=== PATIENT | female | born 1945 | race Caucasian/White ===

== ENCOUNTER → 2018-04-18 | Outpatient (CLI) | payer MEDICARE ==
--- NOTE | 2018-04-18 12:21 | Diagnostic Imaging Report ---
INDICATION: History of tobacco use with a 30 pack year history. Current tobacco use. TECHNIQUE: Noncontrast, low-dose CT imaging was performed according to lung cancer screening protocol. COMPARISON: CT chest of 06/17/2013. FINDINGS: HEART/MEDIASTINUM: The heart size is normal with mild scattered coronary artery calcifications. 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 Calcified mediastinal and hilar granulomas are present. No definitive evidence for pathologically enlarged lymphadenopathy. LUNGS: Advanced emphysematous changes about the lung parenchyma are present, progressed from the prior study. There is disproportionate involvement of the upper lobe distribution. MEASURED PULMONARY NODULES: There are prominent pleural/parenchymal changes at the lung apices, slightly progressed from the prior study but generally stable otherwise. Calcified granuloma in the right lower lobe. There are several scattered small micronodules present. Marker nodules are as follow: Image 227/series 4, right lower lobe solid nodule 3 x 2 mm. Image 227/series 4, posterior right lower lobe predominantly solid 3 mm nodule adjacent to the bronchus. Triangular shaped density along the inferior fissure plane anterior right mid lung 8 mm in maximum size (image 157/series 4). OTHER: None. IMPRESSION: 1. Emphysematous change about the lung parenchyma with scattered pleural/parenchymal changes, particularly in the lung apices. The findings have overall progressed from prior imaging. 2. A few scattered small micronodules with largest at 3 mm in size. 3. Findings compatible with prior granulomatous changes. LUNG-RADS CATEGORY: 2A LUNG SCREENING MANAGEMENT/RECOMMENDATIONS: Continued annual screening with low dose CT in 12 months. Notes: Lung rads category 1 or 2 does not mean that an individual does not have lung cancer or other active disease process, but rather nothing is identified to meet criteria for current lung pathology. Therefore, continued annual lung cancer screening should be performed. It is noted that this is a low dose CT examination. As a technical result, the examination is limited in overall assessment compared to a conventional CT examination of the chest. Dictated by: Dictated on workstation # [id number]
== END ==
LOC: RAD 07:47
PROVIDERS: ATTEND Family Medicine
DX: Z12.2 Encounter for screening for malignant neoplasm of respiratory organs (principal); J43.9 Emphysema, unspecified; F17.210 Nicotine dependence, cigarettes, uncomplicated; R91.8 Other nonspecific abnormal finding of lung field

== ENCOUNTER → 2018-05-15 | Outpatient (CLI) | payer MEDICARE ==
--- NOTE | 2018-05-15 12:39 | Diagnostic Imaging Report ---
INDICATION: Routine screening. COMPARISON is made with prior mammogram from 11/17/2012. TECHNIQUE: 2-D and 3-D bilateral screening mammography was performed with CAD. FINDINGS: Both breasts are heterogeneously dense, limiting the sensitivity of mammography. No mass or malignant appearing microcalcifications are seen. Axillae are unremarkable. IMPRESSION: BI-RADS category 1. No mammographic features suspicious for malignancy are identified. ACR BI-RADS Category 1: Negative. Result letter will be mailed to the patient. Note: At least 10% of breast cancer is not imaged by mammography. Dictated by: Dictated on workstation # [id number]
== END ==
LOC: RAD 07:53
PROVIDERS: ATTEND Nurse Practitioner Family
DX: Z12.31 Encounter for screening mammogram for malignant neoplasm of breast (principal)
CPT/HCPCS: 77067

== ENCOUNTER 2018-06-18 09:45 | Outpatient (CLI) | payer MEDICARE ==
[~2018-06-18] VITALS: Ht 167.6 cm; Wt 52.2 kg
[2018-06-18] MEDS ORDERED: CETI-176 PO (09:50)
[2018-06-18] MEDS ORDERED: MULT-974 PO (09:50)
[2018-06-18] MEDS ORDERED: CALC-823 PO (09:50)
== END 2018-06-18 10:01 | disposition home or self-care (01) ==
LOC: PREOP 09:45
PROVIDERS: ATTEND Specialist
DX: Z01.818 Encounter for other preprocedural examination (principal)

== ENCOUNTER 2018-06-20 08:55 | Day surgery (SDC) | payer MEDICARE ==
[~2018-06-20] VITALS: Ht 167.6 cm; Wt 52.2 kg
[~2018-06-20 08:55] MED LIST: CALC-823 PO; CETI-176 PO; MULT-974 PO
[2018-06-20] MEDS ORDERED: MOXIFLOXACIN OPHTH SOLN 5 MG/ML 0.3 ML SYRINGE OP ONE (09:00)
[2018-06-20] MEDS ORDERED: TIMOLOL MALEATE 0.5% 5 ML (TIMOPTIC) BTL OU PRN (09:00)
[2018-06-20] MEDS ORDERED: POVIDONE (BETADINE) OPHTH SOLN 5% 30 ML OP ONE (09:00)
[2018-06-20] MEDS ORDERED: LIDOCAINE PF 1% 2 ML AMP IR PRN (09:00)
[2018-06-20 09:01] VITALS: BP 180/78
--- OUTSIDE RECORDS SUMMARY | 2018-06-20 09:01 | XMS REPORT | CCD ---
Author Author Lottie Marshall MD, [facility] Address [address] [place] [address] Phone Care Team Providers Care Worship Leader Name Role Phone PP Unavailable CCM Unavailable Summary Purpose Interface Exchange Insurance Providers Payer name Policy type / Coverage type Covered constitution party ID Effective Begin Date Effective End Date WPS Medicare Part B Medicare Part B [id number] Unknown Family history Daughter Diagnosis Age At Onset No Family Disease Entered N/A Mother Diagnosis Age At Onset No Family Disease Entered N/A Father Diagnosis Age At Onset Heart Attack Unknown Brother Diagnosis Age At Onset No Family Disease Entered N/A Social History Social History Element Codes Description Effective Dates Marital status Unknown 03/25/2018 Number of children Unknown 1 04/20/2013 Employment Unknown Currently employed 04/20/[address]: 74489730 Current every day smoker 04/20/2013 Number of years using tobacco Unknown 20 04/20/2013 Number of cigarettes/day Unknown 20 (One Pack) 04/20/[address]: 778057391 Never drinks alcohol 04/20/2013 Has the patient ever used illegal drugs? Unknown Has never used illegal drugs 04/20/2013 Allergies, Adverse Reactions, Alerts Substance Reaction Codes Entered Date Inactivated Date Status * NO KNOWN FOOD ALLERGIES Unknown 04/20/2013 No Inactive Date Active Seasonal Unknown 04/20/2013 No Inactive Date Active SULFA (SULFONAMIDE ANTIBIOTICS) rash, nausea Unknown 2012 No Inactive Date Active Past Medical History Illness Codes Condition Status Onset Date Resolved Date Acute laryngopharyngitis ICD-9: 465.0 ICD-10: J06.0 Active 08/29/2016 Unknown Other allergic rhinitis ICD-9: 477.8 ICD-10: J30.89 Active 03/25/2018 Unknown Pneumonia due to other specified bacteria ICD-9: 482.81 ICD-10: J15.8 Active 06/02/2018 Unknown Encounter for screening mammogram for malignant neoplasm of breast ICD-9: V76.12 ICD-10: Z12.31 Active 09/03/2016 Unknown Other emphysema ICD-9 : 492.8 ICD-10: J43.8 Active 04/15/2018 Unknown Tobacco use ICD-9: 305.1 ICD-10: Z72.0 Active 04/20/2013 Unknown Otalgia, right ear ICD -9: 388.70 ICD-10: H92.01 Active 04/21/2015 Unknown Periapical abscess without sinus ICD-9: 522.5 ICD-10: K04.7 Active 02/15/2017 Unknown Cough ICD-9: 786.2 ICD-10: R05 Active 04/13/2014 Unknown Acute bronchitis due to other specified organisms ICD-9: 466.0 ICD-10: J20.8 Active 04/13/2014 Unknown Generalized enlarged lymph nodes ICD-9: 785.6 ICD-10: R59.1 Active 05/06/2016 Unknown Otalgia, bilateral ICD -9: 388.70 ICD-10: H92.03 Active 11/06/2015 Unknown Chronic obstructive pulmonary disease, unspecified ICD-9: 491.20 ICD-10: J44.9 Active 04/18/2015 Unknown Tinnitus, bilateral ICD-9: 388.30 ICD-10: H93.13 Active 04/18/2015 Unknown Allergic rhinitis, unspecified ICD-9: 477.9 ICD-10: J30.9 Active 03/21/2015 Unknown ACUTE BRONCHITIS ICD-9 : 466.0 Active 04/13/2014 Unknown ACUTE SINUSITIS ICD-9 : 461.9 Active 04/13/2014 Unknown COUGH ICD-9: 786.2 Active 04/13/2014 Unknown Sciatica Unknown Active 03/29/2014 Unknown Right hip pain ICD-9: 719.45 Active 03/29/2014 Unknown Sciatica ICD-9: 724.3 Active 03/29/2014 Unknown Shoulder pain, acute ICD-9: 719.41 Active 03/29/2014 Unknown Rash ICD-9: 782.1 Active 09/10/2013 Unknown Routine medical exam ICD-9: V70.0 Active 04/20/2013 Unknown TOBACCO USE DISORDER ICD-9: 305.1 Active 04/20/2013 Unknown Problems Condition Codes Effective Dates Condition Status Acute laryngopharyngitis ICD-9: 465.0 ICD-10: J06.0 08/29/2016 Active Other allergic rhinitis ICD-9: 477.8 ICD-10: J30.89 03/25/2018 Active Pneumonia due to other specified bacteria ICD-9: 482.81 ICD-10: J15.8 06/02/2018 Active Encounter for screening mammogram for malignant neoplasm of breast ICD-9: V76.12 ICD-10: Z12.31 09/03/2016 Active Other emphysema ICD-9 : 492.8 ICD-10: J43.8 04/15/2018 Active Tobacco use ICD-9: 305.1 ICD-10: Z72.0 04/20/2013 Active Otalgia, right ear ICD -9: 388.70 ICD-10: H92.01 04/21/2015 Active Periapical abscess without sinus ICD-9: 522.5 ICD-10: K04.7 02/15/2017 Active Cough ICD-9: 786.2 ICD-10: R05 04/13/2014 Active Acute bronchitis due to other specified organisms ICD-9: 466.0 ICD-10: J20.8 04/13/2014 Active Generalized enlarged lymph nodes ICD-9: 785.6 ICD-10: R59.1 05/06/2016 Active Otalgia, bilateral ICD -9: 388.70 ICD-10: H92.03 11/06/2015 Active Chronic obstructive pulmonary disease, unspecified ICD-9: 491.20 ICD-10: J44.9 04/18/2015 Active Tinnitus, bilateral ICD-9: 388.30 ICD-10: H93.13 04/18/2015 Active Allergic rhinitis, unspecified ICD-9: 477.9 ICD-10: J30.9 03/21/2015 Active ACUTE BRONCHITIS ICD-9 : 466.0 04/13/2014 Active ACUTE SINUSITIS ICD-9 : 461.9 04/13/2014 Active COUGH ICD-9: 786.2 04/13/2014 Active Sciatica Unknown 03/29/2014 Active Right hip pain ICD-9: 719.45 03/29/2014 Active Sciatica ICD-9: 724.3 03/29/2014 Active Shoulder pain, acute ICD-9: 719.41 03/29/2014 Active Rash ICD-9: 782.1 09/10/2013 Active Routine medical exam ICD-9: V70.0 04/20/2013 Active TOBACCO USE DISORDER ICD-9: 305.1 04/20/2013 Active Medications Medication Codes Instructions Start Date Stop Date Status Fill Instructions prednisone 20 mg tablet RxNorm: 629952 2 Tablet(s) PO daily 06/06/2018 Active Zithromax Z-Sukumar 250 mg tablet RxNorm: 243265 1 Tablet(s) PO QHS 06/02/2018 No Stop Date Active cefdinir 300 mg capsule RxNorm: 948873 1 Capsule(s) PO BID 06/11/2018 Active Kenalog 40 mg/mL suspension for injection RxNorm: 0806820 1 Milliliter(s) Inj 06/02/2018 06/02/2018 Inactive ceftriaxone 500 mg solution for injection RxNorm: 5605877 1 Milliliter(s) Inj 06/02/2018 06/02/2018 Inactive albuterol sulfate 2.5 mg/3 mL (0.083 %) solution for nebulization RxNorm: 622871 3 Milliliter(s) INH Q4 PRN 04/17/2018 06/15/2018 Active Kenalog 40 mg/mL suspension for injection RxNorm: 3143872 1 Milliliter(s) Inj 03/25/2018 03/25/2018 Inactive naratriptan 2.5 mg tablet RxNorm: 081869 TAKE ONE TABLET BY MOUTH AT ONSET OF MIGRAINE. MAY REPEAT IN 4 HOURS. LIMIT 2 TABLETS PER 24 HOURS. 09/16/2017 No Stop Date Active prednisone 10 mg tablets in a dose pack RxNorm: 502920 1 Tablet(s) PO UD 06/24/2017 06/29/2017 Inactive 6-5-4-3-2-1 cefdinir 300 mg capsule RxNorm: 346778 1 Capsule(s) PO BID 09/201707/03/2017 Inactive Zithromax Z-Sukumar 250 mg tablet RxNorm: 750633 1 Tablet(s) PO UD 06/21/2017 06/25/2017 Inactive zpack Zithromax Z-Sukumar 250 mg tablet RxNorm: 519683 1 Tablet(s) PO UD 04/17/2017 04/21/2017 Inactive zpack amoxicillin 500 mg tablet RxNorm: 873051 1 Tablet(s) PO TID 02/21/2017 Inactive naratriptan 2.5 mg tablet RxNorm: 738606 Tablet(s) TAKE ONE TABLET BY MOUTH AT ONSET OF MIGRAINE, MAY REPEAT IN 4 HOURS. LIMIT 5/24 HOURS. 12/10/2016 12/11/2016 Inactive Zithromax Z-Sukumar 250 mg tablet RxNorm: 634967 1 Tablet(s) PO UD 08/29/2016 09/02/2016 Inactive zpack Elimite 5 % topical cream RxNorm: 947461 1 TOP time may repeat in two weeks 05/24/2016 06/22/2016 Inactive Elimite 5 % topical cream RxNorm: 640151 1 TOP time may repeat in two weeks 05/24/2016 05/23/2016 Inactive azithromycin 250 mg tablet RxNorm: 213797 1 Tablet(s) PO UD 2 pills on day #1, then one pill daily x 4 more days 05/07/2016 08/28/2016 Inactive naratriptan 2.5 mg tablet RxNorm: 181630 TAKE ONE TABLET BY MOUTH AT ONSET OF MIGRAINE, MAY REPEAT IN 4 HOURS. LIMIT 5/24 HOURS. 201503/09/2016 Inactive naratriptan 1 mg tablet RxNorm: 932935 Tablet(s) TAKE ONE TABLET BY MOUTH AT ONSET OF MIGRAINE, MAY REPEAT IN 4 HOURS IF MIGRAINE IS NOT RESOLVED...LIMIT 5 PER 25 HOURS 04/11/2015 06/23/2017 Inactive INSURANCE WILL NOT PAY FOR MORE THAN 9 PILLS PER RX prednisone 10 mg tablets in a dose pack RxNorm: 569987 1 Tablet(s) PO UD 03/28/2015 04/02/2015 Inactive 6-5-4-3-2-1 prednisone 10 mg tablets in a dose pack RxNorm: 498246 1 Tablet(s) PO UD 03/28/2015 03/27/2015 Inactive 6-5-4-3-2-1 Kenalog 40 mg/mL suspension for injection RxNorm: 4140203 Milliliter(s) Inj 03/22/2015 03/22/2015 Inactive Keflex 500 mg capsule RxNorm: 475798 1 Capsule(s) PO TID 201403/28/2015 Inactive naratriptan 2.5 mg tablet RxNorm: 887942 Tablet(s) PO PRN as needed 01/19/2015 03/07/2016 Inactive one at onset of migraine, may repeat in 4 hrs. limit 5 in 24 hr.s naratriptan 1 mg tablet RxNorm: 632519 Tablet(s) TAKE ONE TABLET BY MOUTH AT ONSET OF MIGRAINE, MAY REPEAT IN 4 HOURS IF MIGRAINE IS NOT RESOLVED...LIMIT 5 PER 25 HOURS 01/14/2015 01/29/2015 Inactive naratriptan 1 mg tablet RxNorm: 102251 Tablet(s) TAKE ONE TABLET BY MOUTH AT ONSET OF MIGRAINE, MAY REPEAT IN 4 HOURS IF MIGRAINE IS NOT RESOLVED...LIMIT 5 PER 25 HOURS 09/27/2014 10/12/2014 Inactive naratriptan 1 mg tablet RxNorm: 179598 TAKE ONE TABLET BY MOUTH AT ONSET OF MIGRAINE, MAY REPEAT IN 4 HOURS IF MIGRAINE IS NOT RESOLVED...LIMIT 5 PER 25 HOURS 07/16/2014 07/31/2014 Inactive ceftriaxone 500 mg solution for injection RxNorm: 575506 Inj 04/13/2014 Inactive albuterol sulfate 2.5 mg/3 mL (0.083 %) solution for nebulization RxNorm: 922771 3 Milliliter(s) INH Q4 PRN 04/13/2014 06/11/2014 Inactive Kenalog 40 mg/mL suspension for injection RxNorm: 3514934 Milliliter(s) Inj 04/13/2014 04/13/2014 Inactive Flonase 50 mcg/actuation nasal spray,suspension RxNorm: 461286 1 [place] NASAL daily 04/13/2014 04/26/2014 Inactive Zithromax Z-Sukumar 250 mg tablet RxNorm: 727181 1 Tablet(s) PO UD 04/13/2014 04/17/2014 Inactive zpack Kenalog 40 mg/mL suspension for injection RxNorm: 0490666 Milliliter(s) Inj 03/29/2014 03/29/2014 Inactive nystatin-triamcinolone 100,000 unit/g-0.1 % topical cream RxNorm: 1934972 1 Application TOP BID 09/10/2013 09/23/2013 Inactive Bactroban 2 % topical cream RxNorm: 522757 1 Application TOP BID 09/10/2013 09/23/2013 Inactive naratriptan 2.5 mg tablet RxNorm: 843798 Tablet(s) PO PRN 08/2001/18/2015 Inactive one at onset of migraine, may repeat in 4 hrs. limit 5 in 24 hr.s naratriptan 1 mg tablet RxNorm: 279318 1 Tablet(s) PO 201308/19/2013 Inactive one at onset of migraine may repeat in in 4 hr if migraine not resolved. limit 5mg in 25 hr. multivitamin capsule RxNorm: 1 Capsule(s) PO daily No Start Date Active Fish Oil 1,000 mg capsule RxNorm: 1 Capsule(s) PO daily No Start Date Active Calcium 600 + D(3) 600 mg (1,500 mg)-400 unit tablet RxNorm: 975684 2 Tablet(s) PO daily No Start Date Active naratriptan 1 mg tablet RxNorm: 350027 1 Tablet(s) PO No Start Date 07/06/2013 Inactive one at onset of migraine may repeat in naratriptan 2.5 mg tablet RxNorm: 221987 Tablet(s) PO PRN No Start Date 08/19/2013 Inactive Zomig 2.5 mg tablet RxNorm: 071794 Tablet(s) PO PRN No Start Date 08/19/2013 Inactive Daliresp 500 mcg tablet RxNorm: 3818837 1 Tablet(s) PO daily No Start Date 11/06/2015 Inactive Medication Administered Medication Codes Instructions Start Date Status ceftriaxone 500 mg solution for injection RxNorm: 6626347 1Milliliter 06/02/2018 Active Kenalog 40 mg/mL suspension for injection RxNorm: 8867678 1Milliliter 06/02/2018 Active Kenalog 40 mg/mL suspension for injection RxNorm: 3411877 1Milliliter 03/25/2018 No longer Active Kenalog 40 mg/mL suspension for injection RxNorm: 6736892 Milliliter 03/22/2015 No longer Active ceftriaxone 500 mg solution for injection RxNorm: 562040 04/13/2014 No longer Active Kenalog 40 mg/mL suspension for injection RxNorm: 2752636 Milliliter 04/13/2014 No longer Active Kenalog 40 mg/mL suspension for injection RxNorm: 6881878 Milliliter 03/29/2014 No longer Active Immunizations Vaccine Codes Date Status Influenza CVX: 141 02/17/2018 completed PPD Unknown 04/22/2015 completed Assessments Condition Codes Effective Dates Pneumonia due to other specified bacteria ICD-10: J15.8 ICD-9: 482.81 06/02/2018 Acute laryngopharyngitis ICD-10: J06.0 ICD-9: 465.0 06/02/2018 Other allergic rhinitis ICD-10: J30.89 ICD-9: 477.8 06/02/2018 Tobacco use ICD-10: Z72.0 ICD-9: 305.1 04/15/2018 Other emphysema ICD-10: J43.8 ICD-9: 492.8 04/15/2018 Encounter for screening mammogram for malignant neoplasm of breast ICD-10: Z12.31 ICD-9: V76.12 04/15/2018 Otalgia, right ear ICD-10: H92.01 ICD-9: 388.70 03/25/2018 Periapical abscess without sinus ICD-10: K04.7 ICD-9: 522.5 02/15/2017 Cough ICD-10: R05 ICD-9: 786.2 09/03/2016 Acute bronchitis due to other specified organisms ICD-10: J20.8 ICD-9: 466.0 05/07/2016 Generalized enlarged lymph nodes ICD-10: R59.1 ICD-9: 785.6 05/07/2016 Otalgia, bilateral ICD-10: H92.03 ICD-9: 388.70 11/07/2015 Chronic obstructive pulmonary disease, unspecified ICD-10: J44.9 ICD-9: 491.20 04/19/2015 Tinnitus, bilateral ICD-10: H93.13 ICD-9: 388.30 04/19/2015 Allergic rhinitis, unspecified ICD-10: J30.9 ICD-9: 477.9 03/22/2015 ACUTE BRONCHITIS ICD-9: 466.0 04/13/2014 ACUTE SINUSITIS ICD-9: 461.9 04/13/2014 COUGH ICD-9: 786.2 04/13/2014 Right hip pain ICD-9: 719.45 03/29/2014 Sciatica ICD-9: 724.3 03/29/2014 Shoulder pain, acute ICD-9: 719.41 2013 Rash ICD-9: 782.1 09/10/2013 Routine medical exam ICD-9: V70.0 2012 TOBACCO USE DISORDER ICD-9: 305.1 2012 Reason For Visit Reason For Visit Effective Dates Notes sinus congestion 06/02/2018 well woman exam (65+ years) 04/15/2018 tinnitus 03/25/2018 cough 06/24/2017 dental pain 02/15/2017 cough 09/03/2016 cough 08/29/2016 sore throat 05/07/2016 tinnitus 11/07/2015 tinnitus 04/19/2015 tinnitus 03/22/2015 sinus congestion 04/13/2014 shoulder pain 03/29/2014 right shoulder skin lesion 09/10/2013 headache 04/20/2013 Results Observation Observation Code Item Item Code Result Date Tsh Ord6 TSH (3rd IS) 1.01 uIU/mL 04/15/2018 Cbc With Differential Ord2 WBC 7.01 K/ul 04/15/2018 Cbc With Differential Ord2 RBC 4.50 M/ul 04/15/2018 Cbc With Differential Ord2 HGB 13.8 g/dl 04/15/2018 Cbc With Differential Ord2 Neut% 60.8 % 04/15/2018 Cbc With Differential Ord2 HCT 42.1 % 04/15/2018 Cbc With Differential Ord2 MCV 93.6 fl 04/15/2018 Cbc With Differential Ord2 Lymph% 31.0 % 04/15/2018 Cbc With Differential Ord2 MCH 30.7 pg 04/15/2018 Cbc With Differential Ord2 Mathews% 6.7 % 04/15/2018 Cbc With Differential Ord2 MCHC 32.8 pg 04/15/2018 Cbc With Differential Ord2 Eos% 1.4 % 04/15/2018 Cbc With Differential Ord2 Baso% 0.1 % 04/15/2018 Cbc With Differential Ord2 PLT 290 K/ul 04/15/2018 Cbc With Differential Ord2 RDW 13.8 % 04/15/2018 Cbc With Differential Ord2 Neut ABS# 4.26 K/ul 04/15/2018 Cbc With Differential Ord2 Lymph ABS# 2.17 K/ul 04/15/2018 Cbc With Differential Ord2 Mathews ABS# 0.5 K/ul 04/15/2018 Cbc With Differential Ord2 Eos ABS# 0.1 K/ul 04/15/2018 Cbc With Differential Ord2 Baso ABS# 0.0 K/ul 04/15/2018 Comp Metabolic Fxy970 NA 137 mEq/L 04/15/2018 Comp Metabolic Wiw195 K 4.5 mEq/L 04/15/2018 Comp Metabolic Qww206 CL 100 mEq/L 04/15/2018 Comp Metabolic Ola111 CO2 29.0 mEq/L 04/15/2018 Comp Metabolic Ejq047 ANION GAP 13 04/15/2018 Comp Metabolic Hia115 GLUCOSE 93 mg/dL 04/15/2018 Comp Metabolic Flq261 Creat 0.8 mg/dL 04/15/2018 Comp Metabolic Whn770 eGFR 79 ml/min/1.73m2 04/15/2018 Comp Metabolic Dvo935 BUN 21 mg/dL 04/15/2018 Comp Metabolic Xeh010 B/C Ratio 27.3 Ratio 04/15/2018 Comp Metabolic Hlt988 CALCIUM 9.5 mg/dL 04/15/2018 Comp Metabolic Vtw900 ALK PHOS 81 U/L 04/15/2018 Comp Metabolic Kht294 AST(SGOT) 20 U/L 04/15/2018 Comp Metabolic Vhr006 ALT(SGPT) 12 U/L 04/15/2018 Comp Metabolic Pfp525 BILI T 0.6 mg/dL 04/15/2018 Comp Metabolic Nqp911 ALBUMIN 4.3 g/dL 04/15/2018 Comp Metabolic Ddn536 TPRO 7.0 g/dL 04/15/2018 Comp Metabolic Ody847 GLOB 2.7 g/dL 04/15/2018 Comp Metabolic Iyu177 A/G Ratio 1.6 Ratio 04/15/2018 Comp Metabolic Bis729 Osmo 276 mOsmo 04/15/2018 Lipid Ord30 CHOL 205 mg/dL 04/15/2018 Lipid Ord30 HDL 51.0 mg/dl 04/15/2018 Lipid Ord30 TRIG 79 mg/dL 04/15/2018 Lipid Ord30 LDL 138 mg/dL 04/15/2018 Lipid Ord30 C/HDL 4.0 Ratio 04/15/2018 Vitamin D 25 Oh Lcs5470 VITAMIN D, 25 HYDROXY 46.83 ng/mL Cbc With Differential Ord2 WBC 5.13 K/ul 10/18/2015 Cbc With Differential Ord2 RBC 4.72 M/ul 10/18/2015 Cbc With Differential Ord2 HGB 14.4 g/dl 10/18/2015 Cbc With Differential Ord2 HCT 44.4 % 10/18/2015 Cbc With Differential Ord2 Neut% 54.6 % 10/18/2015 Cbc With Differential Ord2 MCV 94.1 fl 10/18/2015 Cbc With Differential Ord2 Lymph% 33.5 % 10/18/2015 Cbc With Differential Ord2 MCH 30.5 pg 10/18/2015 Cbc With Differential Ord2 Mathews% 6.0 % 10/18/2015 Cbc With Differential Ord2 MCHC 32.4 pg 10/18/2015 Cbc With Differential Ord2 Eos% 5.5 % 10/18/2015 Cbc With Differential Ord2 PLT 286 K/ul 10/18/2015 Cbc With Differential Ord2 Baso% 0.4 % 10/18/2015 Cbc With Differential Ord2 Neut ABS# 2.80 K/ul 10/18/2015 Cbc With Differential Ord2 RDW 14.0 % 10/18/2015 Cbc With Differential Ord2 Lymph ABS# 1.72 K/ul 10/18/2015 Cbc With Differential Ord2 Mathews ABS# 0.3 K/ul 10/18/2015 Cbc With Differential Ord2 Eos ABS# 0.3 K/ul 10/18/2015 Cbc With Differential Ord2 Baso ABS# 0.0 K/ul 10/18/2015 Comp Metabolic Ont386 NA 138 mEq/L 10/18/2015 Comp Metabolic Jhw336 K 4.4 mEq/L 10/18/2015 Comp Metabolic Jts388 CL 103 mEq/L 10/18/2015 Comp Metabolic Kwc300 CO2 30.0 mEq/L 10/18/2015 Comp Metabolic Zlz868 ANION GAP 9 10/18/2015 Comp Metabolic Xxy529 GLUCOSE 93 mg/dL 10/18/2015 Comp Metabolic Ovi048 Creat 0.7 mg/dL 10/18/2015 Comp Metabolic Xrn592 eGFR 90 ml/min/1.73m2 10/18/2015 Comp Metabolic Pnp605 BUN 19 mg/dL 10/18/2015 Comp Metabolic Pem657 B/C Ratio 27.5 Ratio 10/18/2015 Comp Metabolic Ghl941 CALCIUM 9.3 mg/dL 10/18/2015 Comp Metabolic Qam989 ALK PHOS 95 U/L 10/18/2015 Comp Metabolic Usm746 AST(SGOT) 17 U/L 10/18/2015 Comp Metabolic Svb052 ALT(SGPT) 10 U/L 10/18/2015 Comp Metabolic Xxd447 BILI T 0.5 mg/dL 10/18/2015 Comp Metabolic Sre473 ALBUMIN 4.4 g/dL 10/18/2015 Comp Metabolic Zrd790 TPRO 7.2 g/dL 10/18/2015 Comp Metabolic Uax063 GLOB 2.8 g/dL 10/18/2015 Comp Metabolic Wil229 A/G Ratio 1.6 Ratio 10/18/2015 Comp Metabolic Mwv766 Osmo 278 mOsmo 10/18/2015 Lipid Ord30 CHOL 201 mg/dL 10/18/2015 Lipid Ord30 HDL 45.0 mg/dl 10/18/2015 Lipid Ord30 TRIG 122 mg/dL 10/18/2015 Lipid Ord30 LDL 132 mg/dL 10/18/2015 Lipid Ord30 C/HDL 4.5 Ratio 10/18/2015 Tsh Ord6 hTSH II 1.46 uIU/mL 10/18/2015 Vitamin D 25 Oh Htm3387 VITAMIN D, 25 HYDROXY 42.46 ng/mL Comp Metabolic Lrb346 NA 135 mEq/L 03/24/2015 Comp Metabolic Bhd351 K 4.1 mEq/L 03/24/2015 Comp Metabolic Vfl835 CL 103 mEq/L 03/24/2015 Comp Metabolic Jeb443 CO2 28.0 mEq/L 03/24/2015 Comp Metabolic Mmm313 ANION GAP 8 03/24/2015 Comp Metabolic Cdt546 GLUCOSE 101 mg/dL 03/24/2015 Comp Metabolic Pts619 Creat 0.7 mg/dL 03/24/2015 Comp Metabolic Agg966 eGFR 87 ml/min/1.73m2 03/24/2015 Comp Metabolic Rfc611 BUN 17 mg/dL 03/24/2015 Comp Metabolic Bqo239 B/C Ratio 23.9 Ratio 03/24/2015 Comp Metabolic Hbx355 CALCIUM 10.0 mg/dL 03/24/2015 Comp Metabolic Gxy198 ALK PHOS 86 U/L 03/24/2015 Comp Metabolic Kgs236 AST(SGOT) 20 U/L 03/24/2015 Comp Metabolic Dhf327 ALT(SGPT) 13 U/L 03/24/2015 Comp Metabolic Neh909 BILI T 0.5 mg/dL 03/24/2015 Comp Metabolic Fxp905 ALBUMIN 4.8 g/dL 03/24/2015 Comp Metabolic Pqs177 TPRO 7.8 g/dL 03/24/2015 Comp Metabolic Pak200 GLOB 3.0 g/dL 03/24/2015 Comp Metabolic Qks495 A/G Ratio 1.6 Ratio 03/24/2015 Comp Metabolic Fef458 Osmo 272 mOsmo 03/24/2015 Tsh Ord6 hTSH II 0.97 uIU/mL 03/24/2015 Cbc With Differential Ord2 WBC 7.5 K/uL 03/24/2015 Cbc With Differential Ord2 LYM 1.7 K/uL 03/24/2015 Cbc With Differential Ord2 LYM% 22.6 % 03/24/2015 Cbc With Differential Ord2 NEUT/GRAN 5.4 K/uL 03/24/2015 Cbc With Differential Ord2 NEUT/GRAN % 72.6 % 03/24/2015 Cbc With Differential Ord2 MID 0.4 K/uL 03/24/2015 Cbc With Differential Ord2 MID% 4.8 % 03/24/2015 Cbc With Differential Ord2 RBC 4.65 M/uL 03/24/2015 Cbc With Differential Ord2 HGB 14.4 g/dL 03/24/2015 Cbc With Differential Ord2 HCT 44.6 % 03/24/2015 Cbc With Differential Ord2 MCV 96 fL 03/24/2015 Cbc With Differential Ord2 MCH 31 pg 03/24/2015 Cbc With Differential Ord2 MCHC 32 g/dL 03/24/2015 Cbc With Differential Ord2 PLT 281 K/uL 03/24/2015 Cbc With Differential Ord2 RDW 14.3 % 03/24/2015 Lipid Ord30 CHOL 211 mg/dL 03/24/2015 Lipid Ord30 HDL 48.0 mg/dl 03/24/2015 Lipid Ord30 TRIG 88 mg/dL 03/24/2015 Lipid Ord30 LDL 145 mg/dL 03/24/2015 Lipid Ord30 C/HDL 4.4 Ratio 03/24/2015 Review of Systems System Result Effective Dates Constitutional recent illness 06/02/2018 Constitutional No chills 06/02/2018 Constitutional No diaphoresis 06/02/2018 Constitutional No fever 06/02/2018 Eyes No eye erythema 06/02/2018 Ears/Nose/Throat/Neck nasal allergies Ears/Nose/Throat/Neck nasal discharge Ears/Nose/Throat/Neck postnasal drip Ears/Nose/Throat/Neck sinus congestion Ears/Nose/Throat/Neck sore throat 2018 Cardiovascular No chest pain/pressure Cardiovascular No dyspnea 06/02/2018 Respiratory chest congestion 06/02/2018 Respiratory cough 06/02/2018 Respiratory No dyspnea 06/02/2018 Gastrointestinal No constipation 2018 Gastrointestinal No diarrhea 06/02/2018 Gastrointestinal No nausea 06/02/2018 Gastrointestinal No vomiting 06/02/2018 Dermatologic No rash 06/02/2018 Neurologic No alteration of consciousness 06/02/2018 Neurologic No mental status change 2018 Respiratory dyspnea on exertion 2018 Constitutional No recent illness 2017 Constitutional No chills 04/15/2018 Constitutional No fatigue 04/15/2018 Constitutional No fever 04/15/2018 Constitutional No insomnia 04/15/2018 Constitutional No malaise 04/15/2018 Eyes No blindness 04/15/2018 Eyes No vision change 04/15/2018 Ears/Nose/Throat/Neck No dental pain Ears/Nose/Throat/Neck No dizziness 2017 Ears/Nose/Throat/Neck No dysphagia 2017 Ears/Nose/Throat/Neck No headache 2017 Ears/Nose/Throat/Neck hearing loss 2017 Ears/Nose/Throat/Neck No nasal allergies 04/15/2018 Ears/Nose/Throat/Neck No sore throat Ears/Nose/Throat/Neck No postnasal drip 04/15/2018 Ears/Nose/Throat/Neck No sinus congestion 04/15/2018 Cardiovascular No chest pain/pressure Cardiovascular No dyspnea 04/15/2018 Cardiovascular No edema 04/15/2018 Cardiovascular No exercise intolerance Cardiovascular No fatigue 04/15/2018 Cardiovascular No near-syncope/dizziness 04/15/2018 Respiratory No chest tightness 2017 Respiratory cigarette smoking 04/15/2018 Respiratory No cough 04/15/2018 Respiratory No dyspnea 04/15/2018 Respiratory No pedal edema 04/15/2018 Respiratory No snoring 04/15/2018 Respiratory No wheezing 04/15/2018 Gastrointestinal No hemorrhoids 2017 Gastrointestinal No abdominal pain 2017 Gastrointestinal No constipation 2017 Gastrointestinal No diarrhea 04/15/2018 Gastrointestinal No gastroesophageal reflux 04/15/2018 Gastrointestinal No melena 04/15/2018 Gastrointestinal No nausea 04/15/2018 Gastrointestinal No vomiting 04/15/2018 Genitourinary/Nephrology No dysuria 04/15 Genitourinary/Nephrology No nocturia Genitourinary/Nephrology No urinary incontinence 04/15/2018 Musculoskeletal No stiffness 04/15/2018 Musculoskeletal No swelling 04/15/2018 Musculoskeletal No muscle weakness 2017 Musculoskeletal No myalgias 04/15/2018 Dermatologic No rash 04/15/2018 Dermatologic No scar 04/15/2018 Neurologic No dizziness 04/15/2018 Neurologic No headache 04/15/2018 Neurologic No neck pain 04/15/2018 Neurologic No syncope 04/15/2018 Psychiatric No anxiety 04/15/2018 Psychiatric No depression 04/15/2018 Ears/Nose/Throat/Neck No dizziness 2017 Ears/Nose/Throat/Neck No facial pain 10/2017 Ears/Nose/Throat/Neck No headache 2017 Ears/Nose/Throat/Neck hearing loss 2017 Ears/Nose/Throat/Neck No sore throat 10/2017 Ears/Nose/Throat/Neck tinnitus 2017 Respiratory cough 03/25/2018 Respiratory cigarette smoking 03/25/2018 Respiratory No wheezing 03/25/2018 Cardiovascular No orthopnea 03/25/2018 Cardiovascular No palpitations 2017 Cardiovascular No dyspnea 03/25/2018 Cardiovascular No chest pain/pressure 10/2017 Gastrointestinal No abdominal pain 2017 Constitutional recent illness 03/25/2018 Constitutional No anorexia 03/25/2018 Constitutional No night sweats 2017 Constitutional No chills 03/25/2018 Constitutional No diaphoresis 03/25/2018 Constitutional No fatigue 03/25/2018 Constitutional No fever 03/25/2018 Constitutional No insomnia 03/25/2018 Constitutional No malaise 03/25/2018 Constitutional No weight loss 03/25/2018 Constitutional No weight gain 03/25/2018 Eyes No eye discharge 03/25/2018 Eyes No eye erythema 03/25/2018 Ears/Nose/Throat/Neck otalgia 03/25/2018 Ears/Nose/Throat/Neck sinus congestion Genitourinary/Nephrology No dysuria 03/25 Dermatologic No rash 03/25/2018 Dermatologic No sores 03/25/2018 Neurologic No alteration of consciousness 03/25/2018 Constitutional recent illness 06/24/2017 Constitutional No fever 06/24/2017 Constitutional No chills 06/24/2017 Constitutional No diaphoresis 06/24/2017 Eyes No eye erythema 06/24/2017 Ears/Nose/Throat/Neck nasal allergies 09/2017 Ears/Nose/Throat/Neck nasal discharge 09/2017 Ears/Nose/Throat/Neck postnasal drip 09/2017 Ears/Nose/Throat/Neck sore throat 2017 Cardiovascular No chest pain/pressure 09/2017 Respiratory chest congestion 06/24/2017 Respiratory cough 06/24/2017 Respiratory No dyspnea 06/24/2017 Gastrointestinal No constipation 2017 Gastrointestinal No diarrhea 06/24/2017 Gastrointestinal No nausea 06/24/2017 Gastrointestinal No vomiting 06/24/2017 Dermatologic No rash 06/24/2017 Neurologic No alteration of consciousness 06/24/2017 Neurologic No mental status change 2017 Constitutional No recent illness 2016 Constitutional No anorexia 02/15/2017 Constitutional No night sweats 2016 Constitutional No chills 02/15/2017 Constitutional No diaphoresis 02/15/2017 Constitutional No fatigue 02/15/2017 Constitutional No fever 02/15/2017 Constitutional No insomnia 02/15/2017 Constitutional No malaise 02/15/2017 Constitutional No weight loss 02/15/2017 Constitutional No weight gain 02/15/2017 Ears/Nose/Throat/Neck oral pain 2016 Cardiovascular No chest pain/pressure Cardiovascular No dyspnea 02/15/2017 Cardiovascular No edema 02/15/2017 Respiratory No cough 02/15/2017 Gastrointestinal No vomiting 02/15/2017 Gastrointestinal No nausea 02/15/2017 Gastrointestinal No diarrhea 02/15/2017 Musculoskeletal No joint complaint 2016 Dermatologic No rash 02/15/2017 Constitutional recent illness 09/03/2016 Constitutional No anorexia 09/03/2016 Constitutional No night sweats 2016 Constitutional No chills 09/03/2016 Constitutional No diaphoresis 09/03/2016 Constitutional No fatigue 09/03/2016 Constitutional No fever 09/03/2016 Constitutional No insomnia 09/03/2016 Constitutional No malaise 09/03/2016 Constitutional weight loss 09/03/2016 Eyes No eye discharge 09/03/2016 Eyes No eye erythema 09/03/2016 Ears/Nose/Throat/Neck No dizziness 2016 Ears/Nose/Throat/Neck No headache 2016 Ears/Nose/Throat/Neck nasal allergies Ears/Nose/Throat/Neck No nasal discharge 09/03/2016 Ears/Nose/Throat/Neck otalgia 09/03/2016 Ears/Nose/Throat/Neck sinus congestion Ears/Nose/Throat/Neck No sore throat Cardiovascular No chest pain/pressure Respiratory No productive sputum 2016 Respiratory No chest congestion 2016 Respiratory cigarette smoking 09/03/2016 Respiratory cough 09/03/2016 Gastrointestinal No abdominal pain 2016 Gastrointestinal No constipation 2016 Gastrointestinal No diarrhea 09/03/2016 Genitourinary/Nephrology No dysuria 09/03 Musculoskeletal No joint complaint 2016 Dermatologic No rash 09/03/2016 Dermatologic No sores 09/03/2016 Neurologic No alteration of consciousness 09/03/2016 Constitutional recent illness 08/29/2016 Constitutional No diaphoresis 08/29/2016 Constitutional fever 08/29/2016 Eyes No eye erythema 08/29/2016 Ears/Nose/Throat/Neck nasal allergies 04/2017 Ears/Nose/Throat/Neck nasal discharge 04/2017 Ears/Nose/Throat/Neck postnasal drip 04/2017 Ears/Nose/Throat/Neck sore throat 2016 Cardiovascular No chest pain/pressure 04/2017 Respiratory cough 08/29/2016 Respiratory No dyspnea 08/29/2016 Gastrointestinal No constipation 2016 Gastrointestinal No diarrhea 08/29/2016 Gastrointestinal No nausea 08/29/2016 Gastrointestinal No vomiting 08/29/2016 Dermatologic No rash 08/29/2016 Neurologic No alteration of consciousness 08/29/2016 Neurologic No mental status change 2016 Constitutional No chills 08/29/2016 Respiratory chest congestion 08/29/2016 Constitutional recent illness 05/07/2016 Constitutional anorexia 05/07/2016 Constitutional night sweats 05/07/2016 Constitutional chills 05/07/2016 Constitutional diaphoresis 05/07/2016 Constitutional fatigue 05/07/2016 Constitutional fever 05/07/2016 Constitutional No insomnia 05/07/2016 Constitutional No malaise 05/07/2016 Cardiovascular No chest pain/pressure Gastrointestinal No abdominal pain 2015 Gastrointestinal No constipation 2015 Gastrointestinal No diarrhea 05/07/2016 Genitourinary/Nephrology No dysuria 05/07 Musculoskeletal No joint complaint 2015 Dermatologic No rash 05/07/2016 Dermatologic No sores 05/07/2016 Neurologic No alteration of consciousness 05/07/2016 Ears/Nose/Throat/Neck No hoarseness 05/07 Ears/Nose/Throat/Neck neck swelling 05/07 Constitutional No recent illness 2015 Constitutional No chills 11/07/2015 Constitutional fatigue 11/07/2015 Constitutional No fever 11/07/2015 Constitutional No insomnia 11/07/2015 Constitutional malaise 11/07/2015 Eyes No blindness 11/07/2015 Eyes No vision change 11/07/2015 Ears/Nose/Throat/Neck No dental pain Ears/Nose/Throat/Neck No dizziness 2015 Ears/Nose/Throat/Neck No dysphagia 2015 Ears/Nose/Throat/Neck No headache 2015 Ears/Nose/Throat/Neck hearing loss 2015 Ears/Nose/Throat/Neck No nasal allergies 11/07/2015 Ears/Nose/Throat/Neck No sore throat Ears/Nose/Throat/Neck No postnasal drip 11/07/2015 Ears/Nose/Throat/Neck No sinus congestion 11/07/2015 Cardiovascular No chest pain/pressure Cardiovascular No dyspnea 11/07/2015 Cardiovascular No edema 11/07/2015 Cardiovascular No exercise intolerance Cardiovascular No fatigue 11/07/2015 Cardiovascular No near-syncope/dizziness 11/07/2015 Respiratory No chest tightness 2015 Respiratory cigarette smoking 11/07/2015 Respiratory No cough 11/07/2015 Respiratory No dyspnea 11/07/2015 Respiratory No pedal edema 11/07/2015 Respiratory No snoring 11/07/2015 Respiratory No wheezing 11/07/2015 Gastrointestinal No hemorrhoids 2015 Gastrointestinal No abdominal pain 2015 Gastrointestinal No constipation 2015 Gastrointestinal No diarrhea 11/07/2015 Gastrointestinal No gastroesophageal reflux 11/07/2015 Gastrointestinal No melena 11/07/2015 Gastrointestinal No nausea 11/07/2015 Gastrointestinal No vomiting 11/07/2015 Genitourinary/Nephrology No dysuria 11/06 Genitourinary/Nephrology No nocturia Genitourinary/Nephrology No urinary incontinence 11/07/2015 Musculoskeletal No stiffness 11/07/2015 Musculoskeletal No swelling 11/07/2015 Musculoskeletal No muscle weakness 2015 Musculoskeletal No myalgias 11/07/2015 Dermatologic No rash 11/07/2015 Dermatologic No scar 11/07/2015 Neurologic No dizziness 11/07/2015 Neurologic No headache 11/07/2015 Neurologic No neck pain 11/07/2015 Neurologic No syncope 11/07/2015 Psychiatric No anxiety 11/07/2015 Psychiatric No depression 11/07/2015 Constitutional weight loss 11/07/2015 Ears/Nose/Throat/Neck tinnitus 2015 Constitutional No recent illness 2014 Constitutional No chills 04/19/2015 Constitutional No fatigue 04/19/2015 Constitutional No fever 04/19/2015 Constitutional No insomnia 04/19/2015 Constitutional No malaise 04/19/2015 Eyes No blindness 04/19/2015 Eyes No vision change 04/19/2015 Ears/Nose/Throat/Neck No dental pain 05/2014 Ears/Nose/Throat/Neck No dizziness 2014 Ears/Nose/Throat/Neck No dysphagia 2014 Ears/Nose/Throat/Neck No headache 2014 Ears/Nose/Throat/Neck hearing loss 2014 Ears/Nose/Throat/Neck No nasal allergies 04/19/2015 Ears/Nose/Throat/Neck No sore throat 05/2014 Ears/Nose/Throat/Neck No postnasal drip 04/19/2015 Ears/Nose/Throat/Neck No sinus congestion 04/19/2015 Cardiovascular No chest pain/pressure 05/2014 Cardiovascular No dyspnea 04/19/2015 Cardiovascular No edema 04/19/2015 Cardiovascular No exercise intolerance Cardiovascular No fatigue 04/19/2015 Cardiovascular No near-syncope/dizziness 04/19/2015 Respiratory No chest tightness 2014 Respiratory cigarette smoking 04/19/2015 Respiratory No cough 04/19/2015 Respiratory No dyspnea 04/19/2015 Respiratory No pedal edema 04/19/2015 Respiratory No snoring 04/19/2015 Respiratory No wheezing 04/19/2015 Gastrointestinal No hemorrhoids 2014 Gastrointestinal No abdominal pain 2014 Gastrointestinal No constipation 2014 Gastrointestinal No diarrhea 04/19/2015 Gastrointestinal No gastroesophageal reflux 04/19/2015 Gastrointestinal No melena 04/19/2015 Gastrointestinal No nausea 04/19/2015 Gastrointestinal No vomiting 04/19/2015 Genitourinary/Nephrology No dysuria 04/19 Genitourinary/Nephrology No nocturia 05/2014 Genitourinary/Nephrology No urinary incontinence 04/19/2015 Musculoskeletal No stiffness 04/19/2015 Musculoskeletal No swelling 04/19/2015 Musculoskeletal No muscle weakness 2014 Musculoskeletal No myalgias 04/19/2015 Dermatologic No rash 04/19/2015 Dermatologic No scar 04/19/2015 Neurologic No dizziness 04/19/2015 Neurologic No headache 04/19/2015 Neurologic No neck pain 04/19/2015 Neurologic No syncope 04/19/2015 Psychiatric No anxiety 04/19/2015 Psychiatric No depression 04/19/2015 Constitutional recent illness 03/22/2015 Constitutional No anorexia 03/22/2015 Constitutional No night sweats 2014 Constitutional No chills 03/22/2015 Constitutional No diaphoresis 03/22/2015 Constitutional No fatigue 03/22/2015 Constitutional No fever 03/22/2015 Constitutional No insomnia 03/22/2015 Constitutional No malaise 03/22/2015 Constitutional No weight loss 03/22/2015 Constitutional No weight gain 03/22/2015 Eyes No eye discharge 03/22/2015 Eyes No eye erythema 03/22/2015 Ears/Nose/Throat/Neck No dizziness 2014 Ears/Nose/Throat/Neck No headache 2014 Ears/Nose/Throat/Neck nasal allergies 07/2014 Ears/Nose/Throat/Neck No nasal discharge 03/22/2015 Ears/Nose/Throat/Neck otalgia 03/22/2015 Ears/Nose/Throat/Neck sinus congestion Ears/Nose/Throat/Neck No sore throat 07/2014 Cardiovascular No chest pain/pressure 07/2014 Respiratory No productive sputum 2014 Respiratory No chest congestion 2014 Respiratory cough 03/22/2015 Respiratory cigarette smoking 03/22/2015 Gastrointestinal No abdominal pain 2014 Gastrointestinal No constipation 2014 Gastrointestinal No diarrhea 03/22/2015 Genitourinary/Nephrology No dysuria 03/22 Musculoskeletal No joint complaint 2014 Dermatologic No sores 03/22/2015 Dermatologic No rash 03/22/2015 Neurologic No alteration of consciousness 03/22/2015 Constitutional recent illness 04/13/2014 Constitutional fatigue 04/13/2014 Constitutional chills 04/13/2014 Constitutional diaphoresis 04/13/2014 Constitutional night sweats 04/13/2014 Constitutional anorexia 04/13/2014 Constitutional No insomnia 04/13/2014 Constitutional No malaise 04/13/2014 Constitutional fever 04/13/2014 Eyes No eye erythema 04/13/2014 Eyes No eye discharge 04/13/2014 Cardiovascular No chest pain/pressure Gastrointestinal No abdominal pain 2013 Gastrointestinal No constipation 2013 Gastrointestinal No diarrhea 04/13/2014 Genitourinary/Nephrology No dysuria 04/13 Musculoskeletal No joint complaint 2013 Dermatologic No rash 04/13/2014 Dermatologic No sores 04/13/2014 Neurologic No alteration of consciousness 04/13/2014 Constitutional No recent illness 2013 Constitutional No insomnia 03/29/2014 Constitutional No fatigue 03/29/2014 Cardiovascular No chest pain/pressure 02/2014 Cardiovascular No dyspnea 03/29/2014 Cardiovascular No edema 03/29/2014 Respiratory No chest congestion 2013 Respiratory No cough 03/29/2014 Gastrointestinal No constipation 2013 Gastrointestinal No diarrhea 03/29/2014 Musculoskeletal back pain 03/29/2014 Musculoskeletal shoulder pain 03/29/2014 Ears/Nose/Throat/Neck No dizziness 2013 Genitourinary/Nephrology No dysuria 03/29 Gastrointestinal No vomiting 03/29/2014 Gastrointestinal No nausea 03/29/2014 Constitutional No recent illness 2013 Constitutional No anorexia 09/10/2013 Constitutional No night sweats 2013 Constitutional No chills 09/10/2013 Constitutional No diaphoresis 09/10/2013 Constitutional No fatigue 09/10/2013 Constitutional No fever 09/10/2013 Constitutional No insomnia 09/10/2013 Constitutional No malaise 09/10/2013 Constitutional No weight loss 09/10/2013 Constitutional No weight gain 09/10/2013 Eyes No eye discharge 09/10/2013 Eyes No eye erythema 09/10/2013 Ears/Nose/Throat/Neck No dizziness 2013 Ears/Nose/Throat/Neck No headache 2013 Cardiovascular No chest pain/pressure Respiratory No productive sputum 2013 Respiratory No chest congestion 2013 Respiratory No cough 09/10/2013 Gastrointestinal No abdominal pain 2013 Gastrointestinal No constipation 2013 Gastrointestinal No diarrhea 09/10/2013 Genitourinary/Nephrology No dysuria 09/10 Musculoskeletal No joint complaint 2013 Neurologic No alteration of consciousness 09/10/2013 Constitutional No recent illness 2012 Constitutional No chills 04/20/2013 Constitutional No fatigue 04/20/2013 Constitutional No fever 04/20/2013 Constitutional No insomnia 04/20/2013 Constitutional No malaise 04/20/2013 Eyes No blindness 04/20/2013 Eyes No vision change 04/20/2013 Ears/Nose/Throat/Neck No dental pain 06/2012 Ears/Nose/Throat/Neck No dizziness 2012 Ears/Nose/Throat/Neck No dysphagia 2012 Ears/Nose/Throat/Neck No headache 2012 Ears/Nose/Throat/Neck No hearing loss 06/2012 Ears/Nose/Throat/Neck No nasal allergies 04/20/2013 Ears/Nose/Throat/Neck No sore throat 06/2012 Ears/Nose/Throat/Neck No postnasal drip 04/20/2013 Ears/Nose/Throat/Neck No sinus congestion 04/20/2013 Cardiovascular No chest pain/pressure 06/2012 Cardiovascular No dyspnea 04/20/2013 Cardiovascular No edema 04/20/2013 Cardiovascular No exercise intolerance Cardiovascular No fatigue 04/20/2013 Cardiovascular No near-syncope/dizziness 04/20/2013 Respiratory No chest tightness 2012 Respiratory cigarette smoking 04/20/2013 Respiratory No cough 04/20/2013 Respiratory No dyspnea 04/20/2013 Respiratory No pedal edema 04/20/2013 Respiratory No snoring 04/20/2013 Respiratory No wheezing 04/20/2013 Psychiatric No anxiety 04/20/2013 Psychiatric No depression 04/20/2013 Neurologic No dizziness 04/20/2013 Neurologic No headache 04/20/2013 Neurologic No neck pain 04/20/2013 Neurologic No syncope 04/20/2013 Dermatologic No rash 04/20/2013 Dermatologic No scar 04/20/2013 Musculoskeletal No stiffness 04/20/2013 Musculoskeletal No swelling 04/20/2013 Musculoskeletal No muscle weakness 2012 Musculoskeletal No myalgias 04/20/2013 Genitourinary/Nephrology No dysuria 04/20 Genitourinary/Nephrology No nocturia 06/2012 Genitourinary/Nephrology No urinary incontinence 04/20/2013 Gastrointestinal No hemorrhoids 2012 Gastrointestinal No abdominal pain 2012 Gastrointestinal No constipation 2012 Gastrointestinal No diarrhea 04/20/2013 Gastrointestinal No gastroesophageal reflux 04/20/2013 Gastrointestinal No melena 04/20/2013 Gastrointestinal No nausea 04/20/2013 Gastrointestinal No vomiting 04/20/2013 Physical Exam Exam Name System Name Item Name Status Result Effective Dates Notes Full Exam - ENT Constitutional general appearance Overall: well nourished 06/02/2018 None Full Exam - ENT Constitutional general appearance Overall: well developed 06/02/2018 None Full Exam - ENT Constitutional general appearance Overall: in no acute distress 06/02/2018 None Full Exam - ENT Ears/Nose/Throat otoscopic exam Overall: external auditory canals normal 06/02/2018 None Full Exam - ENT Ears/Nose/Throat otoscopic exam Left tympanic membrane: air -fluid level 06/02/2018 None Full Exam - ENT Ears/Nose/Throat otoscopic exam Right tympanic membrane: air-fluid level 06/02/2018 None Full Exam - ENT Ears/Nose/Throat lips/ teeth/gingiva Overall: benign lips 06/02/2018 None Full Exam - ENT Ears/Nose/Throat oropharynx Overall: oral mucosa clear 06/02/2018 None Full Exam - ENT Ears/Nose/Throat oropharynx Posterior Pharynx: clear post nasal drainage 06/02/2018 None Full Exam - ENT Ears/Nose/Throat oropharynx Posterior Pharynx: erythema 06/02/2018 None Full Exam - ENT Respiratory inspection Overall: no retractions 06/02/2018 None Full Exam - ENT Respiratory inspection Overall: normal rate None Full Exam - ENT Cardiovascular auscultation of heart Rate: normal rate 06/02/2018 None Full Exam - ENT Cardiovascular auscultation of heart Rhythm: regular rhythm 06/02/2018 None Full Exam - ENT Lymphatic palpation of lymph nodes Overall: anterior cervical chain benign 06/02/2018 None Full Exam - ENT Lymphatic palpation of lymph nodes Overall: posterior cervical chain benign 06/02/2018 None Full Exam - ENT Neurologic mood and affect Overall: normal mood 06/02/2018 None Full Exam - ENT Neurologic mood and affect Overall: normal affect 06/02/2018 None Full Exam - ENT Neurologic orientation Overall: oriented to person, place and time 06/02/2018 None Full Exam - ENT Respiratory auscultation Diffuse: diminished None Full Exam - ENT Respiratory auscultation Left lower lung field: crackles 06/02/2018 None Full Exam - ENT Respiratory auscultation Diffuse: expiratory wheezes 06/02/2018 None Full Exam - General 1994 Constitutional general appearance Development: well developed 04/15/2018 None Full Exam - General 1994 Constitutional general appearance Development: appears stated age 1104/15/2018 None Full Exam - General 1994 Constitutional general appearance Development: appears older than stated age 1104/15/2018 None Full Exam - General 1994 Constitutional general appearance Hygiene/Attention to Grooming: good hygiene 04/15/2018 None Full Exam - General 1994 Eyes conjunctiva /eyelids Overall: conjunctiva clear 04/15/2018 None Full Exam - General 1994 Eyes conjunctiva /eyelids Overall: cornea clear 04/15/2018 None Full Exam - General 1994 Eyes conjunctiva /eyelids Overall: eyelids normal 04/15/2018 None Full Exam - General 1994 Eyes pupils and irises Overall: pupils equal, round, reactive to light and accomodation 04/15/2018 None Full Exam - General 1994 Ears/Nose/Throat otoscopic exam Overall: external auditory canals clear 04/15/2018 None Full Exam - General 1994 Ears/Nose/Throat otoscopic exam Overall: tympanic membranes clear 04/15/2018 None Full Exam - General 1994 Ears/Nose/Throat lips/teeth/gingiva Overall: benign lips 04/15/2018 None Full Exam - General 1994 Ears/Nose/Throat lips/teeth/gingiva Overall: normal dentition 04/15/2018 None Full Exam - General 1994 Ears/Nose/Throat oral cavity/pharynx/larynx Overall: oral mucosa clear 04/15/2018 None Full Exam - General 1995 Ears/Nose/Throat oral cavity/pharynx/larynx Overall: oropharyngeal mucosa clear 04/15/2018 None Full Exam - General 1995 Ears/Nose/Throat oral cavity/pharynx/larynx Overall: hypopharynx benign 04/15/2018 None Full Exam - General 1994 Ears/Nose/Throat oral cavity/pharynx/larynx Overall: no masses 04/15/2018 None Full Exam - General 1994 Respiratory auscultation Upper lung field: expiratory wheezes 04/15/2018 None Full Exam - General 1994 Respiratory auscultation Lower lung field: expiratory wheezes 04/15/2018 None Full Exam - General 1994 Respiratory respiratory effort/rhythm Overall: no retractions 04/15/2018 None Full Exam - General 1994 Respiratory respiratory effort/rhythm Overall: normal rate 04/15/2018 None Full Exam - General 1994 Cardiovascular extremities Overall: no clubbing 04/15/2018 None Full Exam - General 1994 Cardiovascular auscultation of heart Overall: regular rate 04/15/2018 None Full Exam - General 1994 Cardiovascular auscultation of heart Overall: normal heart sounds 04/15/2018 None Full Exam - General 1994 Abdomen abdominal exam Overall: no tenderness 04/15/2018 None Full Exam - General 1994 Abdomen abdominal exam Overall: normal bowel sounds 04/15/2018 None Full Exam - General 1994 Lymphatic neck nodes Anterior cervical chain: a normal exam 04/15/2018 None Full Exam - General 1994 Musculoskeletal spine, ribs and pelvis Overall: good posture 04/15/2018 None Full Exam - General 1994 Integument inspection of skin Overall: few scattered moles, no gross abnormalities 04/15/2018 None Full Exam - General 1994 Neurologic deep tendon reflexes Overall: deep tendon reflexes intact 04/15/2018 None Full Exam - General 1994 Neurologic cranial nerves Overall: crainial nerves 2 - 12 grossly intact 04/15/2018 None Full Exam - General 1994 Psychiatric orientation/consciousness Overall: oriented to person, place and time 04/15/2018 None Full Exam - General 1994 Psychiatric mood and affect Overall: normal mood and affect 04/15/2018 None Full Exam - ENT Constitutional general appearance Overall: well nourished 03/25/2018 None Full Exam - ENT Constitutional general appearance Overall: well developed 03/25/2018 None Full Exam - ENT Constitutional general appearance Overall: in no acute distress 03/25/2018 None Full Exam - ENT Ears/Nose/Throat otoscopic exam Overall: external auditory canals normal 03/25/2018 None Full Exam - ENT Ears/Nose/Throat otoscopic exam Left tympanic membrane: air -fluid level 03/25/2018 None Full Exam - ENT Ears/Nose/Throat otoscopic exam Right tympanic membrane: air-fluid level 03/25/2018 None Full Exam - ENT Ears/Nose/Throat lips/ teeth/gingiva Overall: benign lips 03/25/2018 None Full Exam - ENT Ears/Nose/Throat oropharynx Overall: oral mucosa clear 03/25/2018 None Full Exam - ENT Ears/Nose/Throat oropharynx Posterior Pharynx: clear post nasal drainage 03/25/2018 None Full Exam - ENT Ears/Nose/Throat oropharynx Posterior Pharynx: erythema 03/25/2018 None Full Exam - ENT Respiratory inspection Overall: no retractions 03/25/2018 None Full Exam - ENT Respiratory inspection Overall: normal rate 10/2017 None Full Exam - ENT Respiratory auscultation Overall: breath sounds clear bilaterally 03/25/2018 None Full Exam - ENT Respiratory auscultation Diffuse: diminished None Full Exam - ENT Cardiovascular auscultation of heart Rate: normal rate 03/25/2018 None Full Exam - ENT Cardiovascular auscultation of heart Rhythm: regular rhythm 03/25/2018 None Full Exam - ENT Lymphatic palpation of lymph nodes Overall: anterior cervical chain benign 03/25/2018 None Full Exam - ENT Lymphatic palpation of lymph nodes Overall: posterior cervical chain benign 03/25/2018 None Full Exam - ENT Neurologic mood and affect Overall: normal mood 03/25/2018 None Full Exam - ENT Neurologic mood and affect Overall: normal affect 03/25/2018 None Full Exam - ENT Neurologic orientation Overall: oriented to person, place and time 03/25/2018 None Full Exam - ENT Integument inspection of skin Overall: no rash, lesions 03/25/2018 None Full Exam - ENT Face and Head palpation Overall: no sinus tenderness 03/25/2018 None Full Exam - ENT Constitutional general appearance Overall: well nourished 06/24/2017 None Full Exam - ENT Constitutional general appearance Overall: well developed 06/24/2017 None Full Exam - ENT Constitutional general appearance Overall: in no acute distress 06/24/2017 None Full Exam - ENT Ears/Nose/Throat otoscopic exam Overall: external auditory canals normal 06/24/2017 None Full Exam - ENT Ears/Nose/Throat otoscopic exam Left tympanic membrane: air -fluid level 06/24/2017 None Full Exam - ENT Ears/Nose/Throat otoscopic exam Right tympanic membrane: air-fluid level 06/24/2017 None Full Exam - ENT Ears/Nose/Throat lips/ teeth/gingiva Overall: benign lips 06/24/2017 None Full Exam - ENT Ears/Nose/Throat oropharynx Overall: oral mucosa clear 06/24/2017 None Full Exam - ENT Ears/Nose/Throat oropharynx Posterior Pharynx: clear post nasal drainage 06/24/2017 None Full Exam - ENT Ears/Nose/Throat oropharynx Posterior Pharynx: erythema 06/24/2017 None Full Exam - ENT Respiratory inspection Overall: no retractions 06/24/2017 None Full Exam - ENT Respiratory inspection Overall: normal rate 09/2017 None Full Exam - ENT Respiratory auscultation Overall: breath sounds clear bilaterally 06/24/2017 None Full Exam - ENT Respiratory auscultation Diffuse: diminished None Full Exam - ENT Cardiovascular auscultation of heart Rate: normal rate 06/24/2017 None Full Exam - ENT Cardiovascular auscultation of heart Rhythm: regular rhythm 06/24/2017 None Full Exam - ENT Lymphatic palpation of lymph nodes Overall: anterior cervical chain benign 06/24/2017 None Full Exam - ENT Lymphatic palpation of lymph nodes Overall: posterior cervical chain benign 06/24/2017 None Full Exam - ENT Neurologic mood and affect Overall: normal mood 06/24/2017 None Full Exam - ENT Neurologic mood and affect Overall: normal affect 06/24/2017 None Full Exam - ENT Neurologic orientation Overall: oriented to person, place and time 06/24/2017 None Full Exam - ENT Constitutional general appearance Overall: well nourished 02/15/2017 None Full Exam - ENT Constitutional general appearance Overall: well developed 02/15/2017 None Full Exam - ENT Constitutional general appearance Overall: in no acute distress 02/15/2017 None Full Exam - ENT Neurologic orientation Overall: oriented to person, place and time 02/15/2017 None Full Exam - ENT Lymphatic palpation of lymph nodes Left anterior cervical chain: shotty 02/15/2017 None Full Exam - ENT Integument inspection of skin Overall: no rash, lesions 02/15/2017 None Full Exam - ENT Cardiovascular auscultation of heart Overall: regular rate 02/15/2017 None Full Exam - ENT Cardiovascular auscultation of heart Overall: normal heart sounds 02/15/2017 None Full Exam - ENT Respiratory inspection Overall: no retractions 02/15/2017 None Full Exam - ENT Respiratory inspection Overall: normal rate None Full Exam - ENT Respiratory auscultation Overall: breath sounds clear bilaterally 02/15/2017 None Full Exam - ENT Ears/Nose/Throat lips/ teeth/gingiva Teeth: partially edentulous 02/15/2017 None Full Exam - ENT Ears/Nose/Throat oropharynx Overall: oral mucosa clear 02/15/2017 None Full Exam - ENT Face and Head palpation Overall: no sinus tenderness 02/15/2017 None Full Exam - General 1994 Constitutional general appearance Development: well developed 09/03/2016 None Full Exam - General 1994 Constitutional general appearance Development: appears stated age 0409/03/2016 None Full Exam - General 1994 Constitutional general appearance Development: appears older than stated age 0409/03/2016 None Full Exam - General 1994 Constitutional general appearance Hygiene/Attention to Grooming: good hygiene 09/03/2016 None Full Exam - General 1994 Eyes conjunctiva /eyelids Overall: conjunctiva clear 09/03/2016 None Full Exam - General 1994 Eyes conjunctiva /eyelids Overall: cornea clear 09/03/2016 None Full Exam - General 1994 Eyes conjunctiva /eyelids Overall: eyelids normal 09/03/2016 None Full Exam - General 1994 Eyes pupils and irises Overall: pupils equal, round, reactive to light and accomodation 09/03/2016 None Full Exam - General 1994 Ears/Nose/Throat otoscopic exam Overall: external auditory canals clear 09/03/2016 None Full Exam - General 1994 Ears/Nose/Throat otoscopic exam Overall: tympanic membranes clear 09/03/2016 None Full Exam - General 1994 Ears/Nose/Throat lips/teeth/gingiva Overall: benign lips 09/03/2016 None Full Exam - General 1994 Ears/Nose/Throat lips/teeth/gingiva Overall: normal dentition 09/03/2016 None Full Exam - General 1994 Ears/Nose/Throat oral cavity/pharynx/larynx Overall: oral mucosa clear 09/03/2016 None Full Exam - General 1994 Ears/Nose/Throat oral cavity/pharynx/larynx Overall: oropharyngeal mucosa clear 09/03/2016 None Full Exam - General 1994 Ears/Nose/Throat oral cavity/pharynx/larynx Overall: hypopharynx benign 09/03/2016 None Full Exam - General 1994 Ears/Nose/Throat oral cavity/pharynx/larynx Overall: no masses 09/03/2016 None Full Exam - General 1994 Respiratory auscultation Upper lung field: expiratory wheezes 09/03/2016 None Full Exam - General 1994 Respiratory auscultation Lower lung field: expiratory wheezes 09/03/2016 None Full Exam - General 1994 Respiratory respiratory effort/rhythm Overall: no retractions 09/03/2016 None Full Exam - General 1994 Respiratory respiratory effort/rhythm Overall: normal rate 09/03/2016 None Full Exam - General 1994 Cardiovascular extremities Overall: no clubbing 09/03/2016 None Full Exam - General 1994 Cardiovascular auscultation of heart Overall: regular rate 09/03/2016 None Full Exam - General 1994 Cardiovascular auscultation of heart Overall: normal heart sounds 09/03/2016 None Full Exam - General 1994 Abdomen abdominal exam Overall: no tenderness 09/03/2016 None Full Exam - General 1994 Abdomen abdominal exam Overall: normal bowel sounds 09/03/2016 None Full Exam - General 1994 Lymphatic neck nodes Anterior cervical chain: a normal exam 09/03/2016 None Full Exam - General 1994 Lymphatic neck nodes Anterior cervical chain: Right number of palpable nodes: 2 09/03/2016 None Full Exam - General 1994 Musculoskeletal spine, ribs and pelvis Overall: good posture 09/03/2016 None Full Exam - General 1994 Neurologic deep tendon reflexes Overall: deep tendon reflexes intact 09/03/2016 None Full Exam - General 1994 Neurologic cranial nerves Overall: crainial nerves 2 - 12 grossly intact 09/03/2016 None Full Exam - General 1994 Psychiatric orientation/consciousness Overall: oriented to person, place and time 09/03/2016 None Full Exam - General 1994 Psychiatric mood and affect Overall: normal mood and affect 09/03/2016 None Full Exam - ENT Constitutional general appearance Overall: well nourished 08/29/2016 None Full Exam - ENT Constitutional general appearance Overall: well developed 08/29/2016 None Full Exam - ENT Constitutional general appearance Overall: in no acute distress 08/29/2016 None Full Exam - ENT Ears/Nose/Throat otoscopic exam Overall: external auditory canals normal 08/29/2016 None Full Exam - ENT Ears/Nose/Throat otoscopic exam Left tympanic membrane: air -fluid level 08/29/2016 None Full Exam - ENT Ears/Nose/Throat otoscopic exam Right tympanic membrane: air-fluid level 08/29/2016 None Full Exam - ENT Ears/Nose/Throat lips/ teeth/gingiva Overall: benign lips 08/29/2016 None Full Exam - ENT Ears/Nose/Throat oropharynx Overall: oral mucosa clear 08/29/2016 None Full Exam - ENT Ears/Nose/Throat oropharynx Posterior Pharynx: clear post nasal drainage 08/29/2016 None Full Exam - ENT Ears/Nose/Throat oropharynx Posterior Pharynx: erythema 08/29/2016 None Full Exam - ENT Respiratory inspection Overall: no retractions 08/29/2016 None Full Exam - ENT Respiratory inspection Overall: normal rate 04/2017 None Full Exam - ENT Respiratory auscultation Overall: breath sounds clear bilaterally 08/29/2016 None Full Exam - ENT Cardiovascular auscultation of heart Rate: normal rate 08/29/2016 None Full Exam - ENT Cardiovascular auscultation of heart Rhythm: regular rhythm 08/29/2016 None Full Exam - ENT Lymphatic palpation of lymph nodes Overall: anterior cervical chain benign 08/29/2016 None Full Exam - ENT Lymphatic palpation of lymph nodes Overall: posterior cervical chain benign 08/29/2016 None Full Exam - ENT Neurologic mood and affect Overall: normal mood 08/29/2016 None Full Exam - ENT Neurologic mood and affect Overall: normal affect 08/29/2016 None Full Exam - ENT Neurologic orientation Overall: oriented to person, place and time 08/29/2016 None Full Exam - ENT Respiratory auscultation Diffuse: diminished None Full Exam - ENT Constitutional general appearance Overall: well nourished 05/07/2016 None Full Exam - ENT Constitutional general appearance Overall: well developed 05/07/2016 None Full Exam - ENT Constitutional general appearance Overall: in no acute distress 05/07/2016 None Full Exam - ENT Ears/Nose/Throat otoscopic exam Overall: external auditory canals normal 05/07/2016 None Full Exam - ENT Ears/Nose/Throat otoscopic exam Overall: tympanic membranes normal 05/07/2016 None Full Exam - ENT Ears/Nose/Throat oropharynx Overall: oral mucosa clear 05/07/2016 None Full Exam - ENT Respiratory inspection Overall: no retractions 05/07/2016 None Full Exam - ENT Respiratory inspection Overall: normal rate None Full Exam - ENT Respiratory auscultation Diffuse: diminished None Full Exam - ENT Cardiovascular auscultation of heart Overall: regular rate 05/07/2016 None Full Exam - ENT Cardiovascular auscultation of heart Overall: normal heart sounds 05/07/2016 None Full Exam - ENT Integument inspection of skin Overall: no rash, lesions 05/07/2016 None Full Exam - ENT Neurologic orientation Overall: oriented to person, place and time 05/07/2016 None Full Exam - ENT Lymphatic palpation of lymph nodes Left anterior cervical chain: number of palpable nodes: 1 05/07/2016 None Full Exam - ENT Lymphatic palpation of lymph nodes Left anterior cervical chain: tender 05/07/2016 None Full Exam - General 1994 Constitutional general appearance Development: well developed 11/07/2015 None Full Exam - General 1994 Constitutional general appearance Development: appears stated age 0611/07/2015 None Full Exam - General 1994 Constitutional general appearance Development: appears older than stated age 0611/07/2015 None Full Exam - General 1994 Constitutional general appearance Hygiene/Attention to Grooming: good hygiene 11/07/2015 None Full Exam - General 1994 Eyes conjunctiva /eyelids Overall: conjunctiva clear 11/07/2015 None Full Exam - General 1994 Eyes conjunctiva /eyelids Overall: cornea clear 11/07/2015 None Full Exam - General 1994 Eyes conjunctiva /eyelids Overall: eyelids normal 11/07/2015 None Full Exam - General 1994 Eyes pupils and irises Overall: pupils equal, round, reactive to light and accomodation 11/07/2015 None Full Exam - General 1994 Ears/Nose/Throat otoscopic exam Overall: external auditory canals clear 11/07/2015 None Full Exam - General 1994 Ears/Nose/Throat otoscopic exam Overall: tympanic membranes clear 11/07/2015 None Full Exam - General 1994 Ears/Nose/Throat lips/teeth/gingiva Overall: benign lips 11/07/2015 None Full Exam - General 1994 Ears/Nose/Throat lips/teeth/gingiva Overall: normal dentition 11/07/2015 None Full Exam - General 1994 Ears/Nose/Throat oral cavity/pharynx/larynx Overall: oral mucosa clear 11/07/2015 None Full Exam - General 1994 Ears/Nose/Throat oral cavity/pharynx/larynx Overall: oropharyngeal mucosa clear 11/07/2015 None Full Exam - General 1994 Ears/Nose/Throat oral cavity/pharynx/larynx Overall: hypopharynx benign 11/07/2015 None Full Exam - General 1994 Ears/Nose/Throat oral cavity/pharynx/larynx Overall: no masses 11/07/2015 None Full Exam - General 1994 Respiratory auscultation Upper lung field: expiratory wheezes 11/07/2015 None Full Exam - General 1994 Respiratory auscultation Lower lung field: expiratory wheezes 11/07/2015 None Full Exam - General 1994 Respiratory respiratory effort/rhythm Overall: no retractions 11/07/2015 None Full Exam - General 1994 Respiratory respiratory effort/rhythm Overall: normal rate 11/07/2015 None Full Exam - General 1994 Cardiovascular extremities Overall: no clubbing 11/07/2015 None Full Exam - General 1994 Cardiovascular auscultation of heart Overall: regular rate 11/07/2015 None Full Exam - General 1994 Cardiovascular auscultation of heart Overall: normal heart sounds 11/07/2015 None Full Exam - General 1994 Abdomen abdominal exam Overall: no tenderness 11/07/2015 None Full Exam - General 1994 Abdomen abdominal exam Overall: normal bowel sounds 11/07/2015 None Full Exam - General 1994 Lymphatic neck nodes Anterior cervical chain: a normal exam 11/07/2015 None Full Exam - General 1994 Musculoskeletal spine, ribs and pelvis Overall: good posture 11/07/2015 None Full Exam - General 1994 Integument inspection of skin Overall: few scattered moles, no gross abnormalities 11/07/2015 None Full Exam - General 1994 Neurologic deep tendon reflexes Overall: deep tendon reflexes intact 11/07/2015 None Full Exam - General 1994 Neurologic cranial nerves Overall: crainial nerves 2 - 12 grossly intact 11/07/2015 None Full Exam - General 1994 Psychiatric orientation/consciousness Overall: oriented to person, place and time 11/07/2015 None Full Exam - General 1994 Psychiatric mood and affect Overall: normal mood and affect 11/07/2015 None Full Exam - General 1994 Constitutional general appearance Development: well developed 04/19/2015 None Full Exam - General 1994 Constitutional general appearance Development: appears stated age 1204/19/2015 None Full Exam - General 1994 Constitutional general appearance Development: appears older than stated age 1204/19/2015 None Full Exam - General 1994 Constitutional general appearance Hygiene/Attention to Grooming: good hygiene 04/19/2015 None Full Exam - General 1994 Eyes conjunctiva /eyelids Overall: conjunctiva clear 04/19/2015 None Full Exam - General 1994 Eyes conjunctiva /eyelids Overall: cornea clear 04/19/2015 None Full Exam - General 1994 Eyes conjunctiva /eyelids Overall: eyelids normal 04/19/2015 None Full Exam - General 1994 Eyes pupils and irises Overall: pupils equal, round, reactive to light and accomodation 04/19/2015 None Full Exam - General 1994 Ears/Nose/Throat otoscopic exam Overall: external auditory canals clear 04/19/2015 None Full Exam - General 1994 Ears/Nose/Throat otoscopic exam Overall: tympanic membranes clear 04/19/2015 None Full Exam - General 1994 Ears/Nose/Throat lips/teeth/gingiva Overall: benign lips 04/19/2015 None Full Exam - General 1994 Ears/Nose/Throat lips/teeth/gingiva Overall: normal dentition 04/19/2015 None Full Exam - General 1994 Ears/Nose/Throat oral cavity/pharynx/larynx Overall: oral mucosa clear 04/19/2015 None Full Exam - General 1994 Ears/Nose/Throat oral cavity/pharynx/larynx Overall: oropharyngeal mucosa clear 04/19/2015 None Full Exam - General 1994 Ears/Nose/Throat oral cavity/pharynx/larynx Overall: hypopharynx benign 04/19/2015 None Full Exam - General 1994 Ears/Nose/Throat oral cavity/pharynx/larynx Overall: no masses 04/19/2015 None Full Exam - General 1994 Respiratory auscultation Upper lung field: expiratory wheezes 04/19/2015 None Full Exam - General 1994 Respiratory auscultation Lower lung field: expiratory wheezes 04/19/2015 None Full Exam - General 1994 Respiratory respiratory effort/rhythm Overall: no retractions 04/19/2015 None Full Exam - General 1994 Respiratory respiratory effort/rhythm Overall: normal rate 04/19/2015 None Full Exam - General 1994 Cardiovascular extremities Overall: no clubbing 04/19/2015 None Full Exam - General 1994 Cardiovascular auscultation of heart Overall: regular rate 04/19/2015 None Full Exam - General 1994 Cardiovascular auscultation of heart Overall: normal heart sounds 04/19/2015 None Full Exam - General 1994 Abdomen abdominal exam Overall: no tenderness 04/19/2015 None Full Exam - General 1994 Abdomen abdominal exam Overall: normal bowel sounds 04/19/2015 None Full Exam - General 1994 Lymphatic neck nodes Anterior cervical chain: a normal exam 04/19/2015 None Full Exam - General 1994 Musculoskeletal spine, ribs and pelvis Overall: good posture 04/19/2015 None Full Exam - General 1994 Integument inspection of skin Overall: few scattered moles, no gross abnormalities 04/19/2015 None Full Exam - General 1994 Neurologic deep tendon reflexes Overall: deep tendon reflexes intact 04/19/2015 None Full Exam - General 1994 Neurologic cranial nerves Overall: crainial nerves 2 - 12 grossly intact 04/19/2015 None Full Exam - General 1994 Psychiatric orientation/consciousness Overall: oriented to person, place and time 04/19/2015 None Full Exam - General 1994 Psychiatric mood and affect Overall: normal mood and affect 04/19/2015 None Full Exam - ENT Constitutional general appearance Overall: well nourished 03/22/2015 None Full Exam - ENT Constitutional general appearance Overall: well developed 03/22/2015 None Full Exam - ENT Constitutional general appearance Overall: in no acute distress 03/22/2015 None Full Exam - ENT Ears/Nose/Throat otoscopic exam Overall: tympanic membranes normal 03/22/2015 None Full Exam - ENT Ears/Nose/Throat oropharynx Overall: oral mucosa clear 03/22/2015 None Full Exam - ENT Respiratory inspection Overall: no retractions 03/22/2015 None Full Exam - ENT Respiratory inspection Overall: normal rate 07/2014 None Full Exam - ENT Respiratory auscultation Diffuse: diminished None Full Exam - ENT Cardiovascular auscultation of heart Overall: regular rate 03/22/2015 None Full Exam - ENT Cardiovascular auscultation of heart Overall: normal heart sounds 03/22/2015 None Full Exam - ENT Lymphatic palpation of lymph nodes Overall: shotty lymphadenopathy 03/22/2015 None Full Exam - ENT Integument inspection of skin Overall: no rash, lesions 03/22/2015 None Full Exam - ENT Neurologic orientation Overall: oriented to person, place and time 03/22/2015 None Full Exam - ENT Ears/Nose/Throat otoscopic exam Left external auditory canal: erythematous 03/22/2015 None Full Exam - ENT Ears/Nose/Throat otoscopic exam Right external auditory canal: erythematous 03/22/2015 None Full Exam - ENT Ears/Nose/Throat otoscopic exam Right external auditory canal: partial cerumen occlusion 03/22/2015 None Full Exam - ENT Constitutional general appearance Overall: well nourished 04/13/2014 None Full Exam - ENT Constitutional general appearance Overall: well developed 04/13/2014 None Full Exam - ENT Constitutional general appearance Overall: in no acute distress 04/13/2014 None Full Exam - ENT Neurologic orientation Overall: oriented to person, place and time 04/13/2014 None Full Exam - ENT Integument inspection of skin Overall: no rash, lesions 04/13/2014 None Full Exam - ENT Lymphatic palpation of lymph nodes Overall: shotty lymphadenopathy 04/13/2014 None Full Exam - ENT Cardiovascular auscultation of heart Overall: regular rate 04/13/2014 None Full Exam - ENT Cardiovascular auscultation of heart Overall: normal heart sounds 04/13/2014 None Full Exam - ENT Respiratory inspection Overall: no retractions 04/13/2014 None Full Exam - ENT Respiratory inspection Overall: normal rate None Full Exam - ENT Respiratory auscultation Diffuse: diminished None Full Exam - ENT Ears/Nose/Throat otoscopic exam Overall: tympanic membranes normal 04/13/2014 None Full Exam - ENT Ears/Nose/Throat otoscopic exam Overall: external auditory canals normal 04/13/2014 None Full Exam - ENT Ears/Nose/Throat oropharynx Overall: oral mucosa clear 04/13/2014 None Full Exam - General 1994 Constitutional general appearance Development: well developed 03/29/2014 None Full Exam - General 1994 Constitutional general appearance Development: appears stated age 1103/29/2014 None Full Exam - General 1994 Constitutional general appearance Development: appears older than stated age 1103/29/2014 None Full Exam - General 1994 Constitutional general appearance Hygiene/Attention to Grooming: good hygiene 03/29/2014 None Full Exam - General 1994 Eyes conjunctiva /eyelids Overall: conjunctiva clear 03/29/2014 None Full Exam - General 1994 Eyes conjunctiva /eyelids Overall: cornea clear 03/29/2014 None Full Exam - General 1994 Eyes conjunctiva /eyelids Overall: eyelids normal 03/29/2014 None Full Exam - General 1994 Eyes pupils and irises Overall: pupils equal, round, reactive to light and accomodation 03/29/2014 None Full Exam - General 1994 Respiratory auscultation Upper lung field: expiratory wheezes 03/29/2014 None Full Exam - General 1994 Respiratory auscultation Lower lung field: expiratory wheezes 03/29/2014 None Full Exam - General 1994 Respiratory respiratory effort/rhythm Overall: no retractions 03/29/2014 None Full Exam - General 1994 Respiratory respiratory effort/rhythm Overall: normal rate 03/29/2014 None Full Exam - General 1994 Cardiovascular extremities Overall: no clubbing 03/29/2014 None Full Exam - General 1994 Cardiovascular auscultation of heart Overall: regular rate 03/29/2014 None Full Exam - General 1994 Cardiovascular auscultation of heart Overall: normal heart sounds 03/29/2014 None Full Exam - General 1994 Musculoskeletal digits and nails Overall: no clubbing 03/29/2014 None Full Exam - General 1994 Musculoskeletal digits and nails Overall: digits benign 03/29/2014 None Full Exam - General 1994 Musculoskeletal spine, ribs and pelvis Overall: spine benign 03/29/2014 None Full Exam - General 1994 Musculoskeletal spine, ribs and pelvis Overall: good posture 03/29/2014 None Full Exam - General 1994 Psychiatric orientation/consciousness Overall: oriented to person, place and time 03/29/2014 None Full Exam - General 1994 Psychiatric mood and affect Overall: normal mood and affect 03/29/2014 None Full Exam - General 1994 Musculoskeletal spine, ribs and pelvis Sacroiliac joints: tender right sacroiliac joint 03/29/2014 lateral to right SI joint Full Exam - General 1994 Constitutional general appearance Overall: well developed 09/10/2013 None Full Exam - General 1994 Constitutional general appearance Overall: in no acute distress 09/10/2013 None Full Exam - General 1994 Constitutional general appearance Overall: well nourished 09/10/2013 None Full Exam - General 1994 Psychiatric orientation/consciousness Overall: oriented to person, place and time 09/10/2013 None Full Exam - General 1994 Integument inspection of skin Location: chest 09/10/2013 None Full Exam - General 1994 Integument inspection of skin Location: back 09/10/2013 None Full Exam - General 1994 Integument inspection of skin Pigmentation: erythematous 09/10/2013 None Full Exam - General 1994 Integument inspection of skin Dermatitis: erythema 09/10/2013 None Full Exam - General 1994 Integument inspection of skin Rash/Lesions: macule 09/10/2013 None Full Exam - General 1994 Integument inspection of skin Rash/Lesions: papule 09/10/2013 None Full Exam - General 1994 Constitutional general appearance Development: appears older than stated age 1204/20/2013 None Full Exam - General 1994 Constitutional general appearance Development: appears stated age 1204/20/2013 None Full Exam - General 1994 Constitutional general appearance Development: well developed 04/20/2013 None Full Exam - General 1994 Constitutional general appearance Hygiene/Attention to Grooming: good hygiene 04/20/2013 None Full Exam - General 1995 Eyes conjunctiva /eyelids Overall: conjunctiva clear 04/20/2013 None Full Exam - General 1995 Eyes conjunctiva /eyelids Overall: cornea clear 04/20/2013 None Full Exam - General 1995 Eyes conjunctiva /eyelids Overall: eyelids normal 04/20/2013 None Full Exam - General 1994 Eyes pupils and irises Overall: pupils equal, round, reactive to light and accomodation 04/20/2013 None Full Exam - General 1995 Ears/Nose/Throat otoscopic exam Overall: external auditory canals clear 04/20/2013 None Full Exam - General 1995 Ears/Nose/Throat otoscopic exam Overall: tympanic membranes clear 04/20/2013 None Full Exam - General 1995 Ears/Nose/Throat lips/teeth/gingiva Overall: benign lips 04/20/2013 None Full Exam - General 1995 Ears/Nose/Throat lips/teeth/gingiva Overall: normal dentition 04/20/2013 None Full Exam - General 1995 Ears/Nose/Throat oral cavity/pharynx/larynx Overall: hypopharynx benign 04/20/2013 None Full Exam - General 1995 Ears/Nose/Throat oral cavity/pharynx/larynx Overall: no masses 04/20/2013 None Full Exam - General 1995 Ears/Nose/Throat oral cavity/pharynx/larynx Overall: oral mucosa clear 04/20/2013 None Full Exam - General 1995 Ears/Nose/Throat oral cavity/pharynx/larynx Overall: oropharyngeal mucosa clear 04/20/2013 None Full Exam - General 1994 Respiratory respiratory effort/rhythm Overall: no retractions 04/20/2013 None Full Exam - General 1994 Respiratory respiratory effort/rhythm Overall: normal rate 04/20/2013 None Full Exam - General 1994 Cardiovascular extremities Overall: no clubbing 04/20/2013 None Full Exam - General 1994 Cardiovascular auscultation of heart Overall: normal heart sounds 04/20/2013 None Full Exam - General 1994 Cardiovascular auscultation of heart Overall: regular rate 04/20/2013 None Full Exam - General 1994 Abdomen abdominal exam Overall: no tenderness 04/20/2013 None Full Exam - General 1994 Abdomen abdominal exam Overall: normal bowel sounds 04/20/2013 None Full Exam - General 1994 Integument inspection of skin Overall: few scattered moles, no gross abnormalities 04/20/2013 None Full Exam - General 1995 Neurologic deep tendon reflexes Overall: deep tendon reflexes intact 04/20/2013 None Full Exam - General 1995 Neurologic cranial nerves Overall: crainial nerves 2 - 12 grossly intact 04/20/2013 None Full Exam - General 1995 Psychiatric orientation/consciousness Overall: oriented to person, place and time 04/20/2013 None Full Exam - General 1995 Psychiatric mood and affect Overall: normal mood and affect 04/20/2013 None Full Exam - General 1995 Musculoskeletal digits and nails Overall: digits benign 04/20/2013 None Full Exam - General 1995 Musculoskeletal digits and nails Overall: no clubbing 04/20/2013 None Full Exam - General 1995 Musculoskeletal head and neck Overall: cervical spine benign 04/20/2013 None Full Exam - General 1994 Musculoskeletal head and neck Overall: head atraumatic 04/20/2013 None Full Exam - General 1994 Musculoskeletal spine, ribs and pelvis Overall: good posture 04/20/2013 None Full Exam - General 1994 Musculoskeletal spine, ribs and pelvis Overall: sacroiliac joint benign 04/20/2013 None Full Exam - General 1994 Musculoskeletal spine, ribs and pelvis Overall: spine benign 04/20/2013 None Full Exam - General 1994 Musculoskeletal gait and station Overall: normal station 04/20/2013 None Full Exam - General 1994 Musculoskeletal gait and station Overall: normal gait 04/20/2013 None Full Exam - General 1994 Respiratory auscultation Upper lung field: expiratory wheezes 04/20/2013 None Full Exam - General 1994 Respiratory auscultation Lower lung field: expiratory wheezes 04/20/2013 None Full Exam - General 1994 Lymphatic neck nodes Anterior cervical chain: a normal exam 04/20/2013 None Full Exam - General 1994 Lymphatic neck nodes Anterior cervical chain: Right number of palpable nodes: 2 04/20/2013 None Procedures Procedure Codes Date TRIAMCINOLONE ACET INJ NOS CPT-4: J3301 06/02/2018 THER/PROPH/DIAG INJ SC/IM CPT-4: 47437 06/02/2018 ROCEPHIN, PER 250 MG CPT-4: J0696 06/02/2018 TRIAMCINOLONE ACET INJ NOS CPT-4: J3301 03/25/2018 TOBACCO-USE WINDOWS DESKTOP ENGINEER 3-[address]: 751515134 CPT-4: G0436 09/03/2016 TOBACCO-USE WINDOWS DESKTOP ENGINEER 3-[address]: 038017273 CPT-4: G0436 05/07/2016 TOBACCO-USE WINDOWS DESKTOP ENGINEER 3-[address]: 505329298 CPT-4: G0436 11/07/2015 TRIAMCINOLONE ACET INJ NOS CPT-4: J3301 03/22/2015 ROCEPHIN, PER 250 MG CPT-4: J0696 04/13/2014 TRIAMCINOLONE ACET INJ NOS CPT-4: J3301 04/13/2014 THER/PROPH/DIAG INJ SC/IM CPT-4: 24495 03/29/2014 TRIAMCINOLONE ACET INJ NOS CPT-4: J3301 03/29/2014 Vital Signs Date Vital 06/02/2018 Blood Pressure 1: 130/58 Code : 8480-6 BMI: 17.9 Code : 59559-9 Heart Rate 1 : 87 bpm Height: 5'7" SpO2: 98% Temperature: 36.7 (C) / 98.1 (F) Weight: 114 lbs 04/15/2018 Blood Pressure 1: 140/70 Code : 8480-6 BMI: 17.9 Code : 96035-8 Heart Rate 1 : 80 bpm Height: 5'7" SpO2: 94% Weight: 114 lbs 03/25/2018 Blood Pressure 1: 136/70 Code : 8480-6 BMI: 18.0 Code : 06936-0 Heart Rate 1 : 77 bpm Height: 5'7" SpO2: 98% Weight: 115 lbs 06/24/2017 Blood Pressure 1: 146/70 Code : 8480-6 BMI: 17.4 Code : 76125-0 Heart Rate 1 : 99 bpm Height: 5'7" SpO2: 96% Temperature: 37.6 (C) / 99.6 (F) Weight: 111 lbs 02/15/2017 Blood Pressure 1: 110/70 Code : 8480-6 Heart Rate 1: 77 bpm Height: SpO2: 95% Weight: 09/03/2016 Blood Pressure 1: 98/60 Code : 8480-6 BMI: 16.9 Code : 41258-2 Heart Rate 1 : 82 bpm Height: 5'7" SpO2: 97% Weight: 108 lbs 08/29/2016 Blood Pressure 1: 132/68 Code : 8480-6 BMI: 17.2 Code : 72494-7 Heart Rate 1 : 103 bpm Height: 5'7" SpO2: 95% Temperature: 37.3 (C) / 99.2 (F) Weight: 110 lbs 05/07/2016 Blood Pressure 1: 126/62 Code : 8480-6 BMI: 16.8 Code : 57497-3 Heart Rate 1 : 74 bpm Height: 5'7" SpO2: 98% Weight: 107 lbs 11/07/2015 Blood Pressure 1: 120/68 Code : 8480-6 BMI: 16.6 Code : 53983-9 Heart Rate 1 : 76 bpm Height: 5'7" SpO2: 98% Weight: 106 lbs 04/19/2015 Blood Pressure 1: 132/74 Code : 8480-6 BMI: 17.2 Code : 39552-4 Heart Rate 1 : 77 bpm Height: 5'7" SpO2: 98% Weight: 110 lbs 03/22/2015 Blood Pressure 1: 122/68 Code : 8480-6 BMI: 17.2 Code : 34492-1 Heart Rate 1 : 68 bpm Height: 5'7" SpO2: 97% Weight: 110 lbs 04/13/2014 Blood Pressure 1: 110/68 Code : 8480-6 BMI: 17.9 Code : 22798-9 Heart Rate 1 : 62 bpm Height: 5'7" Weight: 114 lbs 03/29/2014 Blood Pressure 1: 110/58 Code : 8480-6 BMI: 18.2 Code : 33486-6 Heart Rate 1 : 76 bpm Height: 5'7" Weight: 116 lbs 09/10/2013 Blood Pressure 1: 112/70 Code : 8480-6 BMI: 18.5 Code : 84572-8 Heart Rate 1 : 76 bpm Height: 5'7" Weight: 118 lbs 04/20/2013 Blood Pressure 1: 126/84 Code : 8480-6 BMI: 18.0 Code : 04716-0 Heart Rate 1 : 76 bpm Height: 5'7" Weight: 115 lbs Functional Status No Functional Status data History of Present Illness Symptom Name Status Result Effective Date Notes Location frontal sinuses 06/02/2018 None Quality constant None Quality pressure None Onset and Resolution sudden in onset 06/02/2018 None Onset of Symptom 4 days ago 06/02/2018 None Frequency of Episodes daily 06/02/2018 None Location in the throat 06/02/2018 None Quality constant None Quality hacking 06/02 None Quality productive None Onset and Resolution sudden in onset 06/02/2018 None Onset of Symptom 4 days ago 06/02/2018 None well woman exam (65+ years) Menstrual History menopause at age _ 04/15/2018 None well woman exam (65+ years) Pap Smear last normal performed on __-__-__ 04/15/[address] Tee well woman exam (65+ years) Immunizations influenza vaccine (annually over 50 y.o.) 04/15/2018 None well woman exam (65+ years) Health Guidance self-breast exam 04/15/2018 None well woman exam (65+ years) Health Guidance regular mammogram 04/15/2018 None well woman exam (65+ years) Nutrition and Exercise normal weight 04/15/2018 None tinnitus Location in the right ear 03/25/2018 None tinnitus Quality buzzing 03/25/2018 None tinnitus Onset and Resolution ongoing 03/25/2018 None tinnitus Onset of Symptom 1+ years ago 03/25/2018 None tinnitus Limitation on Activities moderately limits hearing 03/25/2018 None tinnitus Frequency of Episodes daily 03/25/2018 None tinnitus Triggers no known associated factors 03/25/2018 None cough Location in the larynx 06/24/2017 None cough Location in the lung 06/24/2017 None cough Location in the throat 06/24/2017 None cough Quality acute None cough Onset and Resolution sudden in onset 06/24/2017 None cough Onset and Resolution ongoing 06/24/2017 None cough Quality hacking 06/24/2017 None cough Quality dry 09/2017 None cough Onset of Symptom 4 days ago 06/24/2017 None cough Limitation on Activities moderately limits activities 06/24/2017 None cough Pertinent Findings chest discomfort 06/24/2017 None cough Pertinent Findings chills 06/24/2017 None cough Pertinent Findings dyspnea 06/24/2017 None cough Pertinent Findings fever 06/24/2017 None cough Pertinent Findings hoarseness 06/24/2017 None cough Pertinent Findings ill contacts 06/24/2017 None cough Pertinent Findings lethargy 06/24/2017 None cough Pertinent Findings muscle aches 06/24/2017 None cough Pertinent Findings nasal congestion 06/24/2017 None cough Pertinent Findings post nasal drip 06/24/2017 None cough Pertinent Findings sputum production 06/24/2017 None cough Pertinent Findings tachypnea 06/24/2017 None cough Pertinent Findings weakness 06/24/2017 None cough Pertinent Findings Denies purulent sputum 06/24/2017 None dental pain Location toothache 02/15/2017 None dental pain Quality acute 02/15/2017 None dental pain Onset and Resolution ongoing 02/15/2017 None dental pain Onset of Symptom _ days ago 02/15/2017 None dental pain Limitation on Activities does not limit oral intake 02/15/2017 None dental pain Frequency of Episodes decreasing 02/15/2017 None dental pain Triggers no known associated factors 02/15/2017 None dental pain Pertinent Findings Denies fever 02/15/2017 None cough Quality acute None cough Quality intermittent 09/03/2016 None cough Quality productive 09/03/2016 None cough Onset and Resolution sudden in onset 09/03/2016 None cough Pertinent Findings Denies chest discomfort 09/03/2016 None cough Pertinent Findings family history of allergies 09/03/2016 None cough Pertinent Findings family history of pulmonary disease 09/03/2016 None cough Pertinent Findings Denies fever 09/03/2016 None cough Pertinent Findings muscle aches 09/03/2016 neck ache---improving cough Pertinent Findings sputum production 09/03/2016 None fever Quality acute None fever Onset and Resolution sudden in onset 09/03/2016 None fever Ill Contacts ill contacts 09/03/2016 granddaughters fever Pertinent Findings cough 09/03/2016 None cough Onset of Symptom 8 days ago 09/03/2016 None cough Quality improving 09/03/2016 None fever Onset and Resolution resolved 09/03/2016 None fever Onset of Symptom 8 days ago 09/03/2016 None cough Quality acute None cough Onset and Resolution sudden in onset 08/29/2016 None cough Quality intermittent 08/29/2016 None cough Quality productive 08/29/2016 at times cough Quality dry 04/2017 None cough Quality hacking 08/29/2016 None cough Onset of Symptom during adulthood 08/29/2016 None cough Limitation on Activities does not limit activities 08/29/2016 None cough Pertinent Findings dyspnea 08/29/2016 None cough Pertinent Findings chest discomfort 08/29/2016 None cough Pertinent Findings fever 08/29/2016 None cough Pertinent Findings family history of allergies 08/29/2016 None cough Pertinent Findings family history of pulmonary disease 08/29/2016 None cough Pertinent Findings ill contacts 08/29/2016 None cough Pertinent Findings hoarseness 08/29/2016 None cough Pertinent Findings muscle aches 08/29/2016 neck ache cough Pertinent Findings sputum production 08/29/2016 at times cough Pertinent Findings lethargy 08/29/2016 None fever Onset and Resolution sudden in onset 08/29/2016 None fever Onset of Symptom 3 days ago 08/29/2016 None fever Quality acute None fever Quality intermittent 08/29/2016 None fever Temperature 99 degrees 08/29/2016 None fever Ill Contacts ill contacts 08/29/2016 granddaughters fever Pertinent Findings cough 08/29/2016 None fever Pertinent Findings dyspnea 08/29/2016 None fever Pertinent Findings upper respiratory tract symptoms 08/29/2016 None sore throat Location on both sides 05/07/2016 None sore throat Quality aching 05/07/2016 None sore throat Quality constant 05/07/2016 None sore throat Onset and Resolution sudden in onset 05/07/2016 None sore throat Onset of Symptom 1 weeks ago 05/07/2016 None sore throat Frequency of Episodes daily 05/07/2016 None earache Location both ears 05/07/2016 None earache Onset and Resolution sudden in onset 05/07/2016 None tinnitus Location in both ears 11/07/2015 None tinnitus Quality buzzing 11/07/2015 None tinnitus Quality intermittent 11/07/2015 None tinnitus Onset and Resolution ongoing 11/07/2015 None tinnitus Onset of Symptom 11/2 months ago 11/07/2015 None tinnitus Limitation on Activities does not limit activities 11/07/2015 None tinnitus Frequency of Episodes daily 11/07/2015 None tinnitus Triggers no known associated factors 11/07/2015 None tinnitus Alleviating Factors activity 11/07/2015 peroxide to clean ear out helped tinnitus Location in both ears 04/19/2015 None tinnitus Quality buzzing 04/19/2015 None tinnitus Quality intermittent 04/19/2015 None tinnitus Onset and Resolution ongoing 04/19/2015 None tinnitus Limitation on Activities does not limit activities 04/19/2015 None tinnitus Frequency of Episodes daily 04/19/2015 None tinnitus Triggers no known associated factors 04/19/2015 None tinnitus Alleviating Factors activity 04/19/2015 peroxide to clean ear out helped tinnitus Onset of Symptom 11/2 months ago 04/19/2015 None tinnitus Location in both ears 03/22/2015 None tinnitus Quality intermittent 03/22/2015 None tinnitus Quality buzzing 03/22/2015 None tinnitus Onset and Resolution ongoing 03/22/2015 None tinnitus Frequency of Episodes daily 03/22/2015 None tinnitus Length of Episodes 2 weeks 03/22/2015 None tinnitus Limitation on Activities does not limit activities 03/22/2015 None tinnitus Triggers no known associated factors 03/22/2015 None tinnitus Alleviating Factors activity 03/22/2015 peroxide to clean ear out helped cough Location in the throat 04/13/2014 None cough Onset of Symptom 4 days ago 04/13/2014 None cough Pertinent Findings Denies fever 04/13/2014 None cough Pertinent Findings ill contacts 04/13/2014 cough Pertinent Findings purulent sputum 04/13/2014 None sinus congestion Onset of Symptom 4 days ago 04/13/2014 None sinus congestion Pertinent Findings cough 04/13/2014 None sinus congestion Pertinent Findings decreased energy level 04/13/2014 None sinus congestion Pertinent Findings fever 04/13/2014 99 sinus congestion Onset and Resolution resolved 04/13/2014 None sinus congestion Severity moderate 04/13/2014 None sinus congestion Frequency of Episodes decreasing 04/13/2014 None sinus congestion Significant Medical Conditions allergic rhinitis 04/13/2014 None sinus congestion Triggers allergens 04/13/2014 None sinus congestion Location on both sides 04/13/2014 None sinus congestion Quality acute 04/13/2014 None shoulder pain Location on the right shoulder 03/29/2014 None shoulder pain Onset of Symptom 1 weeks ago 03/29/2014 has tried stretching, heat and ice with no relief. Says pain is extremely uncomfortable. shoulder pain Exacerbating Factors activity 03/29/2014 None shoulder pain Pertinent Findings Denies fever 03/29/2014 None shoulder pain Pertinent Findings Denies cough 03/29/2014 None back pain Location in the right lower back area 03/29/2014 complains of right hip back back side, radiates up and down back. back pain Onset of Symptom 1 weeks ago 03/29/2014 None back pain Frequency of Episodes constant 03/29/2014 None back pain Exacerbating Factors activity 03/29/2014 None back pain Initial treatment heat 03/29/2014 None back pain Initial treatment ice 03/29/2014 None back pain Initial treatment stretching 03/29/2014 has tried heat, ice and stretching at home with no relief. back pain Radiating the back 03/29/2014 up and down the back. back pain Severity moderate 03/29/2014 None back pain Pertinent Findings Denies chills 03/29/2014 None back pain Pertinent Findings Denies fever 03/29/2014 None back pain Pertinent Findings Denies extremity numbness 03/29/2014 None back pain Pertinent Findings extremity weakness 03/29/2014 feels a little weak but nothing that would make her fall, and it is intermittent. Right leg doesnt function as well. skin lesion Quality firm 09/10/2013 None skin lesion Quality fixed 09/10/2013 None skin lesion Quality raised 09/10/2013 states they sting and itch skin lesion Location upper back 09/10/2013 on right side and comes around to the front skin lesion Onset of Symptom 1 months ago 09/10/2013 states she has always had moles in these areas but now has breaking out on top of the moes skin lesion Severity mild 09/10/2013 None skin lesion Frequency of Episodes unchanged 09/10/2013 None skin lesion Triggers no known associated factors 09/10/2013 None skin lesion Alleviating Factors medication 09/10/2013 anti itch cream skin lesion Pertinent Findings Denies fever 09/10/2013 None headache Quality chronic 04/20/2013 None headache Quality intermittent 04/20/2013 None headache Limitation on Activities moderately limits activities 04/20/2013 The patient states that when having an acute migraine - pt will have to take zomig to control her migraine headaches.She notes that she has maybe one time a month migraines - usually will be worse with stress, but usually only has to take one zomig to control her symptoms. headache Alleviating Factors medication 04/20/2013 None headache Pertinent Findings Denies anxiety 04/20/2013 None headache Pertinent Findings Denies chills 04/20/2013 None headache Pertinent Findings Denies depressed mood 04/20/2013 None headache Pertinent Findings Denies diplopia 04/20/2013 None headache Pertinent Findings Denies dizziness 04/20/2013 None headache Significant Medical Conditions migraines 04/20/2013 None headache Triggers no known associated factors 04/20/2013 None Advance Directives No Advance Directive data Encounters Encounter Performer Location Codes Date 05729 EST. PATIENT, LEVEL III Diagnosis: Pneumonia due to other specified bacteria[ICD10: J15.8] Diagnosis: Acute laryngopharyngitis[ICD10: J06.0] Diagnosis: Other allergic rhinitis[ICD10: J30.89] [facility] CPT-4: 09692 06/02/2018 ([id number]) 45847 EST. PATIENT, LEVEL IV Diagnosis: Encounter for screening mammogram for malignant neoplasm of breast[ ICD10: Z12.31] Diagnosis: Tobacco use[ICD10: Z72.0] Diagnosis: Other emphysema[ICD10: J43.8] Lottie Marshall MD, [facility] CPT- 4: 62341 04/15/2018 ([id number]) 38894 EST. PATIENT, LEVEL III Diagnosis: Otalgia, right ear[ICD10: H92.01] Diagnosis: Other allergic rhinitis[ICD10: J30.89] Cathy Marshall MD, [facility] CPT-4: 72999 03/25/2018 17907 EST. PATIENT, LEVEL III Diagnosis: Acute laryngopharyngitis[ICD10: J06.0] Toma Marshall MD, [facility] CPT-4: 93956 06/24/2017 ([id number]) 40314 EST. PATIENT, LEVEL III Diagnosis: Periapical abscess without sinus[ICD10: K04.7] Cathy Marshall MD, [facility] CPT-4: 81166 02/15/2017 ([id number]) 38723 EST. PATIENT, LEVEL III Diagnosis: Cough[ICD10: R05] Diagnosis: Encounter for screening mammogram for malignant neoplasm of breast[ ICD10: Z12.31] Diagnosis: Tobacco use[ICD10: Z72.0] Lottie Marshall MD, [facility] CPT-4: 97758 09/03/2016 03695 EST. PATIENT, LEVEL III Diagnosis: Acute laryngopharyngitis[ICD10: J06.0] Toma Marshall MD, [facility] CPT-4: 60992 08/29/2016 ([id number]) 60989 EST. PATIENT, LEVEL III Diagnosis: Cough[ICD10: R05] Diagnosis: Acute bronchitis due to other specified organisms[ICD10: J20.8] Diagnosis: Generalized enlarged lymph nodes[ICD10: R59.1] Diagnosis: Tobacco use[ICD10: Z72.0] Lottie Marshall MD, [facility] CPT-4: 79193 05/07/2016 ([id number]) 86258 EST. PATIENT, LEVEL III Diagnosis: Otalgia, bilateral[ICD10: H92.03] Diagnosis: Tobacco use[ICD10: Z72.0] Lottie Marshall MD [facility] CPT-4: 57661 11/07/2015 ([id number]) Miscellaneous no charge Diagnosis: Otalgia, right ear[ICD10: H92.01] [facility] CPT-4: 71432 04/22/2015 ([id number]) 69770 EST. PATIENT, LEVEL III Diagnosis: Tinnitus, bilateral[ICD10: H93.13] Diagnosis: Chronic obstructive pulmonary disease, unspecified[ICD10: J44.9] Lottie Marshall MD [facility] CPT-4: 06837 04/19/2015 ([id number]) 95858 EST. PATIENT, LEVEL III Diagnosis: Allergic rhinitis, unspecified[ICD10: J30.9] Diagnosis: Otalgia, right ear[ICD10: H92.01] Cathy Marshall MD, [facility] CPT-4: 55352 03/22/2015 ([id number]) 49040 EST. PATIENT, LEVEL III Diagnosis: COUGH[ICD9: 786.2] Diagnosis: ACUTE BRONCHITIS[ICD9: 466.0] Diagnosis: ACUTE SINUSITIS[ICD9: 461.9] Cathy Mrashall MD, [facility] CPT-4: 98409 04/13/2014 ([id number]) 33935 EST. PATIENT, LEVEL III Diagnosis: Right hip pain[ICD9: 719.45] Diagnosis: Shoulder pain, acute[ICD9: 719.41] Diagnosis: Sciatica[ICD9: 724.3] [facility] CPT-4: 82896 03/29/2014 ([id number]) 22832 EST. PATIENT, LEVEL III Diagnosis: Rash[ICD9: 782.1] [facility] CPT-4: 46484 09/10/2013 Office outpatient new 30 minutes Diagnosis: Routine medical exam[ICD9: V70.0] Diagnosis: TOBACCO USE DISORDER[ICD9: 305.1] Lottie Marshall MD, [facility] CPT-4: 60433 04/20/2013 Plan of Care Planned Activity Notes Codes Status Date Visit Plan: Pneumonia - Pt has been diagnosed with pneumonia by physical exam. A chest xray has been ordered as have antibiotics. The pt is aware of the diagnosis and the need for acute treatment of this illness. URI - Pt advised to increase fluids, vitamin C. Discussed natural and expected course of this diagnosis and need to alert me if symptoms do not follow expected course, or if any worse. RX sent to patient's pharmacy. Allergies - chronic - recommended pt to use allergy medication as prescribed. Pt has been counseled as to the appropriate use of the medication. Pt to call if allergy symptoms are not controlled with the medication. If using nasal spray , instructions as follows: Nasal spray- use twice daily, one spray per nostril twice daily, after 30 minutes, rinse out nose with saline spray.. Use opposite hand per nostril to spray in the nasal steroid allergy spray. 06/02/2018 Patient Education: Patient Medication Summary Completed 06/02/2018 Patient Education: Cough Completed 06/02/2018 Visit Plan: screening CT of chest COPD - chronic problem for this patient. We have reviewed chronic treatment strategy, symptom control, and plans for acute exacerbations. No changes today to the current treatment plan as the patient is stable, monitor for acute changes. Tinnitus - monitor symptoms - continue with oil in ears. 04/15/2018 Appointment: Lottie Marshall WPtel: [address] [place], [place] [phone] (30 min) [facility] 04/15/2018 Patient Education: Patient Medication Summary Completed 04/15/2018 Care Plan: SCREENINGMAMMOGRAPHYDIGITAL LOINC : 95498-6 Pending 04/15/2018 Care Plan: CT THORAX W/O DYE LOINC : 25369-8 Pending 04/15/2018 Visit Plan: Allergies - chronic - recommended pt to use allergy medication as prescribed. Pt has been counseled as to the appropriate use of the medication. Pt to call if allergy symptoms are not controlled with the medication. If using nasal spray, instructions as follows: Nasal spray- use twice daily, one spray per nostril twice daily, after 30 minutes, rinse out nose with saline spray.. Use opposite hand per nostril to spray in the nasal steroid allergy spray. Tinnitus -right ear -recommend hearing eval 03/25/2018 Appointment: Cathy Sanchez WPtel: [phone] [phone] [place] (15 min) Moderate 03/25/2018 Patient Education: Patient Medication Summary Completed 03/25/2018 Visit Plan: URI - Pt advised to increase fluids, vitamin C. Discussed natural and expected course of this diagnosis and need to alert me if symptoms do not follow expected course, or if any worse. RX sent to patient' s pharmacy. 06/24/2017 Appointment: Toma Suarez WPtel: [phone] [id number] (10 min) Simple 06/24/2017 Patient Education: Patient Medication Summary Completed 06/24/2017 Visit Plan: Tooth infection-will start abx-recommend dental evaluation -return to clinic if symptoms do not resolve or if any worse. Patient verbalized understanding of plan. 02/15/2017 Patient Education: Patient Medication Summary Completed 02/15/2017 Patient Education: Smoking and Tobacco Addiction Completed 02/15/2017 Appointment: Lottie Marshall WPtel: [facility] (15 min) Moderate 11/26/2016 Visit Plan: Allergies - chronic - recommended pt to use allergy medication as prescribed. Pt has been counseled as to the appropriate use of the medication. Pt to call if allergy symptoms are not controlled with the medication. If using nasal spray, instructions as follows: Nasal spray- use twice daily, one spray per nostril twice daily, after 30 minutes, rinse out nose with saline spray.. Use opposite hand per nostril to spray in the nasal steroid allergy spray. 09/03/2016 Appointment: Lottie Marshall WPtel: [address] [facility] (15 min) Moderate 09/03/2016 Patient Education: Patient Medication Summary Completed 09/03/2016 Patient Education: Smoking and Tobacco Addiction Completed 09/03/2016 Care Plan: SCREENINGMAMMOGRAPHYDIGITAL LOINC : 86633-0 Pending 09/03/2016 Visit Plan: URI - Pt advised to increase fluids, vitamin C. Discussed natural and expected course of this diagnosis and need to alert me if symptoms do not follow expected course, or if any worse. RX sent to patient' s pharmacy. 08/29/2016 Appointment: [facility]arez [facility]Ptel[id number] (15 min) Moderate 08/29/2016 Patient Education: Patient Medication Summary Completed 08/29/2016 Patient Education: Smoking and Tobacco Addiction Completed 08/29/2016 Visit Plan: Cough- Bronchitis - enlarged lymph node - rx for zpack, call if not improving. The pt encouraged to stop smoking - pt not interested at this time. 05/07/2016 Patient Education: Patient Medication Summary Completed 05/07/2016 Patient Education: Smoking and Tobacco Addiction Completed 05/07/2016 Visit Plan: Tinnitus - recommended pt to use oil in ears, referral to specialist is symptoms do not improve. Tobaccoism - recommended pt to stop smoking. 11/07/2015 Patient Education: Patient Medication Summary Completed 11/07/2015 Patient Education: Smoking and Tobacco Addiction Completed 11/07/2015 Appointment: Nurse Visit 04/22/2015 Patient Education: Patient Medication Summary Completed 04/22/2015 Visit Plan: COPD - chronic problem for this patient. We have reviewed chronic treatment strategy, symptom control, and plans for acute exacerbations. No changes today to the current treatment plan as the patient is stable, monitor for acute changes. Tinnitus - monitor symptoms - continue with oil in ears. 04/19/2015 Patient Education: Patient Medication Summary Completed 04/19/2015 Visit Plan: Allergies - chronic - recommended pt to use allergy medication as prescribed. Pt has been counseled as to the appropriate use of the medication. Pt to call if allergy symptoms are not controlled with the medication. If using nasal spray, instructions as follows: Nasal spray- use twice daily, one spray per nostril twice daily, after 30 minutes, rinse out nose with saline spray.. Use opposite hand per nostril to spray in the nasal steroid allergy spray. Earache-due to allergies-start daily anti histamine as discussed-sweet oil to right ear for cerumen impaction 03/22/2015 Appointment: (15 min) Moderate 03/22/2015 Patient Education: Patient Medication Summary Completed 03/22/2015 Visit Plan: Sinusitis - Pt has acute infection - pain in face, maxillary region, Pt informed to use decongestant, RX given to patient, sinus rinses also recommended. Call if symptoms do not show improvement. Bronchitis - acute case of bronchitis identified. Pt has been given antibiotics , breathing treatments as appropriate, and pt has been instructed to call if symptoms are not improved, or if symptoms acutely worsen.. 04/13/2014 Patient Education: Patient Medication Summary Completed 04/13/2014 Visit Plan: Sciatica - back exercises discussed with the patient, pt to continue with anti-inflammatories. Pt is to call if the symptoms do not improve or if they worsen. 03/29/2014 Appointment: Lottie Marshall WPtel: [facility] [address] sciatic pain Sick 03/29/2014 Patient Education: Patient Medication Summary Completed 03/29/2014 Visit Plan: Rash-bacterial culture today in the office-RX sent to patient's pharmacy and instructed on use-follow up Saturday with update on symtpoms. Patient verbalized understanding of plan. Recommend A&D ointment to multiple SK's when rash resolved. 09/10/2013 Appointment: Cathy Sanchez WPtel: [facility] 09/10/2013 Patient Education: Patient Medication Summary Completed 09/10/2013 Visit Plan: Well Adult - pt was counseled about diet, exercise, and encouraged to follow a heart healthy diet and increase acrtivity level. The patient was instructed to RTC yearly for well adult exams and PRN for acute illnesses. The pt was also instructed to have yearly labs for check of cholesterol, thyroid, chem panel, CBC, and renal functioning. Tobacco abuse - chronic condition for this patient. Patient has been counseled about need to stop smoking due to the negative health affects. Pt has vocalized understanding and states that they will consider smoking cessation, but the pt is not yet ready to use medication to assist cessation. Pt needs check xray. 04/20/2013 Appointment: Lottie Marshall WPtel: [id number] New Patient 04/20/2013 Patient Education: Patient Medication Summary Completed 04/20/2013 Patient Education: Smoking and Tobacco Addiction Completed 04/20/2013 Instructions Comment SWEET OIL RIGHT EAR . Allergies - chronic - recommended pt to use allergy medication as prescribed. Pt has been counseled as to the appropriate use of the medication. Pt to call if allergy symptoms are not controlled with the medication. If using nasal spray, instructions as follows: Nasal spray- use twice daily, one spray per nostril twice daily, after 30 minutes, rinse out nose with saline spray.. Use opposite hand per nostril to spray in the nasal steroid allergy spray. Earache-due to allergies-start daily anti histamine as discussed-sweet oil to right ear for cerumen impaction . URI - Pt advised to increase fluids, vitamin C. Discussed natural and expected course of this diagnosis and need to alert me if symptoms do not follow expected course, or if any worse. RX sent to patient's pharmacy. . screening CT of chest COPD - chronic problem for this patient. We have reviewed chronic treatment strategy, symptom control, and plans for acute exacerbations. No changes today to the current treatment plan as the patient is stable, monitor for acute changes. Tinnitus - monitor symptoms - continue with oil in ears. . Cough- Bronchitis - enlarged lymph node - rx for zpack, call if not improving. The pt encouraged to stop smoking - pt not interested at this time. . Sciatica - back exercises discussed with the patient, pt to continue with anti-inflammatories. Pt is to call if the symptoms do not improve or if they worsen. steroid and antibiotic shot today start antibiotics (z-pack and cefdinir) tonight start steroid pills tomorrow if needed let me know if you are not feeling any better. . Pneumonia - Pt has been diagnosed with pneumonia by physical exam. A chest xray has been ordered as have antibiotics. The pt is aware of the diagnosis and the need for acute treatment of this illness. URI - Pt advised to increase fluids, vitamin C. Discussed natural and expected course of this diagnosis and need to alert me if symptoms do not follow expected course, or if any worse. RX sent to patient's pharmacy. Allergies - chronic - recommended pt to use allergy medication as prescribed. Pt has been counseled as to the appropriate use of the medication. Pt to call if allergy symptoms are not controlled with the medication. If using nasal spray, instructions as follows: Nasal spray- use twice daily, one spray per nostril twice daily, after 30 minutes, rinse out nose with saline spray.. Use opposite hand per nostril to spray in the nasal steroid allergy spray. . Allergies - chronic - recommended pt to use allergy medication as prescribed. Pt has been counseled as to the appropriate use of the medication. Pt to call if allergy symptoms are not controlled with the medication. If using nasal spray, instructions as follows: Nasal spray- use twice daily, one spray per nostril twice daily, after 30 minutes, rinse out nose with saline spray.. Use opposite hand per nostril to spray in the nasal steroid allergy spray. . COPD - chronic problem for this patient. We have reviewed chronic treatment strategy, symptom control, and plans for acute exacerbations. No changes today to the current treatment plan as the patient is stable, monitor for acute changes. Tinnitus - monitor symptoms - continue with oil in ears. . Rash-bacterial culture today in the office-RX sent to patient's pharmacy and instructed on use-follow up Saturday with update on symtpoms. Patient verbalized understanding of plan. Recommend A&D ointment to multiple SK's when rash resolved. . URI - Pt advised to increase fluids, vitamin C. Discussed natural and expected course of this diagnosis and need to alert me if symptoms do not follow expected course, or if any worse. RX sent to patient's pharmacy. . Well Adult - pt was counseled about diet, exercise, and encouraged to follow a heart healthy diet and increase acrtivity level. The patient was instructed to RTC yearly for well adult exams and PRN for acute illnesses. The pt was also instructed to have yearly labs for check of cholesterol, thyroid, chem panel, CBC, and renal functioning. Tobacco abuse - chronic condition for this patient. Patient has been counseled about need to stop smoking due to the negative health affects. Pt has vocalized understanding and states that they will consider smoking cessation , but the pt is not yet ready to use medication to assist cessation. Pt needs check xray. . Sinusitis - Pt has acute infection - pain in face, maxillary region, Pt informed to use decongestant, RX given to patient, sinus rinses also recommended. Call if symptoms do not show improvement. Bronchitis - acute case of bronchitis identified. Pt has been given antibiotics , breathing treatments as appropriate, and pt has been instructed to call if symptoms are not improved, or if symptoms acutely worsen.. 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 Tooth infection-will start abx-recommend dental evaluation -return to clinic if symptoms do not resolve or if any worse. Patient verbalized understanding of plan. kenalog injection today misty daily . Allergies - chronic - recommended pt to use allergy medication as prescribed. Pt has been counseled as to the appropriate use of the medication. Pt to call if allergy symptoms are not controlled with the medication. If using nasal spray, instructions as follows: Nasal spray- use twice daily, one spray per nostril twice daily, after 30 minutes, rinse out nose with saline spray.. Use opposite hand per nostril to spray in the nasal steroid allergy spray. Tinnitus -right ear -recommend hearing eval . Tinnitus - recommended pt to use oil in ears, referral to specialist is symptoms do not improve. Tobaccoism - recommended pt to stop smoking.
--- OUTSIDE RECORDS SUMMARY | 2018-06-20 09:02 | XMS REPORT | CCD ---
Author Author Lottie Marshall MD, [facility] Address [address] [place] [address] Phone Care Team Providers Care Pretzel Packer Name Role Phone PP Unavailable CCM Unavailable Summary Purpose Interface Exchange Insurance Providers Payer name Policy type / Coverage type Covered democrat ID Effective Begin Date Effective End Date WPS Medicare Part B Medicare Part B [id number] Unknown Family history Daughter Diagnosis Age At [...] Currently employed 04/20/[address]: 54035876 Current every day smoker 04/20/2013 Number of years using tobacco Unknown 20 04/20/2013 Number of cigarettes/day Unknown 20 (One Pack) 04/20/[address]: 102990133 Never drinks alcohol 04/20/2013 Has the patient [...] Fill Instructions prednisone 20 mg tablet RxNorm: 478406 2 Tablet(s) PO daily 06/06/2018 Active Zithromax Z-Sukumar 250 mg tablet RxNorm: 920967 1 Tablet(s) PO QHS 06/02/2018 No Stop Date Active cefdinir 300 mg capsule RxNorm: 893510 1 Capsule(s) PO BID 06/11/2018 Active Kenalog 40 mg/mL suspension for injection RxNorm: 5550262 1 Milliliter(s) Inj 06/02/2018 06/02/2018 Inactive ceftriaxone 500 mg solution for injection RxNorm: 6127349 1 Milliliter(s) Inj 06/02/2018 06/02/2018 Inactive albuterol sulfate 2.5 mg/3 mL (0.083 %) solution for nebulization RxNorm: 478692 3 Milliliter(s) INH Q4 PRN 04/17/2018 06/15/2018 Active Kenalog 40 mg/mL suspension for injection RxNorm: 3963389 1 Milliliter(s) Inj 03/25/2018 03/25/2018 Inactive naratriptan 2.5 mg tablet RxNorm: 485814 TAKE ONE TABLET BY MOUTH AT ONSET OF MIGRAINE. MAY REPEAT IN 4 HOURS. LIMIT 2 TABLETS PER 24 HOURS. 09/16/2017 No Stop Date Active prednisone 10 mg tablets in a dose pack RxNorm: 415203 1 Tablet(s) PO UD 06/24/2017 06/29/2017 Inactive 6-5-4-3-2-1 cefdinir 300 mg capsule RxNorm: 212867 1 Capsule(s) PO BID 09/201707/03/2017 Inactive Zithromax Z-Sukumar 250 mg tablet RxNorm: 809540 1 Tablet(s) PO UD 06/21/2017 06/25/2017 Inactive zpack Zithromax Z-Sukumar 250 mg tablet RxNorm: 282287 1 Tablet(s) PO UD 04/17/2017 04/21/2017 Inactive zpack amoxicillin 500 mg tablet RxNorm: 047715 1 Tablet(s) PO TID 02/21/2017 Inactive naratriptan 2.5 mg tablet RxNorm: 015220 Tablet(s) TAKE ONE TABLET BY MOUTH AT ONSET OF MIGRAINE, MAY REPEAT IN 4 HOURS. LIMIT 5/24 HOURS. 12/10/2016 12/11/2016 Inactive Zithromax Z-Sukumar 250 mg tablet RxNorm: 346674 1 Tablet(s) PO UD 08/29/2016 09/02/2016 Inactive zpack Elimite 5 % topical cream RxNorm: 532052 1 TOP time may repeat in two weeks 05/24/2016 06/22/2016 Inactive Elimite 5 % topical cream RxNorm: 496093 1 TOP time may repeat in two weeks 05/24/2016 05/23/2016 Inactive azithromycin 250 mg tablet RxNorm: 371820 1 Tablet(s) PO UD 2 pills on day #1, then one pill daily x 4 more days 05/07/2016 08/28/2016 Inactive naratriptan 2.5 mg tablet RxNorm: 499938 TAKE ONE TABLET BY MOUTH AT ONSET OF MIGRAINE, MAY REPEAT IN 4 HOURS. LIMIT 5/24 HOURS. 201503/09/2016 Inactive naratriptan 1 mg tablet RxNorm: 987521 Tablet(s) TAKE ONE TABLET BY MOUTH AT ONSET OF MIGRAINE, MAY REPEAT IN 4 HOURS IF MIGRAINE IS NOT RESOLVED...LIMIT 5 PER 25 HOURS 04/11/2015 06/23/2017 Inactive INSURANCE WILL NOT PAY FOR MORE THAN 9 PILLS PER RX prednisone 10 mg tablets in a dose pack RxNorm: 102420 1 Tablet(s) PO UD 03/28/2015 04/02/2015 Inactive 6-5-4-3-2-1 prednisone 10 mg tablets in a dose pack RxNorm: 600693 1 Tablet(s) PO UD 03/28/2015 03/27/2015 Inactive 6-5-4-3-2-1 Kenalog 40 mg/mL suspension for injection RxNorm: 3279352 Milliliter(s) Inj 03/22/2015 03/22/2015 Inactive Keflex 500 mg capsule RxNorm: 502006 1 Capsule(s) PO TID 201403/28/2015 Inactive naratriptan 2.5 mg tablet RxNorm: 081365 Tablet(s) PO PRN as needed 01/19/2015 03/07/2016 Inactive one at onset of migraine, may repeat in 4 hrs. limit 5 in 24 hr.s naratriptan 1 mg tablet RxNorm: 226275 Tablet(s) TAKE ONE TABLET BY MOUTH AT ONSET OF MIGRAINE, MAY REPEAT IN 4 HOURS IF MIGRAINE IS NOT RESOLVED...LIMIT 5 PER 25 HOURS 01/14/2015 01/29/2015 Inactive naratriptan 1 mg tablet RxNorm: 548787 Tablet(s) TAKE ONE TABLET BY MOUTH AT ONSET OF MIGRAINE, MAY REPEAT IN 4 HOURS IF MIGRAINE IS NOT RESOLVED...LIMIT 5 PER 25 HOURS 09/27/2014 10/12/2014 Inactive naratriptan 1 mg tablet RxNorm: 935176 TAKE ONE TABLET BY MOUTH AT ONSET OF MIGRAINE, MAY REPEAT IN 4 HOURS IF MIGRAINE IS NOT RESOLVED...LIMIT 5 PER 25 HOURS 07/16/2014 07/31/2014 Inactive ceftriaxone 500 mg solution for injection RxNorm: 650386 Inj 04/13/2014 Inactive albuterol sulfate 2.5 mg/3 mL (0.083 %) solution for nebulization RxNorm: 550221 3 Milliliter(s) INH Q4 PRN 04/13/2014 06/11/2014 Inactive Kenalog 40 mg/mL suspension for injection RxNorm: 8745812 Milliliter(s) Inj 04/13/2014 04/13/2014 Inactive Flonase 50 mcg/actuation nasal spray,suspension RxNorm: 781900 1 [place] NASAL daily 04/13/2014 04/26/2014 Inactive Zithromax Z-Sukumar 250 mg tablet RxNorm: 722582 1 Tablet(s) PO UD 04/13/2014 04/17/2014 Inactive zpack Kenalog 40 mg/mL suspension for injection RxNorm: 7461207 Milliliter(s) Inj 03/29/2014 03/29/2014 Inactive nystatin-triamcinolone 100,000 unit/g-0.1 % topical cream RxNorm: 4924921 1 Application TOP BID 09/10/2013 09/23/2013 Inactive Bactroban 2 % topical cream RxNorm: 741168 1 Application TOP BID 09/10/2013 09/23/2013 Inactive naratriptan 2.5 mg tablet RxNorm: 811583 Tablet(s) PO PRN 08/2001/18/2015 Inactive one at onset of migraine, may repeat in 4 hrs. limit 5 in 24 hr.s naratriptan 1 mg tablet RxNorm: 637434 1 Tablet(s) PO 201308/19/2013 Inactive one at onset of migraine may repeat in in 4 hr if migraine not resolved. limit 5mg in 25 hr. multivitamin capsule RxNorm: 1 Capsule(s) PO daily No Start Date Active Fish Oil 1,000 mg capsule RxNorm: 1 Capsule(s) PO daily No Start Date Active Calcium 600 + D(3) 600 mg (1,500 mg)-400 unit tablet RxNorm: 733684 2 Tablet(s) PO daily No Start Date Active naratriptan 1 mg tablet RxNorm: 400923 1 Tablet(s) PO No Start Date 07/06/2013 Inactive one at onset of migraine may repeat in naratriptan 2.5 mg tablet RxNorm: 493568 Tablet(s) PO PRN No Start Date 08/19/2013 Inactive Zomig 2.5 mg tablet RxNorm: 169801 Tablet(s) PO PRN No Start Date 08/19/2013 Inactive Daliresp 500 mcg tablet RxNorm: 8989536 1 Tablet(s) PO daily No Start Date 11/06/2015 Inactive Medication Administered Medication Codes Instructions Start Date Status ceftriaxone 500 mg solution for injection RxNorm: 7994978 1Milliliter 06/02/2018 Active Kenalog 40 mg/mL suspension for injection RxNorm: 3018783 1Milliliter 06/02/2018 Active Kenalog 40 mg/mL suspension for injection RxNorm: 4496205 1Milliliter 03/25/2018 No longer Active Kenalog 40 mg/mL suspension for injection RxNorm: 1551636 Milliliter 03/22/2015 No longer Active ceftriaxone 500 mg solution for injection RxNorm: 297535 04/13/2014 No longer Active Kenalog 40 mg/mL suspension for injection RxNorm: 8057077 Milliliter 04/13/2014 No longer Active Kenalog 40 mg/mL suspension for injection RxNorm: 6848907 Milliliter 03/29/2014 No longer Active Immunizations Vaccine [...] 30.7 pg 04/15/2018 Cbc With Differential Ord2 Forest% 6.7 % 04/15/2018 Cbc With Differential Ord2 [...] 2.17 K/ul 04/15/2018 Cbc With Differential Ord2 [place] ABS# 0.5 K/ul 04/15/2018 Cbc With Differential Ord2 Eos ABS# 0.1 K/ul 04/15/2018 Cbc With Differential Ord2 Baso ABS# 0.0 K/ul 04/15/2018 Comp Metabolic Cep979 NA 137 mEq/L 04/15/2018 Comp Metabolic Ldf394 K 4.5 mEq/L 04/15/2018 Comp Metabolic Ixv431 CL 100 mEq/L 04/15/2018 Comp Metabolic Zlb313 CO2 29.0 mEq/L 04/15/2018 Comp Metabolic Fng831 ANION GAP 13 04/15/2018 Comp Metabolic Vio741 GLUCOSE 93 mg/dL 04/15/2018 Comp Metabolic Dbe331 Creat 0.8 mg/dL 04/15/2018 Comp Metabolic Asf615 eGFR 79 ml/min/1.73m2 04/15/2018 Comp Metabolic Mxz114 BUN 21 mg/dL 04/15/2018 Comp Metabolic Qxx802 B/C Ratio 27.3 Ratio 04/15/2018 Comp Metabolic Ttx387 CALCIUM 9.5 mg/dL 04/15/2018 Comp Metabolic Fgs055 ALK PHOS 81 U/L 04/15/2018 Comp Metabolic Aaz207 AST(SGOT) 20 U/L 04/15/2018 Comp Metabolic Fji807 ALT(SGPT) 12 U/L 04/15/2018 Comp Metabolic Hxq667 BILI T 0.6 mg/dL 04/15/2018 Comp Metabolic Pwu092 ALBUMIN 4.3 g/dL 04/15/2018 Comp Metabolic Bbh894 TPRO 7.0 g/dL 04/15/2018 Comp Metabolic Khk826 GLOB 2.7 g/dL 04/15/2018 Comp Metabolic Hwz530 A/G Ratio 1.6 Ratio 04/15/2018 Comp Metabolic Mhw130 Osmo 276 mOsmo 04/15/2018 Lipid Ord30 CHOL 205 mg/dL 04/15/2018 Lipid Ord30 HDL 51.0 mg/dl 04/15/2018 Lipid Ord30 TRIG 79 mg/dL 04/15/2018 Lipid Ord30 LDL 138 mg/dL 04/15/2018 Lipid Ord30 C/HDL 4.0 Ratio 04/15/2018 Vitamin D 25 Oh Hff3217 VITAMIN D, 25 HYDROXY 46.83 ng/mL Cbc [...] 30.5 pg 10/18/2015 Cbc With Differential Ord2 [place]% 6.0 % 10/18/2015 Cbc With Differential Ord2 [...] 1.72 K/ul 10/18/2015 Cbc With Differential Ord2 [place] ABS# 0.3 K/ul 10/18/2015 Cbc With Differential Ord2 Eos ABS# 0.3 K/ul 10/18/2015 Cbc With Differential Ord2 Baso ABS# 0.0 K/ul 10/18/2015 Comp Metabolic Ffo391 NA 138 mEq/L 10/18/2015 Comp Metabolic Zmc351 K 4.4 mEq/L 10/18/2015 Comp Metabolic Rqp550 CL 103 mEq/L 10/18/2015 Comp Metabolic Wyl609 CO2 30.0 mEq/L 10/18/2015 Comp Metabolic Dwn118 ANION GAP 9 10/18/2015 Comp Metabolic Oba163 GLUCOSE 93 mg/dL 10/18/2015 Comp Metabolic Ekf498 Creat 0.7 mg/dL 10/18/2015 Comp Metabolic Cid893 eGFR 90 ml/min/1.73m2 10/18/2015 Comp Metabolic Rqe015 BUN 19 mg/dL 10/18/2015 Comp Metabolic Ctx949 B/C Ratio 27.5 Ratio 10/18/2015 Comp Metabolic Atc081 CALCIUM 9.3 mg/dL 10/18/2015 Comp Metabolic Nxx232 ALK PHOS 95 U/L 10/18/2015 Comp Metabolic Kaj697 AST(SGOT) 17 U/L 10/18/2015 Comp Metabolic Iaw709 ALT(SGPT) 10 U/L 10/18/2015 Comp Metabolic Bnf709 BILI T 0.5 mg/dL 10/18/2015 Comp Metabolic Jbx405 ALBUMIN 4.4 g/dL 10/18/2015 Comp Metabolic Hpk031 TPRO 7.2 g/dL 10/18/2015 Comp Metabolic Pss766 GLOB 2.8 g/dL 10/18/2015 Comp Metabolic Yfh489 A/G Ratio 1.6 Ratio 10/18/2015 Comp Metabolic Eyh857 Osmo 278 mOsmo 10/18/2015 Lipid Ord30 CHOL 201 mg/dL 10/18/2015 Lipid Ord30 HDL 45.0 mg/dl 10/18/2015 Lipid Ord30 TRIG 122 mg/dL 10/18/2015 Lipid Ord30 LDL 132 mg/dL 10/18/2015 Lipid Ord30 C/HDL 4.5 Ratio 10/18/2015 Tsh Ord6 hTSH II 1.46 uIU/mL 10/18/2015 Vitamin D 25 Oh Epk9217 VITAMIN D, 25 HYDROXY 42.46 ng/mL Comp Metabolic Fxv607 NA 135 mEq/L 03/24/2015 Comp Metabolic Sqo440 K 4.1 mEq/L 03/24/2015 Comp Metabolic Api644 CL 103 mEq/L 03/24/2015 Comp Metabolic Rhx010 CO2 28.0 mEq/L 03/24/2015 Comp Metabolic Ept561 ANION GAP 8 03/24/2015 Comp Metabolic Znb993 GLUCOSE 101 mg/dL 03/24/2015 Comp Metabolic Lrb802 Creat 0.7 mg/dL 03/24/2015 Comp Metabolic Wsm074 eGFR 87 ml/min/1.73m2 03/24/2015 Comp Metabolic Kcu188 BUN 17 mg/dL 03/24/2015 Comp Metabolic Wna395 B/C Ratio 23.9 Ratio 03/24/2015 Comp Metabolic Fpg626 CALCIUM 10.0 mg/dL 03/24/2015 Comp Metabolic Jdm680 ALK PHOS 86 U/L 03/24/2015 Comp Metabolic Lue001 AST(SGOT) 20 U/L 03/24/2015 Comp Metabolic Ptg726 ALT(SGPT) 13 U/L 03/24/2015 Comp Metabolic Uvh473 BILI T 0.5 mg/dL 03/24/2015 Comp Metabolic Jnv342 ALBUMIN 4.8 g/dL 03/24/2015 Comp Metabolic Nir919 TPRO 7.8 g/dL 03/24/2015 Comp Metabolic Rzu749 GLOB 3.0 g/dL 03/24/2015 Comp Metabolic Tsl710 A/G Ratio 1.6 Ratio 03/24/2015 Comp Metabolic Axt446 Osmo 272 mOsmo 03/24/2015 Tsh Ord6 hTSH [...] CPT-4: J3301 06/02/2018 THER/PROPH/DIAG INJ SC/IM CPT-4: 58391 06/02/2018 ROCEPHIN, PER 250 MG CPT-4: J0696 06/02/2018 TRIAMCINOLONE ACET INJ NOS CPT-4: J3301 03/25/2018 TOBACCO-USE SPEECH AND LANGUAGE ASSISTANT 3-[address]: 179757854 CPT-4: G0436 09/03/2016 TOBACCO-USE SPEECH AND LANGUAGE ASSISTANT 3-[address]: 810098222 CPT-4: G0436 05/07/2016 TOBACCO-USE SPEECH AND LANGUAGE ASSISTANT 3-[address]: 964546176 CPT-4: G0436 11/07/2015 TRIAMCINOLONE ACET INJ NOS CPT-4: J3301 03/22/2015 ROCEPHIN, PER 250 MG CPT-4: J0696 04/13/2014 TRIAMCINOLONE ACET INJ NOS CPT-4: J3301 04/13/2014 THER/PROPH/DIAG INJ SC/IM CPT-4: 92158 03/29/2014 TRIAMCINOLONE ACET INJ NOS CPT-4: J3301 03/29/2014 Vital Signs Date Vital 06/02/2018 Blood Pressure 1: 130/58 Code : 8480-6 BMI: 17.9 Code : 34696-2 Heart Rate 1 : 87 bpm Height: 5'7" SpO2: 98% Temperature: 36.7 (C) / 98.1 (F) Weight: 114 lbs 04/15/2018 Blood Pressure 1: 140/70 Code : 8480-6 BMI: 17.9 Code : 92931-8 Heart Rate 1 : 80 bpm Height: 5'7" SpO2: 94% Weight: 114 lbs 03/25/2018 Blood Pressure 1: 136/70 Code : 8480-6 BMI: 18.0 Code : 90590-5 Heart Rate 1 : 77 bpm Height: 5'7" SpO2: 98% Weight: 115 lbs 06/24/2017 Blood Pressure 1: 146/70 Code : 8480-6 BMI: 17.4 Code : 39063-5 Heart Rate 1 : 99 bpm Height: 5'7" SpO2: 96% Temperature: 37.6 (C) / 99.6 (F) Weight: 111 lbs 02/15/2017 Blood Pressure 1: 110/70 Code : 8480-6 Heart Rate 1: 77 bpm Height: SpO2: 95% Weight: 09/03/2016 Blood Pressure 1: 98/60 Code : 8480-6 BMI: 16.9 Code : 31651-3 Heart Rate 1 : 82 bpm Height: 5'7" SpO2: 97% Weight: 108 lbs 08/29/2016 Blood Pressure 1: 132/68 Code : 8480-6 BMI: 17.2 Code : 55865-8 Heart Rate 1 : 103 bpm Height: 5'7" SpO2: 95% Temperature: 37.3 (C) / 99.2 (F) Weight: 110 lbs 05/07/2016 Blood Pressure 1: 126/62 Code : 8480-6 BMI: 16.8 Code : 65045-3 Heart Rate 1 : 74 bpm Height: 5'7" SpO2: 98% Weight: 107 lbs 11/07/2015 Blood Pressure 1: 120/68 Code : 8480-6 BMI: 16.6 Code : 07292-6 Heart Rate 1 : 76 bpm Height: 5'7" SpO2: 98% Weight: 106 lbs 04/19/2015 Blood Pressure 1: 132/74 Code : 8480-6 BMI: 17.2 Code : 08377-8 Heart Rate 1 : 77 bpm Height: 5'7" SpO2: 98% Weight: 110 lbs 03/22/2015 Blood Pressure 1: 122/68 Code : 8480-6 BMI: 17.2 Code : 63809-7 Heart Rate 1 : 68 bpm Height: 5'7" SpO2: 97% Weight: 110 lbs 04/13/2014 Blood Pressure 1: 110/68 Code : 8480-6 BMI: 17.9 Code : 86151-7 Heart Rate 1 : 62 bpm Height: 5'7" Weight: 114 lbs 03/29/2014 Blood Pressure 1: 110/58 Code : 8480-6 BMI: 18.2 Code : 56407-0 Heart Rate 1 : 76 bpm Height: 5'7" Weight: 116 lbs 09/10/2013 Blood Pressure 1: 112/70 Code : 8480-6 BMI: 18.5 Code : 82846-2 Heart Rate 1 : 76 bpm Height: 5'7" Weight: 118 lbs 04/20/2013 Blood Pressure 1: 126/84 Code : 8480-6 BMI: 18.0 Code : 62039-7 Heart Rate 1 : 76 bpm Height: [...] data Encounters Encounter Performer Location Codes Date [id number] EST. PATIENT, LEVEL III Diagnosis: Pneumonia due to other specified bacteria[ICD10: J15.8] Diagnosis: Acute laryngopharyngitis[ICD10: J06.0] Diagnosis: Other allergic rhinitis[ICD10: J30.89] [facility] CPT-4: 39602 06/02/2018 ([id number]) 08946 EST. PATIENT, LEVEL IV Diagnosis: Encounter for screening mammogram for malignant neoplasm of breast[ ICD10: Z12.31] Diagnosis: Tobacco use[ICD10: Z72.0] Diagnosis: Other emphysema[ICD10: J43.8] Lottie Marshall MD, [facility] CPT- 4: 39804 04/15/2018 ([id number]) 35734 EST. PATIENT, LEVEL III Diagnosis: Otalgia, right ear[ICD10: H92.01] Diagnosis: Other allergic rhinitis[ICD10: J30.89] Cathy Marshall MD, [facility] CPT-4: 05324 03/25/2018 [id number] EST. PATIENT, LEVEL III Diagnosis: Acute laryngopharyngitis[ICD10: J06.0] Toma Marshall MD, [facility] CPT-4: 04730 06/24/2017 ([id number]) 66939 EST. PATIENT, LEVEL III Diagnosis: Periapical abscess without sinus[ICD10: K04.7] Cathy Marshall MD, [facility] CPT-4: 49734 02/15/2017 ([id number]) 27390 EST. PATIENT, LEVEL III Diagnosis: Cough[ICD10: R05] Diagnosis: Encounter for screening mammogram for malignant neoplasm of breast[ ICD10: Z12.31] Diagnosis: Tobacco use[ICD10: Z72.0] Lottie Marshall MD, [facility] CPT-4: 85223 09/03/2016 80824 EST. PATIENT, LEVEL III Diagnosis: Acute laryngopharyngitis[ICD10: J06.0] Toma Marshall MD, [facility] CPT-4: 76440 08/29/2016 ([id number]) 71058 EST. PATIENT, LEVEL III Diagnosis: Cough[ICD10: R05] Diagnosis: Acute bronchitis due to other specified organisms[ICD10: J20.8] Diagnosis: Generalized enlarged lymph nodes[ICD10: R59.1] Diagnosis: Tobacco use[ICD10: Z72.0] Lottie Marshall MD, [facility] CPT-4: 06519 05/07/2016 ([id number]) 85999 EST. PATIENT, LEVEL III Diagnosis: Otalgia, bilateral[ICD10: H92.03] Diagnosis: Tobacco use[ICD10: Z72.0] Lottie Marshall MD [facility] CPT-4: 98868 11/07/2015 ([id number]) Miscellaneous no charge Diagnosis: Otalgia, right ear[ICD10: H92.01] [facility] CPT-4: 75686 04/22/2015 ([id number]) 99341 EST. PATIENT, LEVEL III Diagnosis: Tinnitus, bilateral[ICD10: H93.13] Diagnosis: Chronic obstructive pulmonary disease, unspecified[ICD10: J44.9] Lottie Marshall MD [facility] CPT-4: 86012 04/19/2015 ([id number]) 17396 EST. PATIENT, LEVEL III Diagnosis: Allergic rhinitis, unspecified[ICD10: J30.9] Diagnosis: Otalgia, right ear[ICD10: H92.01] Cathy Marshall MD, [facility] CPT-4: 35612 03/22/2015 ([id number]) 55712 EST. PATIENT, LEVEL III Diagnosis: COUGH[ICD9: 786.2] Diagnosis: ACUTE BRONCHITIS[ICD9: 466.0] Diagnosis: ACUTE SINUSITIS[ICD9: 461.9] Cathy Marhsall MD, [facility] CPT-4: 13696 04/13/2014 ([id number]) 13177 EST. PATIENT, LEVEL III Diagnosis: Right hip pain[ICD9: 719.45] Diagnosis: Shoulder pain, acute[ICD9: 719.41] Diagnosis: Sciatica[ICD9: 724.3] [facility] CPT-4: 23476 03/29/2014 ([id number]) 93064 EST. PATIENT, LEVEL III Diagnosis: Rash[ICD9: 782.1] [facility] CPT-4: 90955 09/10/2013 Office outpatient new 30 minutes Diagnosis: Routine medical exam[ICD9: V70.0] Diagnosis: TOBACCO USE DISORDER[ICD9: 305.1] Lottie Marshall MD, [facility] CPT-4: 17813 04/20/2013 Plan of Care Planned Activity Notes [...] ears. 04/15/2018 Appointment: Lottie Marshall WPtel: [address] [place], [place] [phone] (30 min) [facility] 04/15/2018 Patient Education: Patient Medication Summary Completed 04/15/2018 Care Plan: SCREENINGMAMMOGRAPHYDIGITAL LOINC : 35363-9 Pending 04/15/2018 Care Plan: CT THORAX W/O DYE LOINC : 90618-7 Pending 04/15/2018 Visit Plan: Allergies - chronic [...] hearing eval 03/25/2018 Appointment: Cathy Sanchez WPtel: [phone] [phone] [place] (15 min) Moderate 03/25/2018 Patient Education: Patient Medication Summary Completed 03/25/2018 Visit Plan: URI - Pt advised to increase fluids, vitamin C. Discussed natural and expected course of this diagnosis and need to alert me if symptoms do not follow expected course, or if any worse. RX sent to patient' s pharmacy. 06/24/2017 Appointment: Toma Suarez WPtel: [phone] [facility] (10 min) Simple 06/24/2017 Patient Education: Patient Medication Summary Completed 06/24/2017 Visit Plan: Tooth infection-will start abx-recommend dental evaluation -return to clinic if symptoms do not resolve or if any worse. Patient verbalized understanding of plan. 02/15/2017 Patient Education: Patient Medication Summary Completed 02/15/2017 Patient Education: Smoking and Tobacco Addiction Completed 02/15/2017 Appointment: Lottie Marshall WPtel: [facility] (15 min) Moderate 11/26/2016 Visit Plan: Allergies [...] allergy spray. 09/03/2016 Appointment: Lottie Marshall WPtel: [phone] [phone] (15 min) Moderate 09/03/2016 Patient Education: Patient Medication Summary Completed 09/03/2016 Patient Education: Smoking and Tobacco Addiction Completed 09/03/2016 Care Plan: SCREENINGMAMMOGRAPHYDIGITAL LOINC : 98519-1 Pending 09/03/2016 Visit Plan: URI - Pt advised to increase fluids, vitamin C. Discussed natural and expected course of this diagnosis and need to alert me if symptoms do not follow expected course, or if any worse. RX sent to patient' s pharmacy. 08/29/2016 Appointment: [facility] Suarez [facility] (15 min) Moderate 08/29/2016 Patient Education: Patient [...] they worsen. 03/29/2014 Appointment: Lottie Marshall WPtel: [facility] [address] sciatic pain Sick 03/29/2014 Patient Education: Patient Medication Summary Completed 03/29/2014 Visit Plan: Rash-bacterial culture today in the office-RX sent to patient's pharmacy and instructed on use-follow up Saturday with update on symtpoms. Patient verbalized understanding of plan. Recommend A&D ointment to multiple SK's when rash resolved. 09/10/2013 Appointment: Cathy Sanchez WPtel: [facility] 09/10/2013 Patient Education: Patient Medication Summary [...] xray. 04/20/2013 Appointment: Lottie Marshall WPtel: [phone] [facility] New Patient 04/20/2013 Patient Education: Patient Medication [...] follow up in 2 weeks if lymph distiller . Tooth infection-will start abx-recommend dental evaluation [...]
--- OUTSIDE RECORDS SUMMARY | 2018-06-20 09:04 | XMS REPORT | CCD ---
Author Author Lottie Marshall MD, [facility] Address [address] [place] [address] Phone Care Team Providers Care Marketing Sales Consultant Name Role Phone PP Unavailable CCM Unavailable Summary Purpose Interface Exchange Insurance Providers Payer name Policy type / Coverage type Covered constitution party ID Effective Begin Date Effective End Date WPS Medicare Part B Medicare Part B [id number] Unknown Family history Daughter Diagnosis Age At [...] Currently employed 04/20/[address]: 62522141 Current every day smoker 04/20/2013 Number of years using tobacco Unknown 20 04/20/2013 Number of cigarettes/day Unknown 20 (One Pack) 04/20/[address]: 508561412 Never drinks alcohol 04/20/2013 Has the patient [...] Codes Condition Status Onset Date Resolved Date Encounter for screening mammogram for malignant neoplasm of breast ICD-9: V76.12 ICD-10: Z12.31 Active 09/03/2016 Unknown Other emphysema ICD-9 : 492.8 ICD-10: J43.8 Active 04/15/2018 Unknown Tobacco use ICD-9: 305.1 ICD-10: Z72.0 Active 04/20/2013 Unknown Otalgia, right ear ICD -9: 388.70 ICD-10: H92.01 Active 04/21/2015 Unknown Other allergic rhinitis ICD-9: 477.8 ICD-10: J30.89 Active 03/25/2018 Unknown Acute laryngopharyngitis ICD-9: 465.0 ICD-10: J06.0 Active 08/29/2016 Unknown Periapical abscess without sinus ICD-9: 522.5 [...] Problems Condition Codes Effective Dates Condition Status Encounter for screening mammogram for malignant neoplasm of breast ICD-9: V76.12 ICD-10: Z12.31 09/03/2016 Active Other emphysema ICD-9 : 492.8 ICD-10: J43.8 04/15/2018 Active Tobacco use ICD-9: 305.1 ICD-10: Z72.0 04/20/2013 Active Otalgia, right ear ICD -9: 388.70 ICD-10: H92.01 04/21/2015 Active Other allergic rhinitis ICD-9: 477.8 ICD-10: J30.89 03/25/2018 Active Acute laryngopharyngitis ICD-9: 465.0 ICD-10: J06.0 08/29/2016 Active Periapical abscess without sinus ICD-9: 522.5 [...] Start Date Stop Date Status Fill Instructions albuterol sulfate 2.5 mg/3 mL (0.083 %) solution for nebulization RxNorm: 133826 3 Milliliter(s) INH Q4 PRN 04/17/2018 06/15/2018 Active Kenalog 40 mg/mL suspension for injection RxNorm: 6171038 1 Milliliter(s) Inj 03/25/2018 03/25/2018 Inactive naratriptan 2.5 mg tablet RxNorm: 797484 TAKE ONE TABLET BY MOUTH AT ONSET OF MIGRAINE. MAY REPEAT IN 4 HOURS. LIMIT 2 TABLETS PER 24 HOURS. 09/16/2017 No Stop Date Active prednisone 10 mg tablets in a dose pack RxNorm: 989723 1 Tablet(s) PO UD 06/24/2017 06/29/2017 Inactive 6-5-4-3-2-1 cefdinir 300 mg capsule RxNorm: 215130 1 Capsule(s) PO BID 09/201707/03/2017 Inactive Zithromax Z-Sukumar 250 mg tablet RxNorm: 236399 1 Tablet(s) PO UD 06/21/2017 06/25/2017 Inactive zpack Zithromax Z-Sukumar 250 mg tablet RxNorm: 127375 1 Tablet(s) PO UD 04/17/2017 04/21/2017 Inactive zpack amoxicillin 500 mg tablet RxNorm: 770515 1 Tablet(s) PO TID 02/21/2017 Inactive naratriptan 2.5 mg tablet RxNorm: 292496 Tablet(s) TAKE ONE TABLET BY MOUTH AT ONSET OF MIGRAINE, MAY REPEAT IN 4 HOURS. LIMIT 5/24 HOURS. 12/10/2016 12/11/2016 Inactive Zithromax Z-Sukumar 250 mg tablet RxNorm: 517729 1 Tablet(s) PO UD 08/29/2016 09/02/2016 Inactive zpack Elimite 5 % topical cream RxNorm: 365494 1 TOP time may repeat in two weeks 05/24/2016 06/22/2016 Inactive Elimite 5 % topical cream RxNorm: 125126 1 TOP time may repeat in two weeks 05/24/2016 05/23/2016 Inactive azithromycin 250 mg tablet RxNorm: 620665 1 Tablet(s) PO UD 2 pills on day #1, then one pill daily x 4 more days 05/07/2016 08/28/2016 Inactive naratriptan 2.5 mg tablet RxNorm: 319112 TAKE ONE TABLET BY MOUTH AT ONSET OF MIGRAINE, MAY REPEAT IN 4 HOURS. LIMIT 5/24 HOURS. 201503/09/2016 Inactive naratriptan 1 mg tablet RxNorm: 328787 Tablet(s) TAKE ONE TABLET BY MOUTH AT ONSET OF MIGRAINE, MAY REPEAT IN 4 HOURS IF MIGRAINE IS NOT RESOLVED...LIMIT 5 PER 25 HOURS 04/11/2015 06/23/2017 Inactive INSURANCE WILL NOT PAY FOR MORE THAN 9 PILLS PER RX prednisone 10 mg tablets in a dose pack RxNorm: 884845 1 Tablet(s) PO UD 03/28/2015 04/02/2015 Inactive 6-5-4-3-2-1 prednisone 10 mg tablets in a dose pack RxNorm: 277469 1 Tablet(s) PO UD 03/28/2015 03/27/2015 Inactive 6-5-4-3-2-1 Kenalog 40 mg/mL suspension for injection RxNorm: 7885855 Milliliter(s) Inj 03/22/2015 03/22/2015 Inactive Keflex 500 mg capsule RxNorm: 530403 1 Capsule(s) PO TID 201403/28/2015 Inactive naratriptan 2.5 mg tablet RxNorm: 640324 Tablet(s) PO PRN as needed 01/19/2015 03/07/2016 Inactive one at onset of migraine, may repeat in 4 hrs. limit 5 in 24 hr.s naratriptan 1 mg tablet RxNorm: 195882 Tablet(s) TAKE ONE TABLET BY MOUTH AT ONSET OF MIGRAINE, MAY REPEAT IN 4 HOURS IF MIGRAINE IS NOT RESOLVED...LIMIT 5 PER 25 HOURS 01/14/2015 01/29/2015 Inactive naratriptan 1 mg tablet RxNorm: 679439 Tablet(s) TAKE ONE TABLET BY MOUTH AT ONSET OF MIGRAINE, MAY REPEAT IN 4 HOURS IF MIGRAINE IS NOT RESOLVED...LIMIT 5 PER 25 HOURS 09/27/2014 10/12/2014 Inactive naratriptan 1 mg tablet RxNorm: 686187 TAKE ONE TABLET BY MOUTH AT ONSET OF MIGRAINE, MAY REPEAT IN 4 HOURS IF MIGRAINE IS NOT RESOLVED...LIMIT 5 PER 25 HOURS 07/16/2014 07/31/2014 Inactive ceftriaxone 500 mg solution for injection RxNorm: 043920 Inj 04/13/2014 Inactive albuterol sulfate 2.5 mg/3 mL (0.083 %) solution for nebulization RxNorm: 500142 3 Milliliter(s) INH Q4 PRN 04/13/2014 06/11/2014 Inactive Kenalog 40 mg/mL suspension for injection RxNorm: 0137532 Milliliter(s) Inj 04/13/2014 04/13/2014 Inactive Flonase 50 mcg/actuation nasal spray,suspension RxNorm: 202951 1 [place] NASAL daily 04/13/2014 04/26/2014 Inactive Zithromax Z-Sukumar 250 mg tablet RxNorm: 318299 1 Tablet(s) PO UD 04/13/2014 04/17/2014 Inactive zpack Kenalog 40 mg/mL suspension for injection RxNorm: 9637660 Milliliter(s) Inj 03/29/2014 03/29/2014 Inactive nystatin-triamcinolone 100,000 unit/g-0.1 % topical cream RxNorm: 6716645 1 Application TOP BID 09/10/2013 09/23/2013 Inactive Bactroban 2 % topical cream RxNorm: 575971 1 Application TOP BID 09/10/2013 09/23/2013 Inactive naratriptan 2.5 mg tablet RxNorm: 923590 Tablet(s) PO PRN 08/2001/18/2015 Inactive one at onset of migraine, may repeat in 4 hrs. limit 5 in 24 hr.s naratriptan 1 mg tablet RxNorm: 091073 1 Tablet(s) PO 201308/19/2013 Inactive one at onset of migraine may repeat in in 4 hr if migraine not resolved. limit 5mg in 25 hr. multivitamin capsule RxNorm: 1 Capsule(s) PO daily No Start Date Active Fish Oil 1,000 mg capsule RxNorm: 1 Capsule(s) PO daily No Start Date Active Calcium 600 + D(3) 600 mg (1,500 mg)-400 unit tablet RxNorm: 861022 2 Tablet(s) PO daily No Start Date Active naratriptan 1 mg tablet RxNorm: 331729 1 Tablet(s) PO No Start Date 07/06/2013 Inactive one at onset of migraine may repeat in naratriptan 2.5 mg tablet RxNorm: 782430 Tablet(s) PO PRN No Start Date 08/19/2013 Inactive Zomig 2.5 mg tablet RxNorm: 000159 Tablet(s) PO PRN No Start Date 08/19/2013 Inactive Daliresp 500 mcg tablet RxNorm: 1227915 1 Tablet(s) PO daily No Start Date 11/06/2015 Inactive Medication Administered Medication Codes Instructions Start Date Status Kenalog 40 mg/mL suspension for injection RxNorm: 4715638 1Milliliter 03/25/2018 No longer Active Kenalog 40 mg/mL suspension for injection RxNorm: 4763533 Milliliter 03/22/2015 No longer Active ceftriaxone 500 mg solution for injection RxNorm: 959370 04/13/2014 No longer Active Kenalog 40 mg/mL suspension for injection RxNorm: 7895993 Milliliter 04/13/2014 No longer Active Kenalog 40 mg/mL suspension for injection RxNorm: 7343171 Milliliter 03/29/2014 No longer Active Immunizations Vaccine Codes Date Status Influenza CVX: 141 02/17/2018 completed PPD Unknown 04/22/2015 completed Assessments Condition Codes Effective Dates Tobacco use ICD-10: Z72.0 ICD-9: 305.1 04/15/2018 Other emphysema ICD-10: J43.8 ICD-9: 492.8 04/15/2018 Encounter for screening mammogram for malignant neoplasm of breast ICD-10: Z12.31 ICD-9: V76.12 04/15/2018 Otalgia, right ear ICD-10: H92.01 ICD-9: 388.70 03/25/2018 Other allergic rhinitis ICD-10: J30.89 ICD-9: 477.8 03/25/2018 Acute laryngopharyngitis ICD-10: J06.0 ICD-9: 465.0 06/24/2017 Periapical abscess without sinus ICD-10: K04.7 ICD-9: [...] Visit Reason For Visit Effective Dates Notes well woman exam (65+ years) 04/15/2018 tinnitus [...] 13.8 g/dl 04/15/2018 Cbc With Differential Ord2 HCT 42.1 % 04/15/2018 Cbc With Differential Ord2 Neut% 60.8 % 04/15/2018 Cbc With Differential Ord2 MCV 93.6 fl 04/15/2018 Cbc With Differential Ord2 Lymph% 31.0 % 04/15/2018 Cbc With Differential Ord2 MCH 30.7 pg 04/15/2018 Cbc With Differential Ord2 [place]% 6.7 % 04/15/2018 Cbc With Differential Ord2 Eos% 1.4 % 04/15/2018 Cbc With Differential Ord2 MCHC 32.8 pg 04/15/2018 Cbc With Differential Ord2 Baso% 0.1 % 04/15/2018 Cbc With Differential Ord2 PLT 290 K/ul 04/15/2018 Cbc With Differential Ord2 Neut ABS# 4.26 K/ul 04/15/2018 Cbc With Differential Ord2 RDW 13.8 % 04/15/2018 Cbc With Differential Ord2 Lymph ABS# 2.17 K/ul 04/15/2018 Cbc With Differential Ord2 [place] ABS# 0.5 K/ul 04/15/2018 Cbc With Differential Ord2 Eos ABS# 0.1 K/ul 04/15/2018 Cbc With Differential Ord2 Baso ABS# 0.0 K/ul 04/15/2018 Comp Metabolic Knc697 NA 137 mEq/L 04/15/2018 Comp Metabolic Sbp124 K 4.5 mEq/L 04/15/2018 Comp Metabolic Wab363 CL 100 mEq/L 04/15/2018 Comp Metabolic Blm280 CO2 29.0 mEq/L 04/15/2018 Comp Metabolic Jtb347 ANION GAP 13 04/15/2018 Comp Metabolic Wtl419 GLUCOSE 93 mg/dL 04/15/2018 Comp Metabolic Kzv211 Creat 0.8 mg/dL 04/15/2018 Comp Metabolic Jru839 eGFR 79 ml/min/1.73m2 04/15/2018 Comp Metabolic Mrd087 BUN 21 mg/dL 04/15/2018 Comp Metabolic Dgh741 B/C Ratio 27.3 Ratio 04/15/2018 Comp Metabolic Uip218 CALCIUM 9.5 mg/dL 04/15/2018 Comp Metabolic Jsy358 ALK PHOS 81 U/L 04/15/2018 Comp Metabolic Sts789 AST(SGOT) 20 U/L 04/15/2018 Comp Metabolic Vyy927 ALT(SGPT) 12 U/L 04/15/2018 Comp Metabolic Wmh015 BILI T 0.6 mg/dL 04/15/2018 Comp Metabolic Yyl102 ALBUMIN 4.3 g/dL 04/15/2018 Comp Metabolic Bpj786 TPRO 7.0 g/dL 04/15/2018 Comp Metabolic Tfz058 GLOB 2.7 g/dL 04/15/2018 Comp Metabolic Vdk266 A/G Ratio 1.6 Ratio 04/15/2018 Comp Metabolic Dnz094 Osmo 276 mOsmo 04/15/2018 Lipid Ord30 CHOL 205 mg/dL 04/15/2018 Lipid Ord30 HDL 51.0 mg/dl 04/15/2018 Lipid Ord30 TRIG 79 mg/dL 04/15/2018 Lipid Ord30 LDL 138 mg/dL 04/15/2018 Lipid Ord30 C/HDL 4.0 Ratio 04/15/2018 Vitamin D 25 Oh Nyv1788 VITAMIN D, 25 HYDROXY 46.83 ng/mL Cbc With Differential Ord2 WBC 5.13 K/ul 10/18/2015 Cbc With Differential Ord2 RBC 4.72 M/ul 10/18/2015 Cbc With Differential Ord2 HGB 14.4 g/dl 10/18/2015 Cbc With Differential Ord2 HCT 44.4 % 10/18/2015 Cbc With Differential Ord2 Neut% 54.6 % 10/18/2015 Cbc With Differential Ord2 Lymph% 33.5 % 10/18/2015 Cbc With Differential Ord2 MCV 94.1 fl 10/18/2015 Cbc With Differential Ord2 MCH 30.5 pg 10/18/2015 Cbc With Differential Ord2 [place]% 6.0 % 10/18/2015 Cbc With Differential Ord2 Eos% 5.5 % 10/18/2015 Cbc With Differential Ord2 MCHC 32.4 pg 10/18/2015 Cbc With Differential Ord2 Baso% 0.4 % 10/18/2015 Cbc With Differential Ord2 PLT 286 K/ul 10/18/2015 Cbc With Differential Ord2 Neut ABS# 2.80 K/ul 10/18/2015 Cbc With Differential Ord2 RDW 14.0 % 10/18/2015 Cbc With Differential Ord2 Lymph ABS# 1.72 K/ul 10/18/2015 Cbc With Differential Ord2 [place] ABS# 0.3 K/ul 10/18/2015 Cbc With Differential Ord2 Eos ABS# 0.3 K/ul 10/18/2015 Cbc With Differential Ord2 Baso ABS# 0.0 K/ul 10/18/2015 Comp Metabolic Tlt773 NA 138 mEq/L 10/18/2015 Comp Metabolic Gzp386 K 4.4 mEq/L 10/18/2015 Comp Metabolic Ntn702 CL 103 mEq/L 10/18/2015 Comp Metabolic Xfc056 CO2 30.0 mEq/L 10/18/2015 Comp Metabolic Puo418 ANION GAP 9 10/18/2015 Comp Metabolic Owm175 GLUCOSE 93 mg/dL 10/18/2015 Comp Metabolic Nab399 Creat 0.7 mg/dL 10/18/2015 Comp Metabolic Miz803 eGFR 90 ml/min/1.73m2 10/18/2015 Comp Metabolic Fbc487 BUN 19 mg/dL 10/18/2015 Comp Metabolic Aab140 B/C Ratio 27.5 Ratio 10/18/2015 Comp Metabolic Ohb479 CALCIUM 9.3 mg/dL 10/18/2015 Comp Metabolic Ols467 ALK PHOS 95 U/L 10/18/2015 Comp Metabolic Gmm195 AST(SGOT) 17 U/L 10/18/2015 Comp Metabolic Bzq627 ALT(SGPT) 10 U/L 10/18/2015 Comp Metabolic Zgp817 BILI T 0.5 mg/dL 10/18/2015 Comp Metabolic Mtm098 ALBUMIN 4.4 g/dL 10/18/2015 Comp Metabolic Udr688 TPRO 7.2 g/dL 10/18/2015 Comp Metabolic Bmh876 GLOB 2.8 g/dL 10/18/2015 Comp Metabolic Aya822 A/G Ratio 1.6 Ratio 10/18/2015 Comp Metabolic Mry881 Osmo 278 mOsmo 10/18/2015 Lipid Ord30 CHOL 201 mg/dL 10/18/2015 Lipid Ord30 HDL 45.0 mg/dl 10/18/2015 Lipid Ord30 TRIG 122 mg/dL 10/18/2015 Lipid Ord30 LDL 132 mg/dL 10/18/2015 Lipid Ord30 C/HDL 4.5 Ratio 10/18/2015 Tsh Ord6 hTSH II 1.46 uIU/mL 10/18/2015 Vitamin D 25 Oh Toz7366 VITAMIN D, 25 HYDROXY 42.46 ng/mL Comp Metabolic Deo154 NA 135 mEq/L 03/24/2015 Comp Metabolic Rso347 K 4.1 mEq/L 03/24/2015 Comp Metabolic Vkk340 CL 103 mEq/L 03/24/2015 Comp Metabolic Jka468 CO2 28.0 mEq/L 03/24/2015 Comp Metabolic Zzx312 ANION GAP 8 03/24/2015 Comp Metabolic Nms930 GLUCOSE 101 mg/dL 03/24/2015 Comp Metabolic Mhg130 Creat 0.7 mg/dL 03/24/2015 Comp Metabolic Ijg336 eGFR 87 ml/min/1.73m2 03/24/2015 Comp Metabolic Yyw701 BUN 17 mg/dL 03/24/2015 Comp Metabolic Wpm147 B/C Ratio 23.9 Ratio 03/24/2015 Comp Metabolic Aas216 CALCIUM 10.0 mg/dL 03/24/2015 Comp Metabolic Hao303 ALK PHOS 86 U/L 03/24/2015 Comp Metabolic Pav792 AST(SGOT) 20 U/L 03/24/2015 Comp Metabolic Bqk683 ALT(SGPT) 13 U/L 03/24/2015 Comp Metabolic Brj990 BILI T 0.5 mg/dL 03/24/2015 Comp Metabolic Rcv218 ALBUMIN 4.8 g/dL 03/24/2015 Comp Metabolic Uvd899 TPRO 7.8 g/dL 03/24/2015 Comp Metabolic Vdn478 GLOB 3.0 g/dL 03/24/2015 Comp Metabolic Uqo082 A/G Ratio 1.6 Ratio 03/24/2015 Comp Metabolic Avi097 Osmo 272 mOsmo 03/24/2015 Tsh Ord6 hTSH [...] of Systems System Result Effective Dates Constitutional No recent illness 2017 Constitutional No [...] Result Effective Dates Notes Full Exam - General 1994 Constitutional general [...] 1994 Ears/Nose/Throat oral cavity/pharynx/larynx Overall: hypopharynx benign 04/15/2018 [...] Date TRIAMCINOLONE ACET INJ NOS CPT-4: J3301 03/25/2018 TOBACCO-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 FURNACE OPERATOR 3-[address]: 169901519 CPT-4: G0436 09/03/2016 TOBACCO-USE CYANIDE FURNACE OPERATOR 3-[address]: 595807594 CPT-4: G0436 05/07/2016 TOBACCO-USE CYANIDE FURNACE OPERATOR 3-[address]: 892364054 CPT-4: G0436 11/07/2015 TRIAMCINOLONE ACET INJ NOS CPT-4: J3301 03/22/2015 ROCEPHIN, PER 250 MG CPT-4: J0696 04/13/2014 TRIAMCINOLONE ACET INJ NOS CPT-4: J3301 04/13/2014 THER/PROPH/DIAG INJ SC/IM CPT-4: 01383 03/29/2014 TRIAMCINOLONE ACET INJ NOS CPT-4: J3301 03/29/2014 Vital Signs Date Vital 04/15/2018 Blood Pressure 1: 140/70 Code : 8480-6 BMI: 17.9 Code : 09863-6 Heart Rate 1 : 80 bpm Height: 5'7" SpO2: 94% Weight: 114 lbs 03/25/2018 Blood Pressure 1: 136/70 Code : 8480-6 BMI: 18.0 Code : 80079-7 Heart Rate 1 : 77 bpm Height: 5'7" SpO2: 98% Weight: 115 lbs 06/24/2017 Blood Pressure 1: 146/70 Code : 8480-6 BMI: 17.4 Code : 82203-6 Heart Rate 1 : 99 bpm Height: 5'7" SpO2: 96% Temperature: 37.6 (C) / 99.6 (F) Weight: 111 lbs 02/15/2017 Blood Pressure 1: 110/70 Code : 8480-6 Heart Rate 1: 77 bpm Height: SpO2: 95% Weight: 09/03/2016 Blood Pressure 1: 98/60 Code : 8480-6 BMI: 16.9 Code : 29595-9 Heart Rate 1 : 82 bpm Height: 5'7" SpO2: 97% Weight: 108 lbs 08/29/2016 Blood Pressure 1: 132/68 Code : 8480-6 BMI: 17.2 Code : 55897-3 Heart Rate 1 : 103 bpm Height: 5'7" SpO2: 95% Temperature: 37.3 (C) / 99.2 (F) Weight: 110 lbs 05/07/2016 Blood Pressure 1: 126/62 Code : 8480-6 BMI: 16.8 Code : 35103-1 Heart Rate 1 : 74 bpm Height: 5'7" SpO2: 98% Weight: 107 lbs 11/07/2015 Blood Pressure 1: 120/68 Code : 8480-6 BMI: 16.6 Code : 22170-0 Heart Rate 1 : 76 bpm Height: 5'7" SpO2: 98% Weight: 106 lbs 04/19/2015 Blood Pressure 1: 132/74 Code : 8480-6 BMI: 17.2 Code : 33544-3 Heart Rate 1 : 77 bpm Height: 5'7" SpO2: 98% Weight: 110 lbs 03/22/2015 Blood Pressure 1: 122/68 Code : 8480-6 BMI: 17.2 Code : 99590-1 Heart Rate 1 : 68 bpm Height: 5'7" SpO2: 97% Weight: 110 lbs 04/13/2014 Blood Pressure 1: 110/68 Code : 8480-6 BMI: 17.9 Code : 08137-5 Heart Rate 1 : 62 bpm Height: 5'7" Weight: 114 lbs 03/29/2014 Blood Pressure 1: 110/58 Code : 8480-6 BMI: 18.2 Code : 61999-9 Heart Rate 1 : 76 bpm Height: 5'7" Weight: 116 lbs 09/10/2013 Blood Pressure 1: 112/70 Code : 8480-6 BMI: 18.5 Code : 95087-4 Heart Rate 1 : 76 bpm Height: 5'7" Weight: 118 lbs 04/20/2013 Blood Pressure 1: 126/84 Code : 8480-6 BMI: 18.0 Code : 36361-7 Heart Rate 1 : 76 bpm Height: 5'7" Weight: 115 lbs Functional Status No Functional Status data History of Present Illness Symptom Name Status Result Effective Date Notes well woman exam (65+ years) Menstrual History [...] data Encounters Encounter Performer Location Codes Date ([id number]) 68634 EST. PATIENT, LEVEL IV Diagnosis: Encounter for screening mammogram for malignant neoplasm of breast[ ICD10: Z12.31] Diagnosis: Tobacco use[ICD10: Z72.0] Diagnosis: Other emphysema[ICD10: J43.8] Lottie Marshall MD, [facility] CPT- 4: 70982 04/15/2018 ([id number]) 25490 EST. PATIENT, LEVEL III Diagnosis: Otalgia, right ear[ICD10: H92.01] Diagnosis: Other allergic rhinitis[ICD10: J30.89] Cathy Marshall MD, [facility] CPT-4: 80185 03/25/2018 [id number] EST. PATIENT, LEVEL III Diagnosis: Acute laryngopharyngitis[ICD10: J06.0] Toma Marshall MD, [facility] CPT-4: 27346 06/24/2017 ([id number]) 94979 EST. PATIENT, LEVEL III Diagnosis: Periapical abscess without sinus[ICD10: K04.7] Cathy Marshall MD, [facility] CPT-4: 65917 02/15/2017 ([id number]) 54229 EST. PATIENT, LEVEL III Diagnosis: Cough[ICD10: R05] Diagnosis: Encounter for screening mammogram for malignant neoplasm of breast[ ICD10: Z12.31] Diagnosis: Tobacco use[ICD10: Z72.0] Lottie Marshall MD, [facility] CPT-4: 67303 09/03/2016 [id number] EST. PATIENT, LEVEL III Diagnosis: Acute laryngopharyngitis[ICD10: J06.0] Toma Marshall MD, [facility] CPT-4: 55839 08/29/2016 ([id number]) 45162 EST. PATIENT, LEVEL III Diagnosis: Cough[ICD10: R05] Diagnosis: Acute bronchitis due to other specified organisms[ICD10: J20.8] Diagnosis: Generalized enlarged lymph nodes[ICD10: R59.1] Diagnosis: Tobacco use[ICD10: Z72.0] Lottie Marshall MD, [facility] CPT-4: 28807 05/07/2016 ([id number]) 55830 EST. PATIENT, LEVEL III Diagnosis: Otalgia, bilateral[ICD10: H92.03] Diagnosis: Tobacco use[ICD10: Z72.0] Lottie Marshall MD, [facility] CPT-4: 67599 11/07/2015 ([id number]) Miscellaneous no charge Diagnosis: Otalgia, right ear[ICD10: H92.01] Lottie Marshall MD, [facility] CPT-4: 07355 04/22/2015 ([id number]) 74210 EST. PATIENT, LEVEL III Diagnosis: Tinnitus, bilateral[ICD10: H93.13] Diagnosis: Chronic obstructive pulmonary disease, unspecified[ICD10: J44.9] Lottie Marshall MD, [facility] CPT-4: 73869 04/19/2015 ([id number]) 38284 EST. PATIENT, LEVEL III Diagnosis: Allergic rhinitis, unspecified[ICD10: J30.9] Diagnosis: Otalgia, right ear[ICD10: H92.01] Cathy Marshall MD, [facility] CPT-4: 75283 03/22/2015 ([id number]) 50675 EST. PATIENT, LEVEL III Diagnosis: COUGH[ICD9: 786.2] Diagnosis: ACUTE BRONCHITIS[ICD9: 466.0] Diagnosis: ACUTE SINUSITIS[ICD9: 461.9] Cathy Marshall MD, [facility] CPT-4: 68841 04/13/2014 ([id number]) 99427 EST. PATIENT, LEVEL III Diagnosis: Right hip pain[ICD9: 719.45] Diagnosis: Shoulder pain, acute[ICD9: 719.41] Diagnosis: Sciatica[ICD9: 724.3] Lottie Marshall MD, [facility] CPT-4: 11447 03/29/[id number]) [id number] EST. PATIENT, LEVEL III Diagnosis: Rash[ICD9: 782.1] [facility] CPT-4: 15488 09/10/2013 Office outpatient new 30 minutes Diagnosis: Routine medical exam[ICD9: V70.0] Diagnosis: TOBACCO USE DISORDER[ICD9: 305.1] Lottie Marshall MD, [facility] CPT-4: 05754 04/20/2013 Plan of Care Planned Activity Notes Codes Status Date Visit Plan: screening CT of chest COPD - chronic problem for this patient. We have reviewed chronic treatment strategy, symptom control, and plans for acute exacerbations. No changes today to the current treatment plan as the patient is stable, monitor for acute changes. Tinnitus - monitor symptoms - continue with oil in ears. 04/15/2018 Appointment: [facility] Marshall [id number] ([facility] min) Complex 04/15/2018 Patient Education: Patient Medication Summary Completed 04/15/2018 Care Plan: SCREENINGMAMMOGRAPHYDIGITAL LOINC : 92968-8 Pending 04/15/2018 Care Plan: CT THORAX W/O DYE LOINC : 35682-1 Pending 04/15/2018 Visit Plan: Allergies - chronic [...] hearing eval 03/25/2018 Appointment: Cathy Sanchez [facility]el[phone] [place] (15 min) Moderate 03/25/2018 Patient Education: Patient Medication Summary Completed 03/25/2018 Visit Plan: URI - Pt advised to increase fluids, vitamin C. Discussed natural and expected course of this diagnosis and need to alert me if symptoms do not follow expected course, or if any worse. RX sent to patient' s pharmacy. 06/24/2017 Appointment: Toma Suarez WPtel: [address] [place], [place] [id number] (10 min) Simple 06/24/2017 Patient Education: Patient Medication Summary Completed 06/24/2017 Visit Plan: Tooth infection-will start abx-recommend dental evaluation -return to clinic if symptoms do not resolve or if any worse. Patient verbalized understanding of plan. 02/15/2017 Patient Education: Patient Medication Summary Completed 02/15/2017 Patient Education: Smoking and Tobacco Addiction Completed 02/15/2017 Appointment: Lottie Marshall [facility]Ptel[id number] (15 min) Moderate 11/26/2016 Visit Plan: Allergies [...] allergy spray. 09/03/2016 Appointment: Lottie Marshall WPtel[id number] (15 min) Moderate 09/03/2016 Patient Education: Patient Medication Summary Completed 09/03/2016 Patient Education: Smoking and Tobacco Addiction Completed 09/03/2016 Care Plan: SCREENINGMAMMOGRAPHYDIGITAL LOINC : 59187-5 Pending 09/03/2016 Visit Plan: URI - Pt advised to increase fluids, vitamin C. Discussed natural and expected course of this diagnosis and need to alert me if symptoms do not follow expected course, or if any worse. RX sent to patient' s pharmacy. 08/29/2016 Appointment: Toma Suarez WPtel: [id number] (15 min) Moderate 08/29/2016 Patient Education: Patient [...] improve or if they worsen. 03/29/2014 Appointment: Ltotie Marshall WPtel: [facility] sciatic pain Sick 03/29/2014 Patient Education: Patient Medication Summary Completed 03/29/2014 Visit Plan: Rash-bacterial culture today in the office-RX sent to patient's pharmacy and instructed on use-follow up Saturday with update on symtpoms. Patient verbalized understanding of plan. Recommend A&D ointment to multiple SK's when rash resolved. 09/10/2013 Appointment: Cathy Sanchez WPtel: [phone] [id number] Sick 09/10/2013 Patient Education: Patient Medication Summary Completed [...] check xray. 04/20/2013 Appointment: Lottie Marshall WPtel: [facility] New Patient 04/20/2013 Patient Education: Patient [...] do not improve or if they worsen. . 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 Tooth infection-will start abx-recommend dental evaluation [...]
--- OUTSIDE RECORDS SUMMARY | 2018-06-20 09:06 | XMS REPORT | CCD ---
Author Author Lottie Marshall MD, [facility] Address [address] [place] [address] Phone Care Team Providers Care Trichologist Name Role Phone PP Unavailable CCM Unavailable Summary Purpose Interface Exchange Insurance Providers Payer name Policy type / Coverage type Covered alliance party ID Effective Begin Date Effective End Date WPS Medicare Part B Medicare Part B [id number] Unknown Family history Daughter Diagnosis Age At [...] Currently employed 04/20/[address]: 00630285 Current every day smoker 04/20/2013 Number of years using tobacco Unknown 20 04/20/2013 Number of cigarettes/day Unknown 20 (One Pack) 04/20/[address]: 539720330 Never drinks alcohol 04/20/2013 Has the patient [...] Start Date Stop Date Status Fill Instructions Kenalog 40 mg/mL suspension for injection RxNorm: 3352132 1 Milliliter(s) Inj 03/25/2018 03/25/2018 Inactive naratriptan 2.5 mg tablet RxNorm: 477807 TAKE ONE TABLET BY MOUTH AT ONSET OF MIGRAINE. MAY REPEAT IN 4 HOURS. LIMIT 2 TABLETS PER 24 HOURS. 09/16/2017 No Stop Date Active prednisone 10 mg tablets in a dose pack RxNorm: 779642 1 Tablet(s) PO UD 06/24/2017 06/29/2017 Inactive 6-5-4-3-2-1 cefdinir 300 mg capsule RxNorm: 898766 1 Capsule(s) PO BID 09/201707/03/2017 Inactive Zithromax Z-Sukumar 250 mg tablet RxNorm: 603076 1 Tablet(s) PO UD 06/21/2017 06/25/2017 Inactive zpack Zithromax Z-Sukumar 250 mg tablet RxNorm: 188414 1 Tablet(s) PO UD 04/17/2017 04/21/2017 Inactive zpack amoxicillin 500 mg tablet RxNorm: 899725 1 Tablet(s) PO TID 02/21/2017 Inactive naratriptan 2.5 mg tablet RxNorm: 228613 Tablet(s) TAKE ONE TABLET BY MOUTH AT ONSET OF MIGRAINE, MAY REPEAT IN 4 HOURS. LIMIT 5/24 HOURS. 12/10/2016 12/11/2016 Inactive Zithromax Z-Sukumar 250 mg tablet RxNorm: 294545 1 Tablet(s) PO UD 08/29/2016 09/02/2016 Inactive zpack Elimite 5 % topical cream RxNorm: 948688 1 TOP time may repeat in two weeks 05/24/2016 06/22/2016 Inactive Elimite 5 % topical cream RxNorm: 262903 1 TOP time may repeat in two weeks 05/24/2016 05/23/2016 Inactive azithromycin 250 mg tablet RxNorm: 216205 1 Tablet(s) PO UD 2 pills on day #1, then one pill daily x 4 more days 05/07/2016 08/28/2016 Inactive naratriptan 2.5 mg tablet RxNorm: 494139 TAKE ONE TABLET BY MOUTH AT ONSET OF MIGRAINE, MAY REPEAT IN 4 HOURS. LIMIT 5/24 HOURS. 201503/09/2016 Inactive naratriptan 1 mg tablet RxNorm: 807349 Tablet(s) TAKE ONE TABLET BY MOUTH AT ONSET OF MIGRAINE, MAY REPEAT IN 4 HOURS IF MIGRAINE IS NOT RESOLVED...LIMIT 5 PER 25 HOURS 04/11/2015 06/23/2017 Inactive INSURANCE WILL NOT PAY FOR MORE THAN 9 PILLS PER RX prednisone 10 mg tablets in a dose pack RxNorm: 439374 1 Tablet(s) PO UD 03/28/2015 04/02/2015 Inactive 6-5-4-3-2-1 prednisone 10 mg tablets in a dose pack RxNorm: 866040 1 Tablet(s) PO UD 03/28/2015 03/27/2015 Inactive 6-5-4-3-2-1 Kenalog 40 mg/mL suspension for injection RxNorm: 6963189 Milliliter(s) Inj 03/22/2015 03/22/2015 Inactive Keflex 500 mg capsule RxNorm: 056259 1 Capsule(s) PO TID 201403/28/2015 Inactive naratriptan 2.5 mg tablet RxNorm: 514206 Tablet(s) PO PRN as needed 01/19/2015 03/07/2016 Inactive one at onset of migraine, may repeat in 4 hrs. limit 5 in 24 hr.s naratriptan 1 mg tablet RxNorm: 429851 Tablet(s) TAKE ONE TABLET BY MOUTH AT ONSET OF MIGRAINE, MAY REPEAT IN 4 HOURS IF MIGRAINE IS NOT RESOLVED...LIMIT 5 PER 25 HOURS 01/14/2015 01/29/2015 Inactive naratriptan 1 mg tablet RxNorm: 910514 Tablet(s) TAKE ONE TABLET BY MOUTH AT ONSET OF MIGRAINE, MAY REPEAT IN 4 HOURS IF MIGRAINE IS NOT RESOLVED...LIMIT 5 PER 25 HOURS 09/27/2014 10/12/2014 Inactive naratriptan 1 mg tablet RxNorm: 335515 TAKE ONE TABLET BY MOUTH AT ONSET OF MIGRAINE, MAY REPEAT IN 4 HOURS IF MIGRAINE IS NOT RESOLVED...LIMIT 5 PER 25 HOURS 07/16/2014 07/31/2014 Inactive ceftriaxone 500 mg solution for injection RxNorm: 566447 Inj 04/13/2014 Inactive albuterol sulfate 2.5 mg/3 mL (0.083 %) solution for nebulization RxNorm: 515230 3 Milliliter(s) INH Q4 PRN 04/13/2014 06/11/2014 Inactive Kenalog 40 mg/mL suspension for injection RxNorm: 4648112 Milliliter(s) Inj 04/13/2014 04/13/2014 Inactive Flonase 50 mcg/actuation nasal spray,suspension RxNorm: 686797 1 [place] NASAL daily 04/13/2014 04/26/2014 Inactive Zithromax Z-Sukumar 250 mg tablet RxNorm: 806136 1 Tablet(s) PO UD 04/13/2014 04/17/2014 Inactive zpack Kenalog 40 mg/mL suspension for injection RxNorm: 1985959 Milliliter(s) Inj 03/29/2014 03/29/2014 Inactive nystatin-triamcinolone 100,000 unit/g-0.1 % topical cream RxNorm: 6149295 1 Application TOP BID 09/10/2013 09/23/2013 Inactive Bactroban 2 % topical cream RxNorm: 019833 1 Application TOP BID 09/10/2013 09/23/2013 Inactive naratriptan 2.5 mg tablet RxNorm: 519414 Tablet(s) PO PRN 08/2001/18/2015 Inactive one at onset of migraine, may repeat in 4 hrs. limit 5 in 24 hr.s naratriptan 1 mg tablet RxNorm: 773562 1 Tablet(s) PO 201308/19/2013 Inactive one at onset of migraine may repeat in in 4 hr if migraine not resolved. limit 5mg in 25 hr. multivitamin capsule RxNorm: 1 Capsule(s) PO daily No Start Date Active Fish Oil 1,000 mg capsule RxNorm: 1 Capsule(s) PO daily No Start Date Active Calcium 600 + D(3) 600 mg (1,500 mg)-400 unit tablet RxNorm: 962443 2 Tablet(s) PO daily No Start Date Active naratriptan 1 mg tablet RxNorm: 802008 1 Tablet(s) PO No Start Date 07/06/2013 Inactive one at onset of migraine may repeat in naratriptan 2.5 mg tablet RxNorm: 669922 Tablet(s) PO PRN No Start Date 08/19/2013 Inactive Zomig 2.5 mg tablet RxNorm: 471926 Tablet(s) PO PRN No Start Date 08/19/2013 Inactive Daliresp 500 mcg tablet RxNorm: 7495654 1 Tablet(s) PO daily No Start Date 11/06/2015 Inactive Medication Administered Medication Codes Instructions Start Date Status Kenalog 40 mg/mL suspension for injection RxNorm: 8491031 1Milliliter 03/25/2018 No longer Active Kenalog 40 mg/mL suspension for injection RxNorm: 8622597 Milliliter 03/22/2015 No longer Active ceftriaxone 500 mg solution for injection RxNorm: 372796 04/13/2014 No longer Active Kenalog 40 mg/mL suspension for injection RxNorm: 0580173 Milliliter 04/13/2014 No longer Active Kenalog 40 mg/mL suspension for injection RxNorm: 9005412 Milliliter 03/29/2014 No longer Active Immunizations Vaccine [...] 60.8 % 04/15/2018 Cbc With Differential Ord2 Lymph% 31.0 % 04/15/2018 Cbc With Differential Ord2 MCV 93.6 fl 04/15/2018 Cbc With Differential Ord2 MCH 30.7 pg 04/15/2018 Cbc With Differential Ord2 Hitchcock% 6.7 % 04/15/2018 Cbc With Differential Ord2 MCHC 32.8 pg 04/15/2018 Cbc With Differential Ord2 Eos% 1.4 % 04/15/2018 Cbc With Differential Ord2 PLT 290 K/ul 04/15/2018 Cbc With Differential Ord2 Baso% 0.1 % 04/15/2018 Cbc With Differential Ord2 RDW 13.8 % 04/15/2018 Cbc With Differential Ord2 Neut ABS# 4.26 K/ul 04/15/2018 Cbc With Differential Ord2 Lymph ABS# 2.17 K/ul 04/15/2018 Cbc With Differential Ord2 [place]cock ABS# 0.5 K/ul 04/15/2018 Cbc With Differential Ord2 Eos ABS# 0.1 K/ul 04/15/2018 Cbc With Differential Ord2 Baso ABS# 0.0 K/ul 04/15/2018 Comp Metabolic Vyc360 NA 137 mEq/L 04/15/2018 Comp Metabolic Qcb576 K 4.5 mEq/L 04/15/2018 Comp Metabolic Qtb989 CL 100 mEq/L 04/15/2018 Comp Metabolic Fvd297 CO2 29.0 mEq/L 04/15/2018 Comp Metabolic Gfy422 ANION GAP 13 04/15/2018 Comp Metabolic Qnk611 GLUCOSE 93 mg/dL 04/15/2018 Comp Metabolic Hih107 Creat 0.8 mg/dL 04/15/2018 Comp Metabolic Hvb882 eGFR 79 ml/min/1.73m2 04/15/2018 Comp Metabolic Wxe754 BUN 21 mg/dL 04/15/2018 Comp Metabolic Bmh537 B/C Ratio 27.3 Ratio 04/15/2018 Comp Metabolic Nrf699 CALCIUM 9.5 mg/dL 04/15/2018 Comp Metabolic Ocx770 ALK PHOS 81 U/L 04/15/2018 Comp Metabolic Yfo678 AST(SGOT) 20 U/L 04/15/2018 Comp Metabolic Ywn252 ALT(SGPT) 12 U/L 04/15/2018 Comp Metabolic Xou696 BILI T 0.6 mg/dL 04/15/2018 Comp Metabolic Qbk763 ALBUMIN 4.3 g/dL 04/15/2018 Comp Metabolic Wsr077 TPRO 7.0 g/dL 04/15/2018 Comp Metabolic Bom347 GLOB 2.7 g/dL 04/15/2018 Comp Metabolic Yqt052 A/G Ratio 1.6 Ratio 04/15/2018 Comp Metabolic Zsp370 Osmo 276 mOsmo 04/15/2018 Lipid Ord30 CHOL 205 mg/dL 04/15/2018 Lipid Ord30 HDL 51.0 mg/dl 04/15/2018 Lipid Ord30 TRIG 79 mg/dL 04/15/2018 Lipid Ord30 LDL 138 mg/dL 04/15/2018 Lipid Ord30 C/HDL 4.0 Ratio 04/15/2018 Vitamin D 25 Oh Oea3448 VITAMIN D, 25 HYDROXY 46.83 ng/mL Cbc [...] 33.5 % 10/18/2015 Cbc With Differential Ord2 Hitchcock% 6.0 % 10/18/2015 Cbc With Differential Ord2 MCH 30.5 pg 10/18/2015 Cbc With Differential Ord2 MCHC 32.4 pg 10/18/2015 Cbc With Differential Ord2 Eos% 5.5 % 10/18/2015 Cbc With Differential Ord2 PLT 286 K/ul 10/18/2015 Cbc With Differential Ord2 Baso% 0.4 % 10/18/2015 Cbc With Differential Ord2 Neut ABS# 2.80 K/ul 10/18/2015 Cbc With Differential Ord2 RDW 14.0 % 10/18/2015 Cbc With Differential Ord2 Lymph ABS# 1.72 K/ul 10/18/2015 Cbc With Differential Ord2 [place]cock ABS# 0.3 K/ul 10/18/2015 Cbc With Differential Ord2 Eos ABS# 0.3 K/ul 10/18/2015 Cbc With Differential Ord2 Baso ABS# 0.0 K/ul 10/18/2015 Comp Metabolic Ufp187 NA 138 mEq/L 10/18/2015 Comp Metabolic Iws492 K 4.4 mEq/L 10/18/2015 Comp Metabolic Rbk348 CL 103 mEq/L 10/18/2015 Comp Metabolic Fed076 CO2 30.0 mEq/L 10/18/2015 Comp Metabolic Oew230 ANION GAP 9 10/18/2015 Comp Metabolic Seq842 GLUCOSE 93 mg/dL 10/18/2015 Comp Metabolic Fki973 Creat 0.7 mg/dL 10/18/2015 Comp Metabolic Psh797 eGFR 90 ml/min/1.73m2 10/18/2015 Comp Metabolic Zjc623 BUN 19 mg/dL 10/18/2015 Comp Metabolic Ulc777 B/C Ratio 27.5 Ratio 10/18/2015 Comp Metabolic Gtx895 CALCIUM 9.3 mg/dL 10/18/2015 Comp Metabolic Rlx167 ALK PHOS 95 U/L 10/18/2015 Comp Metabolic Bdm811 AST(SGOT) 17 U/L 10/18/2015 Comp Metabolic Wok073 ALT(SGPT) 10 U/L 10/18/2015 Comp Metabolic Fbi143 BILI T 0.5 mg/dL 10/18/2015 Comp Metabolic Kox332 ALBUMIN 4.4 g/dL 10/18/2015 Comp Metabolic Tzy371 TPRO 7.2 g/dL 10/18/2015 Comp Metabolic Tgs771 GLOB 2.8 g/dL 10/18/2015 Comp Metabolic Axw134 A/G Ratio 1.6 Ratio 10/18/2015 Comp Metabolic Pia314 Osmo 278 mOsmo 10/18/2015 Lipid Ord30 CHOL 201 mg/dL 10/18/2015 Lipid Ord30 HDL 45.0 mg/dl 10/18/2015 Lipid Ord30 TRIG 122 mg/dL 10/18/2015 Lipid Ord30 LDL 132 mg/dL 10/18/2015 Lipid Ord30 C/HDL 4.5 Ratio 10/18/2015 Tsh Ord6 hTSH II 1.46 uIU/mL 10/18/2015 Vitamin D 25 Oh Epp3514 VITAMIN D, 25 HYDROXY 42.46 ng/mL Comp Metabolic Ezr331 NA 135 mEq/L 03/24/2015 Comp Metabolic Jho275 K 4.1 mEq/L 03/24/2015 Comp Metabolic Kbq418 CL 103 mEq/L 03/24/2015 Comp Metabolic Nah034 CO2 28.0 mEq/L 03/24/2015 Comp Metabolic Uke796 ANION GAP 8 03/24/2015 Comp Metabolic Avv732 GLUCOSE 101 mg/dL 03/24/2015 Comp Metabolic Pbg747 Creat 0.7 mg/dL 03/24/2015 Comp Metabolic Brp302 eGFR 87 ml/min/1.73m2 03/24/2015 Comp Metabolic Xkm053 BUN 17 mg/dL 03/24/2015 Comp Metabolic Krd635 B/C Ratio 23.9 Ratio 03/24/2015 Comp Metabolic Woz497 CALCIUM 10.0 mg/dL 03/24/2015 Comp Metabolic Emj557 ALK PHOS 86 U/L 03/24/2015 Comp Metabolic Vyk292 AST(SGOT) 20 U/L 03/24/2015 Comp Metabolic Ynv109 ALT(SGPT) 13 U/L 03/24/2015 Comp Metabolic Bkr334 BILI T 0.5 mg/dL 03/24/2015 Comp Metabolic Mcd729 ALBUMIN 4.8 g/dL 03/24/2015 Comp Metabolic Eag372 TPRO 7.8 g/dL 03/24/2015 Comp Metabolic Xze236 GLOB 3.0 g/dL 03/24/2015 Comp Metabolic Igm175 A/G Ratio 1.6 Ratio 03/24/2015 Comp Metabolic Ggf740 Osmo 272 mOsmo 03/24/2015 Tsh Ord6 hTSH [...] hygiene 04/20/2013 None Full Exam - General 1994 Eyes conjunctiva /eyelids Overall: conjunctiva clear 04/20/2013 None Full Exam - General 1995 Eyes conjunctiva /eyelids Overall: cornea clear 04/20/2013 None Full Exam - General 1994 Eyes conjunctiva /eyelids Overall: eyelids normal 04/20/2013 [...] abnormalities 04/20/2013 None Full Exam - General 1994 Neurologic deep tendon reflexes Overall: deep tendon reflexes intact 04/20/2013 None Full Exam - General 1994 Neurologic [...] General 1995 Musculoskeletal head and neck Overall: head atraumatic 04/20/2013 None Full Exam - General 1995 Musculoskeletal spine, ribs and pelvis Overall: good posture 04/20/2013 None Full Exam - General 1995 Musculoskeletal spine, ribs and pelvis Overall: sacroiliac joint benign 04/20/2013 None Full Exam - General 1995 Musculoskeletal spine, ribs and pelvis Overall: spine [...] ACET INJ NOS CPT-4: J3301 03/25/2018 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-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 3-[address]: 933374974 CPT-4: G0436 09/03/2016 TOBACCO-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 3-[address]: 677013806 CPT-4: G0436 05/07/2016 TOBACCO-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 3-[address]: 230470994 CPT-4: G0436 11/07/2015 TRIAMCINOLONE ACET INJ NOS CPT-4: J3301 03/22/2015 ROCEPHIN, PER 250 MG CPT-4: J0696 04/13/2014 TRIAMCINOLONE ACET INJ NOS CPT-4: J3301 04/13/2014 THER/PROPH/DIAG INJ SC/IM CPT-4: 84734 03/29/2014 TRIAMCINOLONE ACET INJ NOS CPT-4: J3301 03/29/2014 Vital Signs Date Vital 04/15/2018 Blood Pressure 1: 140/70 Code : 8480-6 BMI: 17.9 Code : 16063-3 Heart Rate 1 : 80 bpm Height: 5'7" SpO2: 94% Weight: 114 lbs 03/25/2018 Blood Pressure 1: 136/70 Code : 8480-6 BMI: 18.0 Code : 60418-3 Heart Rate 1 : 77 bpm Height: 5'7" SpO2: 98% Weight: 115 lbs 06/24/2017 Blood Pressure 1: 146/70 Code : 8480-6 BMI: 17.4 Code : 87935-1 Heart Rate 1 : 99 bpm Height: 5'7" SpO2: 96% Temperature: 37.6 (C) / 99.6 (F) Weight: 111 lbs 02/15/2017 Blood Pressure 1: 110/70 Code : 8480-6 Heart Rate 1: 77 bpm Height: SpO2: 95% Weight: 09/03/2016 Blood Pressure 1: 98/60 Code : 8480-6 BMI: 16.9 Code : 85623-3 Heart Rate 1 : 82 bpm Height: 5'7" SpO2: 97% Weight: 108 lbs 08/29/2016 Blood Pressure 1: 132/68 Code : 8480-6 BMI: 17.2 Code : 04627-5 Heart Rate 1 : 103 bpm Height: 5'7" SpO2: 95% Temperature: 37.3 (C) / 99.2 (F) Weight: 110 lbs 05/07/2016 Blood Pressure 1: 126/62 Code : 8480-6 BMI: 16.8 Code : 63542-8 Heart Rate 1 : 74 bpm Height: 5'7" SpO2: 98% Weight: 107 lbs 11/07/2015 Blood Pressure 1: 120/68 Code : 8480-6 BMI: 16.6 Code : 28831-4 Heart Rate 1 : 76 bpm Height: 5'7" SpO2: 98% Weight: 106 lbs 04/19/2015 Blood Pressure 1: 132/74 Code : 8480-6 BMI: 17.2 Code : 83837-4 Heart Rate 1 : 77 bpm Height: 5'7" SpO2: 98% Weight: 110 lbs 03/22/2015 Blood Pressure 1: 122/68 Code : 8480-6 BMI: 17.2 Code : 10605-7 Heart Rate 1 : 68 bpm Height: 5'7" SpO2: 97% Weight: 110 lbs 04/13/2014 Blood Pressure 1: 110/68 Code : 8480-6 BMI: 17.9 Code : 36009-6 Heart Rate 1 : 62 bpm Height: 5'7" Weight: 114 lbs 03/29/2014 Blood Pressure 1: 110/58 Code : 8480-6 BMI: 18.2 Code : 02358-0 Heart Rate 1 : 76 bpm Height: 5'7" Weight: 116 lbs 09/10/2013 Blood Pressure 1: 112/70 Code : 8480-6 BMI: 18.5 Code : 50384-1 Heart Rate 1 : 76 bpm Height: 5'7" Weight: 118 lbs 04/20/2013 Blood Pressure 1: 126/84 Code : 8480-6 BMI: 18.0 Code : 64303-9 Heart Rate 1 : 76 bpm Height: [...] ear out helped tinnitus Onset of Symptom /2 months ago 04/19/2015 None tinnitus Location in [...] data Encounters Encounter Performer Location Codes Date [id number]) 53020 EST. PATIENT, LEVEL IV Diagnosis: Encounter for screening mammogram for malignant neoplasm of breast[ ICD10: Z12.31] Diagnosis: Tobacco use[ICD10: Z72.0] Diagnosis: Other emphysema[ICD10: J43.8] Lottie Marshall MD, [facility] CPT- 4: 18487 04/15/2018 ([id number]) 82474 EST. PATIENT, LEVEL III Diagnosis: Otalgia, right ear[ICD10: H92.01] Diagnosis: Other allergic rhinitis[ICD10: J30.89] Cathy Marshall MD, [facility] CPT-4: 40895 03/25/2018 56004 EST. PATIENT, LEVEL III Diagnosis: Acute laryngopharyngitis[ICD10: J06.0] Toma Marshall MD, [facility] CPT-4: 48401 06/24/2017 ([id number]) 60239 EST. PATIENT, LEVEL III Diagnosis: Periapical abscess without sinus[ICD10: K04.7] Cathy Marshall MD, [facility] CPT-4: 20039 02/15/2017 ([id number]) 62391 EST. PATIENT, LEVEL III Diagnosis: Cough[ICD10: R05] Diagnosis: Encounter for screening mammogram for malignant neoplasm of breast[ ICD10: Z12.31] Diagnosis: Tobacco use[ICD10: Z72.0] Lottie Marshall MD, [facility] CPT-4: 63952 09/03/2016 [id number] EST. PATIENT, LEVEL III Diagnosis: Acute laryngopharyngitis[ICD10: J06.0] Toma Marshall MD, [facility] CPT-4: 81182 08/29/2016 ([id number]) 09104 EST. PATIENT, LEVEL III Diagnosis: Cough[ICD10: R05] Diagnosis: Acute bronchitis due to other specified organisms[ICD10: J20.8] Diagnosis: Generalized enlarged lymph nodes[ICD10: R59.1] Diagnosis: Tobacco use[ICD10: Z72.0] Lottie Marshall MD, [facility] CPT-4: 23739 05/07/2016 ([id number]) 10220 EST. PATIENT, LEVEL III Diagnosis: Otalgia, bilateral[ICD10: H92.03] Diagnosis: Tobacco use[ICD10: Z72.0] Lottie Marshall MD, [facility] CPT-4: 80746 11/07/2015 ([id number]) Miscellaneous no charge Diagnosis: Otalgia, right ear[ICD10: H92.01] Lottie Marshall MD, [facility] CPT-4: 36842 04/22/2015 ([id number]) 85952 EST. PATIENT, LEVEL III Diagnosis: Tinnitus, bilateral[ICD10: H93.13] Diagnosis: Chronic obstructive pulmonary disease, unspecified[ICD10: J44.9] Lottie Marshall MD, [facility] CPT-4: 60134 04/19/2015 ([id number]) 65003 EST. PATIENT, LEVEL III Diagnosis: Allergic rhinitis, unspecified[ICD10: J30.9] Diagnosis: Otalgia, right ear[ICD10: H92.01] Cathy Marshall MD, [facility] CPT-4: 17556 03/22/2015 ([id number]) 56961 EST. PATIENT, LEVEL III Diagnosis: COUGH[ICD9: 786.2] Diagnosis: ACUTE BRONCHITIS[ICD9: 466.0] Diagnosis: ACUTE SINUSITIS[ICD9: 461.9] Cathy Marshall MD, [facility] CPT-4: 55934 04/13/2014 ([id number]) 95790 EST. PATIENT, LEVEL III Diagnosis: Right hip pain[ICD9: 719.45] Diagnosis: Shoulder pain, acute[ICD9: 719.41] Diagnosis: Sciatica[ICD9: 724.3] [facility] CPT-4: 95604 03/29/2014 ([id number] 72737 EST. PATIENT, LEVEL III Diagnosis: Rash[ICD9: 782.1] [facility] CPT-4: 06085 09/10/2013 Office outpatient new 30 minutes Diagnosis: Routine medical exam[ICD9: V70.0] Diagnosis: TOBACCO USE DISORDER[ICD9: 305.1] Lottie Marshall MD, [facility] CPT-4: 76976 04/20/2013 Plan of Care Planned Activity Notes [...] - continue with oil in ears. 04/15/2018 Patient Education: Patient Medication Summary Completed 04/15/2018 Care Plan: SCREENINGMAMMOGRAPHYDIGITAL LOINC : 22717-3 Pending 04/15/2018 Care Plan: CT THORAX W/O DYE LOINC : 27422-1 Pending 04/15/2018 Visit Plan: Allergies - chronic [...] hearing eval 03/25/2018 Appointment: Cathy Sanchez WPtel: [phone] (15 min) Moderate 03/25/2018 Patient Education: Patient Medication Summary Completed 03/25/2018 Visit Plan: URI - Pt advised to increase fluids, vitamin C. Discussed natural and expected course of this diagnosis and need to alert me if symptoms do not follow expected course, or if any worse. RX sent to patient' s pharmacy. 06/24/2017 Appointment: Toma Suarez WPtel: [address] [place], [place] [phone] (10 min) Simple 06/24/2017 Patient Education: Patient Medication Summary Completed 06/24/2017 Visit Plan: Tooth infection-will start abx-recommend dental evaluation -return to clinic if symptoms do not resolve or if any worse. Patient verbalized understanding of plan. 02/15/2017 Patient Education: Patient Medication Summary Completed 02/15/2017 Patient Education: Smoking and Tobacco Addiction Completed 02/15/2017 Appointment: Lottie Marshall WPtel: [facility]9 [facility] (15 min) Moderate 11/26/2016 Visit Plan: Allergies [...] allergy spray. 09/03/2016 Appointment: Lottie Marshall WPtel: [facility]8 [facility] (15 min) Moderate 09/03/2016 Patient Education: Patient Medication Summary Completed 09/03/2016 Patient Education: Smoking and Tobacco Addiction Completed 09/03/2016 Care Plan: SCREENINGMAMMOGRAPHYDIGITAL LOINC : 17431-9 Pending 09/03/2016 Visit Plan: URI - Pt advised to increase fluids, vitamin C. Discussed natural and expected course of this diagnosis and need to alert me if symptoms do not follow expected course, or if any worse. RX sent to patient' s pharmacy. 08/29/2016 Appointment: Toma Suarez WPtel: [facility]4 [facility] (15 min) Moderate 08/29/2016 Patient Education: Patient [...] they worsen. 03/29/2014 Appointment: Lottie Marshall WPtel: [address] [place], [place] [address] sciatic pain Sick 03/29/2014 Patient Education: Patient Medication Summary Completed 03/29/2014 Visit Plan: Rash-bacterial culture today in the office-RX sent to patient's pharmacy and instructed on use-follow up Saturday with update on symtpoms. Patient verbalized understanding of plan. Recommend A&D ointment to multiple SK's when rash resolved. 09/10/2013 Appointment: Cathy Sanchez [facility]Ptel[facility] [phone] [facility] Sick 09/10/2013 Patient Education: Patient Medication Summary [...] xray. 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 Tooth infection-will start abx-recommend [...]
--- OUTSIDE RECORDS SUMMARY | 2018-06-20 09:07 | XMS REPORT | CCD ---
Author Author Lottie Marshall MD, [facility] Address [address] [place] [address] Phone Care Team Providers Care Child Care Group Leader Name Role Phone PP Unavailable CCM Unavailable Summary Purpose Interface Exchange Insurance Providers Payer name Policy type / Coverage type Covered green party ID Effective Begin Date Effective End Date WPS Medicare Part B Medicare Part B [id number] Unknown Family history Daughter Diagnosis Age At [...] Currently employed 04/20/[address]: 31531536 Current every day smoker 04/20/2013 Number of years using tobacco Unknown 20 04/20/2013 Number of cigarettes/day Unknown 20 (One Pack) 04/20/[address]: 943846060 Never drinks alcohol 04/20/2013 Has the patient [...] Codes Condition Status Onset Date Resolved Date Otalgia, right ear ICD -9: 388.70 ICD-10: H92.01 Active 04/21/2015 Unknown Other allergic rhinitis ICD-9: 477.8 ICD-10: J30.89 Active 03/25/2018 Unknown Acute laryngopharyngitis ICD-9: 465.0 ICD-10: J06.0 Active 08/29/2016 Unknown Periapical abscess without sinus ICD-9: 522.5 ICD-10: K04.7 Active 02/15/2017 Unknown Cough ICD-9: 786.2 ICD-10: R05 Active 04/13/2014 Unknown Encounter for screening mammogram for malignant neoplasm of breast ICD-9: V76.12 ICD-10: Z12.31 Active 09/03/2016 Unknown Tobacco use ICD-9: 305.1 ICD-10: Z72.0 Active 04/20/2013 Unknown Acute bronchitis due to other specified [...] Problems Condition Codes Effective Dates Condition Status Otalgia, right ear ICD -9: 388.70 ICD-10: H92.01 04/21/2015 Active Other allergic rhinitis ICD-9: 477.8 ICD-10: J30.89 03/25/2018 Active Acute laryngopharyngitis ICD-9: 465.0 ICD-10: J06.0 08/29/2016 Active Periapical abscess without sinus ICD-9: 522.5 ICD-10: K04.7 02/15/2017 Active Cough ICD-9: 786.2 ICD-10: R05 04/13/2014 Active Encounter for screening mammogram for malignant neoplasm of breast ICD-9: V76.12 ICD-10: Z12.31 09/03/2016 Active Tobacco use ICD-9: 305.1 ICD-10: Z72.0 04/20/2013 Active Acute bronchitis due to other specified [...] Kenalog 40 mg/mL suspension for injection RxNorm: 8629120 1 Milliliter(s) Inj 03/25/2018 03/25/2018 Inactive naratriptan 2.5 mg tablet RxNorm: 038657 TAKE ONE TABLET BY MOUTH AT ONSET OF MIGRAINE. MAY REPEAT IN 4 HOURS. LIMIT 2 TABLETS PER 24 HOURS. 09/16/2017 No Stop Date Active prednisone 10 mg tablets in a dose pack RxNorm: 457088 1 Tablet(s) PO UD 06/24/2017 06/29/2017 Inactive 6-5-4-3-2-1 cefdinir 300 mg capsule RxNorm: 126377 1 Capsule(s) PO BID 09/201707/03/2017 Inactive Zithromax Z-Sukumar 250 mg tablet RxNorm: 514093 1 Tablet(s) PO UD 06/21/2017 06/25/2017 Inactive zpack Zithromax Z-Sukumar 250 mg tablet RxNorm: 050199 1 Tablet(s) PO UD 04/17/2017 04/21/2017 Inactive zpack amoxicillin 500 mg tablet RxNorm: 641871 1 Tablet(s) PO TID 02/21/2017 Inactive naratriptan 2.5 mg tablet RxNorm: 985407 Tablet(s) TAKE ONE TABLET BY MOUTH AT ONSET OF MIGRAINE, MAY REPEAT IN 4 HOURS. LIMIT 5/24 HOURS. 12/10/2016 12/11/2016 Inactive Zithromax Z-Sukumar 250 mg tablet RxNorm: 802394 1 Tablet(s) PO UD 08/29/2016 09/02/2016 Inactive zpack Elimite 5 % topical cream RxNorm: 566804 1 TOP time may repeat in two weeks 05/24/2016 06/22/2016 Inactive Elimite 5 % topical cream RxNorm: 642112 1 TOP time may repeat in two weeks 05/24/2016 05/23/2016 Inactive azithromycin 250 mg tablet RxNorm: 724997 1 Tablet(s) PO UD 2 pills on day #1, then one pill daily x 4 more days 05/07/2016 08/28/2016 Inactive naratriptan 2.5 mg tablet RxNorm: 713107 TAKE ONE TABLET BY MOUTH AT ONSET OF MIGRAINE, MAY REPEAT IN 4 HOURS. LIMIT 5/24 HOURS. 201503/09/2016 Inactive naratriptan 1 mg tablet RxNorm: 943289 Tablet(s) TAKE ONE TABLET BY MOUTH AT ONSET OF MIGRAINE, MAY REPEAT IN 4 HOURS IF MIGRAINE IS NOT RESOLVED...LIMIT 5 PER 25 HOURS 04/11/2015 06/23/2017 Inactive INSURANCE WILL NOT PAY FOR MORE THAN 9 PILLS PER RX prednisone 10 mg tablets in a dose pack RxNorm: 725864 1 Tablet(s) PO UD 03/28/2015 04/02/2015 Inactive 6-5-4-3-2-1 prednisone 10 mg tablets in a dose pack RxNorm: 000323 1 Tablet(s) PO UD 03/28/2015 03/27/2015 Inactive 6-5-4-3-2-1 Kenalog 40 mg/mL suspension for injection RxNorm: 6771695 Milliliter(s) Inj 03/22/2015 03/22/2015 Inactive Keflex 500 mg capsule RxNorm: 010872 1 Capsule(s) PO TID 201403/28/2015 Inactive naratriptan 2.5 mg tablet RxNorm: 394258 Tablet(s) PO PRN as needed 01/19/2015 03/07/2016 Inactive one at onset of migraine, may repeat in 4 hrs. limit 5 in 24 hr.s naratriptan 1 mg tablet RxNorm: 388522 Tablet(s) TAKE ONE TABLET BY MOUTH AT ONSET OF MIGRAINE, MAY REPEAT IN 4 HOURS IF MIGRAINE IS NOT RESOLVED...LIMIT 5 PER 25 HOURS 01/14/2015 01/29/2015 Inactive naratriptan 1 mg tablet RxNorm: 666224 Tablet(s) TAKE ONE TABLET BY MOUTH AT ONSET OF MIGRAINE, MAY REPEAT IN 4 HOURS IF MIGRAINE IS NOT RESOLVED...LIMIT 5 PER 25 HOURS 09/27/2014 10/12/2014 Inactive naratriptan 1 mg tablet RxNorm: 349889 TAKE ONE TABLET BY MOUTH AT ONSET OF MIGRAINE, MAY REPEAT IN 4 HOURS IF MIGRAINE IS NOT RESOLVED...LIMIT 5 PER 25 HOURS 07/16/2014 07/31/2014 Inactive ceftriaxone 500 mg solution for injection RxNorm: 171638 Inj 04/13/2014 Inactive albuterol sulfate 2.5 mg/3 mL (0.083 %) solution for nebulization RxNorm: 815417 3 Milliliter(s) INH Q4 PRN 04/13/2014 06/11/2014 Inactive Kenalog 40 mg/mL suspension for injection RxNorm: 1313341 Milliliter(s) Inj 04/13/2014 04/13/2014 Inactive Flonase 50 mcg/actuation nasal spray,suspension RxNorm: 087816 1 [place] NASAL daily 04/13/2014 04/26/2014 Inactive Zithromax Z-Sukumar 250 mg tablet RxNorm: 055792 1 Tablet(s) PO UD 04/13/2014 04/17/2014 Inactive zpack Kenalog 40 mg/mL suspension for injection RxNorm: 9824451 Milliliter(s) Inj 03/29/2014 03/29/2014 Inactive nystatin-triamcinolone 100,000 unit/g-0.1 % topical cream RxNorm: 9766869 1 Application TOP BID 09/10/2013 09/23/2013 Inactive Bactroban 2 % topical cream RxNorm: 314318 1 Application TOP BID 09/10/2013 09/23/2013 Inactive naratriptan 2.5 mg tablet RxNorm: 956157 Tablet(s) PO PRN 08/2001/18/2015 Inactive one at onset of migraine, may repeat in 4 hrs. limit 5 in 24 hr.s naratriptan 1 mg tablet RxNorm: 038435 1 Tablet(s) PO 201308/19/2013 Inactive one at onset of migraine may repeat in in 4 hr if migraine not resolved. limit 5mg in 25 hr. multivitamin capsule RxNorm: 1 Capsule(s) PO daily No Start Date Active Fish Oil 1,000 mg capsule RxNorm: 1 Capsule(s) PO daily No Start Date Active Calcium 600 + D(3) 600 mg (1,500 mg)-400 unit tablet RxNorm: 355163 2 Tablet(s) PO daily No Start Date Active naratriptan 1 mg tablet RxNorm: 323992 1 Tablet(s) PO No Start Date 07/06/2013 Inactive one at onset of migraine may repeat in naratriptan 2.5 mg tablet RxNorm: 234009 Tablet(s) PO PRN No Start Date 08/19/2013 Inactive Zomig 2.5 mg tablet RxNorm: 222833 Tablet(s) PO PRN No Start Date 08/19/2013 Inactive Daliresp 500 mcg tablet RxNorm: 7518070 1 Tablet(s) PO daily No Start Date 11/06/2015 Inactive Medication Administered Medication Codes Instructions Start Date Status Kenalog 40 mg/mL suspension for injection RxNorm: 7452294 1Milliliter 03/25/2018 No longer Active Kenalog 40 mg/mL suspension for injection RxNorm: 6684349 Milliliter 03/22/2015 No longer Active ceftriaxone 500 mg solution for injection RxNorm: 436356 04/13/2014 No longer Active Kenalog 40 mg/mL suspension for injection RxNorm: 3853346 Milliliter 04/13/2014 No longer Active Kenalog 40 mg/mL suspension for injection RxNorm: 1666102 Milliliter 03/29/2014 No longer Active Immunizations Vaccine Codes Date Status PPD Unknown 04/22/2015 completed Assessments Condition Codes Effective Dates Otalgia, right ear ICD-10: H92.01 ICD-9: 388.70 03/25/2018 Other allergic rhinitis ICD-10: J30.89 ICD-9: 477.8 03/25/2018 Acute laryngopharyngitis ICD-10: J06.0 ICD-9: 465.0 06/24/2017 Periapical abscess without sinus ICD-10: K04.7 ICD-9: 522.5 02/15/2017 Tobacco use ICD-10: Z72.0 ICD-9: 305.1 09/03/2016 Encounter for screening mammogram for malignant neoplasm of breast ICD-10: Z12.31 ICD-9: V76.12 09/03/2016 Cough ICD-10: R05 ICD-9: 786.2 09/03/2016 Acute [...] Visit Reason For Visit Effective Dates Notes tinnitus 03/25/2018 cough 06/24/2017 dental pain 02/15/2017 cough 09/03/2016 cough 08/29/2016 sore throat 05/07/2016 tinnitus 11/07/2015 tinnitus 04/19/2015 tinnitus 03/22/2015 sinus congestion 04/13/2014 shoulder pain 03/29/2014 right shoulder skin lesion 09/10/2013 headache 04/20/2013 Results Observation Observation Code Item Item Code Result Date Vitamin D 25 Oh [id number] VITAMIN D, 25 HYDROXY 46.83 ng/mL Cbc [...] 30.5 pg 10/18/2015 Cbc With Differential Ord2 [place]% 6.0 % 10/18/2015 Cbc With Differential Ord2 MCHC 32.4 pg 10/18/2015 Cbc With Differential Ord2 Eos% 5.5 % 10/18/2015 Cbc With Differential Ord2 PLT 286 K/ul 10/18/2015 Cbc With Differential Ord2 Baso% 0.4 % 10/18/2015 Cbc With Differential Ord2 RDW 14.0 % 10/18/2015 Cbc With Differential Ord2 Neut ABS# 2.80 K/ul 10/18/2015 Cbc With Differential Ord2 Lymph ABS# 1.72 K/ul 10/18/2015 Cbc With Differential Ord2 [place] ABS# 0.3 K/ul 10/18/2015 Cbc With Differential Ord2 Eos ABS# 0.3 K/ul 10/18/2015 Cbc With Differential Ord2 Baso ABS# 0.0 K/ul 10/18/2015 Comp Metabolic Efw990 NA 138 mEq/L 10/18/2015 Comp Metabolic Uob464 K 4.4 mEq/L 10/18/2015 Comp Metabolic Yli691 CL 103 mEq/L 10/18/2015 Comp Metabolic Jeg303 CO2 30.0 mEq/L 10/18/2015 Comp Metabolic Khr018 ANION GAP 9 10/18/2015 Comp Metabolic Zwo058 GLUCOSE 93 mg/dL 10/18/2015 Comp Metabolic Uzl539 Creat 0.7 mg/dL 10/18/2015 Comp Metabolic Hlv251 eGFR 90 ml/min/1.73m2 10/18/2015 Comp Metabolic Awz446 BUN 19 mg/dL 10/18/2015 Comp Metabolic Qdr217 B/C Ratio 27.5 Ratio 10/18/2015 Comp Metabolic Fct084 CALCIUM 9.3 mg/dL 10/18/2015 Comp Metabolic Qoj591 ALK PHOS 95 U/L 10/18/2015 Comp Metabolic Piz347 AST(SGOT) 17 U/L 10/18/2015 Comp Metabolic Klk219 ALT(SGPT) 10 U/L 10/18/2015 Comp Metabolic Nle479 BILI T 0.5 mg/dL 10/18/2015 Comp Metabolic Rdw700 ALBUMIN 4.4 g/dL 10/18/2015 Comp Metabolic Ghl801 TPRO 7.2 g/dL 10/18/2015 Comp Metabolic Fny323 GLOB 2.8 g/dL 10/18/2015 Comp Metabolic Pmq591 A/G Ratio 1.6 Ratio 10/18/2015 Comp Metabolic Yrk167 Osmo 278 mOsmo 10/18/2015 Lipid Ord30 CHOL 201 mg/dL 10/18/2015 Lipid Ord30 HDL 45.0 mg/dl 10/18/2015 Lipid Ord30 TRIG 122 mg/dL 10/18/2015 Lipid Ord30 LDL 132 mg/dL 10/18/2015 Lipid Ord30 C/HDL 4.5 Ratio 10/18/2015 Tsh Ord6 hTSH II 1.46 uIU/mL 10/18/2015 Vitamin D 25 Oh Div8739 VITAMIN D, 25 HYDROXY 42.46 ng/mL Comp Metabolic Ebi086 NA 135 mEq/L 03/24/2015 Comp Metabolic Znw460 K 4.1 mEq/L 03/24/2015 Comp Metabolic Zzv997 CL 103 mEq/L 03/24/2015 Comp Metabolic Xbe481 CO2 28.0 mEq/L 03/24/2015 Comp Metabolic Qbw500 ANION GAP 8 03/24/2015 Comp Metabolic Gyl427 GLUCOSE 101 mg/dL 03/24/2015 Comp Metabolic Ohn216 Creat 0.7 mg/dL 03/24/2015 Comp Metabolic Bgr424 eGFR 87 ml/min/1.73m2 03/24/2015 Comp Metabolic Ixk048 BUN 17 mg/dL 03/24/2015 Comp Metabolic Yyq616 B/C Ratio 23.9 Ratio 03/24/2015 Comp Metabolic Rvm060 CALCIUM 10.0 mg/dL 03/24/2015 Comp Metabolic Iqk217 ALK PHOS 86 U/L 03/24/2015 Comp Metabolic Zby689 AST(SGOT) 20 U/L 03/24/2015 Comp Metabolic Ygs111 ALT(SGPT) 13 U/L 03/24/2015 Comp Metabolic Aqf556 BILI T 0.5 mg/dL 03/24/2015 Comp Metabolic Yth501 ALBUMIN 4.8 g/dL 03/24/2015 Comp Metabolic Dmd563 TPRO 7.8 g/dL 03/24/2015 Comp Metabolic Coy418 GLOB 3.0 g/dL 03/24/2015 Comp Metabolic Oqz338 A/G Ratio 1.6 Ratio 03/24/2015 Comp Metabolic Fqm593 Osmo 272 mOsmo 03/24/2015 Tsh Ord6 hTSH [...] Review of Systems System Result Effective Dates Ears/Nose/Throat/Neck No dizziness 2017 Ears/Nose/Throat/Neck No facial [...] 1994 Eyes conjunctiva /eyelids Overall: cornea clear 04/20/2013 None Full Exam - General 1994 Eyes conjunctiva /eyelids Overall: eyelids normal 04/20/2013 None Full Exam - General 1994 Eyes pupils and irises Overall: pupils equal, round, reactive to light and accomodation 04/20/2013 None Full Exam - General 1994 Ears/Nose/Throat otoscopic exam Overall: external auditory canals clear 04/20/2013 None Full Exam - General 1994 Ears/Nose/Throat [...] 04/20/2013 None Full Exam - General 1994 Psychiatric orientation/consciousness Overall: oriented to person, place and time 04/20/2013 None Full Exam - General 1994 Psychiatric mood and affect Overall: normal mood and affect 04/20/2013 None Full Exam - General 1994 Musculoskeletal digits and nails Overall: digits benign 04/20/2013 None Full Exam - General 1994 Musculoskeletal digits and nails Overall: no clubbing 04/20/2013 None Full Exam - General 1994 Musculoskeletal head and neck Overall: cervical spine [...] wheezes 04/20/2013 None Full Exam - General 1995 Respiratory auscultation Lower lung field: expiratory wheezes 04/20/2013 None Full Exam - General 1994 Lymphatic neck nodes Anterior cervical chain: a normal exam 04/20/2013 None Full Exam - General 1994 Lymphatic neck nodes Anterior cervical chain: Right number of palpable nodes: 2 04/20/2013 None Procedures Procedure Codes Date TRIAMCINOLONE ACET INJ NOS CPT-4: J3301 03/25/2018 TOBACCO-USE SPINNER BOX 3-[address]: 793468113 CPT-4: G0436 09/03/2016 TOBACCO-USE SPINNER BOX 3-[address]: 276448462 CPT-4: G0436 05/07/2016 TOBACCO-USE SPINNER BOX 3-[address]: 239573157 CPT-4: G0436 11/07/2015 TRIAMCINOLONE ACET INJ NOS CPT-4: J3301 03/22/2015 ROCEPHIN, PER 250 MG CPT-4: J0696 04/13/2014 TRIAMCINOLONE ACET INJ NOS CPT-4: J3301 04/13/2014 THER/PROPH/DIAG INJ SC/IM CPT-4: 70690 03/29/2014 TRIAMCINOLONE ACET INJ NOS CPT-4: J3301 03/29/2014 Vital Signs Date Vital 03/25/2018 Blood Pressure 1: 136/70 Code : 8480-6 BMI: 18.0 Code : 96478-7 Heart Rate 1 : 77 bpm Height: 5'7" SpO2: 98% Weight: 115 lbs 06/24/2017 Blood Pressure 1: 146/70 Code : 8480-6 BMI: 17.4 Code : 32406-8 Heart Rate 1 : 99 bpm Height: 5'7" SpO2: 96% Temperature: 37.6 (C) / 99.6 (F) Weight: 111 lbs 02/15/2017 Blood Pressure 1: 110/70 Code : 8480-6 Heart Rate 1: 77 bpm Height: SpO2: 95% Weight: 09/03/2016 Blood Pressure 1: 98/60 Code : 8480-6 BMI: 16.9 Code : 58264-6 Heart Rate 1 : 82 bpm Height: 5'7" SpO2: 97% Weight: 108 lbs 08/29/2016 Blood Pressure 1: 132/68 Code : 8480-6 BMI: 17.2 Code : 14020-9 Heart Rate 1 : 103 bpm Height: 5'7" SpO2: 95% Temperature: 37.3 (C) / 99.2 (F) Weight: 110 lbs 05/07/2016 Blood Pressure 1: 126/62 Code : 8480-6 BMI: 16.8 Code : 94251-0 Heart Rate 1 : 74 bpm Height: 5'7" SpO2: 98% Weight: 107 lbs 11/07/2015 Blood Pressure 1: 120/68 Code : 8480-6 BMI: 16.6 Code : 66126-9 Heart Rate 1 : 76 bpm Height: 5'7" SpO2: 98% Weight: 106 lbs 04/19/2015 Blood Pressure 1: 132/74 Code : 8480-6 BMI: 17.2 Code : 04577-6 Heart Rate 1 : 77 bpm Height: 5'7" SpO2: 98% Weight: 110 lbs 03/22/2015 Blood Pressure 1: 122/68 Code : 8480-6 BMI: 17.2 Code : 82230-1 Heart Rate 1 : 68 bpm Height: 5'7" SpO2: 97% Weight: 110 lbs 04/13/2014 Blood Pressure 1: 110/68 Code : 8480-6 BMI: 17.9 Code : 74343-2 Heart Rate 1 : 62 bpm Height: 5'7" Weight: 114 lbs 03/29/2014 Blood Pressure 1: 110/58 Code : 8480-6 BMI: 18.2 Code : 96059-7 Heart Rate 1 : 76 bpm Height: 5'7" Weight: 116 lbs 09/10/2013 Blood Pressure 1: 112/70 Code : 8480-6 BMI: 18.5 Code : 62409-4 Heart Rate 1 : 76 bpm Height: 5'7" Weight: 118 lbs 04/20/2013 Blood Pressure 1: 126/84 Code : 8480-6 BMI: 18.0 Code : 74963-9 Heart Rate 1 : 76 bpm Height: 5'7" Weight: 115 lbs Functional Status No Functional Status data History of Present Illness Symptom Name Status Result Effective Date Notes tinnitus Location in the right ear 03/25/2018 [...] data Encounters Encounter Performer Location Codes Date ([id number]) 64624 EST. PATIENT, LEVEL III Diagnosis: Otalgia, right ear[ICD10: H92.01] Diagnosis: Other allergic rhinitis[ICD10: J30.89] [facility] CPT-4: 28893 03/25/2018 22150 EST. PATIENT, LEVEL III Diagnosis: Acute laryngopharyngitis[ICD10: J06.0] [facility] CPT-4: 41484 06/24/2017 ([id number]) 38423 EST. PATIENT, LEVEL III Diagnosis: Periapical abscess without sinus[ICD10: K04.7] [facility] CPT-4: 95350 02/15/2017 ([id number]) 00448 EST. PATIENT, LEVEL III Diagnosis: Cough[ICD10: R05] Diagnosis: Encounter for screening mammogram for malignant neoplasm of breast[ ICD10: Z12.31] Diagnosis: Tobacco use[ICD10: Z72.0] Lottie Marshall MD, [facility] CPT-4: 74251 09/03/2016 91156 EST. PATIENT, LEVEL III Diagnosis: Acute laryngopharyngitis[ICD10: J06.0] Toma Marshall MD, [facility] CPT-4: 45728 08/29/2016 ([id number]) 14022 EST. PATIENT, LEVEL III Diagnosis: Cough[ICD10: R05] Diagnosis: Acute bronchitis due to other specified organisms[ICD10: J20.8] Diagnosis: Generalized enlarged lymph nodes[ICD10: R59.1] Diagnosis: Tobacco use[ICD10: Z72.0] Lottie Marshall MD, [facility] CPT-4: 88127 05/07/2016 ([id number]) 59113 EST. PATIENT, LEVEL III Diagnosis: Otalgia, bilateral[ICD10: H92.03] Diagnosis: Tobacco use[ICD10: Z72.0] Lottie Marshall MD, [facility] CPT-4: 71903 11/07/2015 ([id number]) Miscellaneous no charge Diagnosis: Otalgia, right ear[ICD10: H92.01] Lottie Marshall MD, [facility] CPT-4: 78016 04/22/2015 ([id number]) 80897 EST. PATIENT, LEVEL III Diagnosis: Tinnitus, bilateral[ICD10: H93.13] Diagnosis: Chronic obstructive pulmonary disease, unspecified[ICD10: J44.9] Lottie Marshall MD, [facility] CPT-4: 79542 04/19/2015 ([id number]) 26895 EST. PATIENT, LEVEL III Diagnosis: Allergic rhinitis, unspecified[ICD10: J30.9] Diagnosis: Otalgia, right ear[ICD10: H92.01] Cathy Marshall MD, [facility] CPT-4: 93462 03/22/2015 ([id number]) 46849 EST. PATIENT, LEVEL III Diagnosis: COUGH[ICD9: 786.2] Diagnosis: ACUTE BRONCHITIS[ICD9: 466.0] Diagnosis: ACUTE SINUSITIS[ICD9: 461.9] Cathy Marshall MD, [facility] CPT-4: 95898 04/13/2014 ([id number]) 67525 EST. PATIENT, LEVEL III Diagnosis: Right hip pain[ICD9: 719.45] Diagnosis: Shoulder pain, acute[ICD9: 719.41] Diagnosis: Sciatica[ICD9: 724.3] Lottie Marshall MD, [facility] CPT-4: 24542 03/29/2014 ([id number]) 62113 EST. PATIENT, LEVEL III Diagnosis: Rash[ICD9: 782.1] Cathy Marshall MD, [facility] CPT-4: 83198 09/10/2013 Office outpatient new 30 minutes Diagnosis: Routine medical exam[ICD9: V70.0] Diagnosis: TOBACCO USE DISORDER[ICD9: 305.1] Lottie Marshall MD, [facility] CPT-4: 91980 04/20/2013 Plan of Care Planned Activity Notes Codes Status Date Visit Plan: Allergies - chronic - recommended [...] hearing eval 03/25/2018 Appointment: Cathy Sanchez WPtel: [address] [place], [place] [phone] (15 min) Moderate 03/25/2018 Patient Education: Patient Medication Summary Completed 03/25/2018 Visit Plan: URI - Pt advised to increase fluids, vitamin C. Discussed natural and expected course of this diagnosis and need to alert me if symptoms do not follow expected course, or if any worse. RX sent to patient' s pharmacy. 06/24/2017 Appointment: Toma Suarez WPtel: [facility] (10 min) Simple 06/24/2017 Patient Education: Patient Medication Summary Completed 06/24/2017 Visit Plan: Tooth infection-will start abx-recommend dental evaluation -return to clinic if symptoms do not resolve or if any worse. Patient verbalized understanding of plan. 02/15/2017 Patient Education: Patient Medication Summary Completed 02/15/2017 Patient Education: Smoking and Tobacco Addiction Completed 02/15/2017 Appointment: Lottie Marshall WPtel: [facility] (15 min) Moderate 11/26/2016 Visit Plan: Allergies [...] allergy spray. 09/03/2016 Appointment: Lottie Marshall WPtel: [phone] (15 min) Moderate 09/03/2016 Patient Education: Patient Medication Summary Completed 09/03/2016 Patient Education: Smoking and Tobacco Addiction Completed 09/03/2016 Care Plan: SCREENINGMAMMOGRAPHYDIGITAL LOINC : 36903-3 Pending 09/03/2016 Visit Plan: URI - Pt advised to increase fluids, vitamin C. Discussed natural and expected course of this diagnosis and need to alert me if symptoms do not follow expected course, or if any worse. RX sent to patient' s pharmacy. 08/29/2016 Appointment: Toma Suarez WPtel: [facility] (15 min) Moderate 08/29/2016 Patient Education: [...] they worsen. 03/29/2014 Appointment: Lottie Marshall WPtel: [address] [place], [place] [phone] sciatic pain Sick 03/29/2014 Patient Education: Patient Medication Summary Completed 03/29/2014 Visit Plan: Rash-bacterial culture today in the office-RX sent to patient's pharmacy and instructed on use-follow up Saturday with update on symtpoms. Patient verbalized understanding of plan. Recommend A&D ointment to multiple SK's when rash resolved. 09/10/2013 Appointment: Cathy Sanchez WPtel: [phone] [id number] Sick 09/10/2013 Patient Education: Patient Medication [...] xray. 04/20/2013 App[facility]ment[phone] [facility] 04/20/2013 Patient Education: Patient Medication [...] worse. RX sent to patient's pharmacy. . Cough- Bronchitis - enlarged lymph node [...] follow up in 2 weeks if lymph crucible furnace tender . Tooth infection-will start abx-recommend dental evaluation [...]
--- OUTSIDE RECORDS SUMMARY | 2018-06-20 09:09 | XMS REPORT | CCD ---
Author Author Lottie Marshall MD, [facility] Address [address] [place] [address] Phone Care Team Providers Care General Handling Supervisor Name Role Phone PP Unavailable CCM Unavailable Summary Purpose Interface Exchange Insurance Providers Payer name Policy type / Coverage type Covered democrat ID Effective Begin Date Effective End Date WPS Medicare Part B Medicare Part B [id number] Unknown Family history Daughter Diagnosis Age At [...] Currently employed 04/20/[address]: 92613794 Current every day smoker 04/20/2013 Number of years using tobacco Unknown 20 04/20/2013 Number of cigarettes/day Unknown 20 (One Pack) 04/20/[address]: 409610540 Never drinks alcohol 04/20/2013 Has the patient [...] Kenalog 40 mg/mL suspension for injection RxNorm: 1163664 1 Milliliter(s) Inj 03/25/2018 03/25/2018 Inactive naratriptan 2.5 mg tablet RxNorm: 964634 TAKE ONE TABLET BY MOUTH AT ONSET OF MIGRAINE. MAY REPEAT IN 4 HOURS. LIMIT 2 TABLETS PER 24 HOURS. 09/16/2017 No Stop Date Active prednisone 10 mg tablets in a dose pack RxNorm: 315704 1 Tablet(s) PO UD 06/24/2017 06/29/2017 Inactive 6-5-4-3-2-1 cefdinir 300 mg capsule RxNorm: 658589 1 Capsule(s) PO BID 09/201707/03/2017 Inactive Zithromax Z-Sukumar 250 mg tablet RxNorm: 798731 1 Tablet(s) PO UD 06/21/2017 06/25/2017 Inactive zpack Zithromax Z-Sukumar 250 mg tablet RxNorm: 797918 1 Tablet(s) PO UD 04/17/2017 04/21/2017 Inactive zpack amoxicillin 500 mg tablet RxNorm: 381262 1 Tablet(s) PO TID 02/21/2017 Inactive naratriptan 2.5 mg tablet RxNorm: 020540 Tablet(s) TAKE ONE TABLET BY MOUTH AT ONSET OF MIGRAINE, MAY REPEAT IN 4 HOURS. LIMIT 5/24 HOURS. 12/10/2016 12/11/2016 Inactive Zithromax Z-Sukumar 250 mg tablet RxNorm: 686155 1 Tablet(s) PO UD 08/29/2016 09/02/2016 Inactive zpack Elimite 5 % topical cream RxNorm: 280461 1 TOP time may repeat in two weeks 05/24/2016 06/22/2016 Inactive Elimite 5 % topical cream RxNorm: 045344 1 TOP time may repeat in two weeks 05/24/2016 05/23/2016 Inactive azithromycin 250 mg tablet RxNorm: 320876 1 Tablet(s) PO UD 2 pills on day #1, then one pill daily x 4 more days 05/07/2016 08/28/2016 Inactive naratriptan 2.5 mg tablet RxNorm: 937619 TAKE ONE TABLET BY MOUTH AT ONSET OF MIGRAINE, MAY REPEAT IN 4 HOURS. LIMIT 5/24 HOURS. 201503/09/2016 Inactive naratriptan 1 mg tablet RxNorm: 741316 Tablet(s) TAKE ONE TABLET BY MOUTH AT ONSET OF MIGRAINE, MAY REPEAT IN 4 HOURS IF MIGRAINE IS NOT RESOLVED...LIMIT 5 PER 25 HOURS 04/11/2015 06/23/2017 Inactive INSURANCE WILL NOT PAY FOR MORE THAN 9 PILLS PER RX prednisone 10 mg tablets in a dose pack RxNorm: 814782 1 Tablet(s) PO UD 03/28/2015 04/02/2015 Inactive 6-5-4-3-2-1 prednisone 10 mg tablets in a dose pack RxNorm: 806908 1 Tablet(s) PO UD 03/28/2015 03/27/2015 Inactive 6-5-4-3-2-1 Kenalog 40 mg/mL suspension for injection RxNorm: 1533808 Milliliter(s) Inj 03/22/2015 03/22/2015 Inactive Keflex 500 mg capsule RxNorm: 020053 1 Capsule(s) PO TID 201403/28/2015 Inactive naratriptan 2.5 mg tablet RxNorm: 777172 Tablet(s) PO PRN as needed 01/19/2015 03/07/2016 Inactive one at onset of migraine, may repeat in 4 hrs. limit 5 in 24 hr.s naratriptan 1 mg tablet RxNorm: 950118 Tablet(s) TAKE ONE TABLET BY MOUTH AT ONSET OF MIGRAINE, MAY REPEAT IN 4 HOURS IF MIGRAINE IS NOT RESOLVED...LIMIT 5 PER 25 HOURS 01/14/2015 01/29/2015 Inactive naratriptan 1 mg tablet RxNorm: 759270 Tablet(s) TAKE ONE TABLET BY MOUTH AT ONSET OF MIGRAINE, MAY REPEAT IN 4 HOURS IF MIGRAINE IS NOT RESOLVED...LIMIT 5 PER 25 HOURS 09/27/2014 10/12/2014 Inactive naratriptan 1 mg tablet RxNorm: 478011 TAKE ONE TABLET BY MOUTH AT ONSET OF MIGRAINE, MAY REPEAT IN 4 HOURS IF MIGRAINE IS NOT RESOLVED...LIMIT 5 PER 25 HOURS 07/16/2014 07/31/2014 Inactive ceftriaxone 500 mg solution for injection RxNorm: 115797 Inj 04/13/2014 Inactive albuterol sulfate 2.5 mg/3 mL (0.083 %) solution for nebulization RxNorm: 274323 3 Milliliter(s) INH Q4 PRN 04/13/2014 06/11/2014 Inactive Kenalog 40 mg/mL suspension for injection RxNorm: 2644179 Milliliter(s) Inj 04/13/2014 04/13/2014 Inactive Flonase 50 mcg/actuation nasal spray,suspension RxNorm: 334942 1 Mary Alice NASAL daily 04/13/2014 04/26/2014 Inactive Zithromax Z-Sukumar 250 mg tablet RxNorm: 103074 1 Tablet(s) PO UD 04/13/2014 04/17/2014 Inactive zpack Kenalog 40 mg/mL suspension for injection RxNorm: 6469984 Milliliter(s) Inj 03/29/2014 03/29/2014 Inactive nystatin-triamcinolone 100,000 unit/g-0.1 % topical cream RxNorm: 3393642 1 Application TOP BID 09/10/2013 09/23/2013 Inactive Bactroban 2 % topical cream RxNorm: 325721 1 Application TOP BID 09/10/2013 09/23/2013 Inactive naratriptan 2.5 mg tablet RxNorm: 481625 Tablet(s) PO PRN 08/2001/18/2015 Inactive one at onset of migraine, may repeat in 4 hrs. limit 5 in 24 hr.s naratriptan 1 mg tablet RxNorm: 408392 1 Tablet(s) PO 201308/19/2013 Inactive one at onset of migraine may repeat in in 4 hr if migraine not resolved. limit 5mg in 25 hr. multivitamin capsule RxNorm: 1 Capsule(s) PO daily No Start Date Active Fish Oil 1,000 mg capsule RxNorm: 1 Capsule(s) PO daily No Start Date Active Calcium 600 + D(3) 600 mg (1,500 mg)-400 unit tablet RxNorm: 836878 2 Tablet(s) PO daily No Start Date Active naratriptan 1 mg tablet RxNorm: 699494 1 Tablet(s) PO No Start Date 07/06/2013 Inactive one at onset of migraine may repeat in naratriptan 2.5 mg tablet RxNorm: 758798 Tablet(s) PO PRN No Start Date 08/19/2013 Inactive Zomig 2.5 mg tablet RxNorm: 340638 Tablet(s) PO PRN No Start Date 08/19/2013 Inactive Daliresp 500 mcg tablet RxNorm: 9058640 1 Tablet(s) PO daily No Start Date 11/06/2015 Inactive Medication Administered Medication Codes Instructions Start Date Status Kenalog 40 mg/mL suspension for injection RxNorm: 2336414 1Milliliter 03/25/2018 Active Kenalog 40 mg/mL suspension for injection RxNorm: 5389284 Milliliter 03/22/2015 No longer Active ceftriaxone 500 mg solution for injection RxNorm: 877683 04/13/2014 No longer Active Kenalog 40 mg/mL suspension for injection RxNorm: 3247415 Milliliter 04/13/2014 No longer Active Kenalog 40 mg/mL suspension for injection RxNorm: 0685106 Milliliter 03/29/2014 No longer Active Immunizations Vaccine [...] Code Result Date Vitamin D 25 Oh Fev4188 VITAMIN D, 25 HYDROXY 46.83 ng/mL Cbc [...] 33.5 % 10/18/2015 Cbc With Differential Ord2 [place]% 6.0 % 10/18/2015 Cbc With Differential Ord2 [...] 1.72 K/ul 10/18/2015 Cbc With Differential Ord2 [place] ABS# 0.3 K/ul 10/18/2015 Cbc With Differential Ord2 Eos ABS# 0.3 K/ul 10/18/2015 Cbc With Differential Ord2 Baso ABS# 0.0 K/ul 10/18/2015 Comp Metabolic Nqh209 NA 138 mEq/L 10/18/2015 Comp Metabolic Cpl432 K 4.4 mEq/L 10/18/2015 Comp Metabolic Nbo403 CL 103 mEq/L 10/18/2015 Comp Metabolic Fqd673 CO2 30.0 mEq/L 10/18/2015 Comp Metabolic Frq752 ANION GAP 9 10/18/2015 Comp Metabolic Uee682 GLUCOSE 93 mg/dL 10/18/2015 Comp Metabolic Nte852 Creat 0.7 mg/dL 10/18/2015 Comp Metabolic Kgz645 eGFR 90 ml/min/1.73m2 10/18/2015 Comp Metabolic Cbb337 BUN 19 mg/dL 10/18/2015 Comp Metabolic Ply110 B/C Ratio 27.5 Ratio 10/18/2015 Comp Metabolic Yyt360 CALCIUM 9.3 mg/dL 10/18/2015 Comp Metabolic Enx069 ALK PHOS 95 U/L 10/18/2015 Comp Metabolic Gmg809 AST(SGOT) 17 U/L 10/18/2015 Comp Metabolic Cny358 ALT(SGPT) 10 U/L 10/18/2015 Comp Metabolic Xlq735 BILI T 0.5 mg/dL 10/18/2015 Comp Metabolic Ndf737 ALBUMIN 4.4 g/dL 10/18/2015 Comp Metabolic Hqn426 TPRO 7.2 g/dL 10/18/2015 Comp Metabolic Clj768 GLOB 2.8 g/dL 10/18/2015 Comp Metabolic Pkd432 A/G Ratio 1.6 Ratio 10/18/2015 Comp Metabolic Gaz893 Osmo 278 mOsmo 10/18/2015 Lipid Ord30 CHOL 201 mg/dL 10/18/2015 Lipid Ord30 HDL 45.0 mg/dl 10/18/2015 Lipid Ord30 TRIG 122 mg/dL 10/18/2015 Lipid Ord30 LDL 132 mg/dL 10/18/2015 Lipid Ord30 C/HDL 4.5 Ratio 10/18/2015 Tsh Ord6 hTSH II 1.46 uIU/mL 10/18/2015 Vitamin D 25 Oh Svc9119 VITAMIN D, 25 HYDROXY 42.46 ng/mL Comp Metabolic Ydq550 NA 135 mEq/L 03/24/2015 Comp Metabolic Vxv033 K 4.1 mEq/L 03/24/2015 Comp Metabolic Sau472 CL 103 mEq/L 03/24/2015 Comp Metabolic Bgw586 CO2 28.0 mEq/L 03/24/2015 Comp Metabolic Erw151 ANION GAP 8 03/24/2015 Comp Metabolic Euk296 GLUCOSE 101 mg/dL 03/24/2015 Comp Metabolic Hcm061 Creat 0.7 mg/dL 03/24/2015 Comp Metabolic Ukm580 eGFR 87 ml/min/1.73m2 03/24/2015 Comp Metabolic Kct847 BUN 17 mg/dL 03/24/2015 Comp Metabolic Peq491 B/C Ratio 23.9 Ratio 03/24/2015 Comp Metabolic Elj681 CALCIUM 10.0 mg/dL 03/24/2015 Comp Metabolic Jec942 ALK PHOS 86 U/L 03/24/2015 Comp Metabolic Mcz801 AST(SGOT) 20 U/L 03/24/2015 Comp Metabolic Ogl534 ALT(SGPT) 13 U/L 03/24/2015 Comp Metabolic Wmw300 BILI T 0.5 mg/dL 03/24/2015 Comp Metabolic Oxi187 ALBUMIN 4.8 g/dL 03/24/2015 Comp Metabolic Shl317 TPRO 7.8 g/dL 03/24/2015 Comp Metabolic Tcx389 GLOB 3.0 g/dL 03/24/2015 Comp Metabolic Mtz676 A/G Ratio 1.6 Ratio 03/24/2015 Comp Metabolic Fos221 Osmo 272 mOsmo 03/24/2015 Tsh Ord6 hTSH [...] ACET INJ NOS CPT-4: J3301 03/25/2018 TOBACCO-USE LIAISON ENGINEER 3-[address]: 829199901 CPT-4: G0436 09/03/2016 TOBACCO-USE LIAISON ENGINEER 3-[address]: 909844525 CPT-4: G0436 05/07/2016 TOBACCO-USE LIAISON ENGINEER 3-[address]: 492791407 CPT-4: G0436 11/07/2015 TRIAMCINOLONE ACET INJ NOS CPT-4: J3301 03/22/2015 ROCEPHIN, PER 250 MG CPT-4: J0696 04/13/2014 TRIAMCINOLONE ACET INJ NOS CPT-4: J3301 04/13/2014 THER/PROPH/DIAG INJ SC/IM CPT-4: 75913 03/29/2014 TRIAMCINOLONE ACET INJ NOS CPT-4: J3301 03/29/2014 Vital Signs Date Vital 03/25/2018 Blood Pressure 1: 136/70 Code : 8480-6 BMI: 18.0 Code : 04744-4 Heart Rate 1 : 77 bpm Height: 5'7" SpO2: 98% Weight: 115 lbs 06/24/2017 Blood Pressure 1: 146/70 Code : 8480-6 BMI: 17.4 Code : 83144-7 Heart Rate 1 : 99 bpm Height: 5'7" SpO2: 96% Temperature: 37.6 (C) / 99.6 (F) Weight: 111 lbs 02/15/2017 Blood Pressure 1: 110/70 Code : 8480-6 Heart Rate 1: 77 bpm Height: SpO2: 95% Weight: 09/03/2016 Blood Pressure 1: 98/60 Code : 8480-6 BMI: 16.9 Code : 67899-1 Heart Rate 1 : 82 bpm Height: 5'7" SpO2: 97% Weight: 108 lbs 08/29/2016 Blood Pressure 1: 132/68 Code : 8480-6 BMI: 17.2 Code : 30973-0 Heart Rate 1 : 103 bpm Height: 5'7" SpO2: 95% Temperature: 37.3 (C) / 99.2 (F) Weight: 110 lbs 05/07/2016 Blood Pressure 1: 126/62 Code : 8480-6 BMI: 16.8 Code : 68887-7 Heart Rate 1 : 74 bpm Height: 5'7" SpO2: 98% Weight: 107 lbs 11/07/2015 Blood Pressure 1: 120/68 Code : 8480-6 BMI: 16.6 Code : 57300-4 Heart Rate 1 : 76 bpm Height: 5'7" SpO2: 98% Weight: 106 lbs 04/19/2015 Blood Pressure 1: 132/74 Code : 8480-6 BMI: 17.2 Code : 38788-6 Heart Rate 1 : 77 bpm Height: 5'7" SpO2: 98% Weight: 110 lbs 03/22/2015 Blood Pressure 1: 122/68 Code : 8480-6 BMI: 17.2 Code : 10555-4 Heart Rate 1 : 68 bpm Height: 5'7" SpO2: 97% Weight: 110 lbs 04/13/2014 Blood Pressure 1: 110/68 Code : 8480-6 BMI: 17.9 Code : 38851-2 Heart Rate 1 : 62 bpm Height: 5'7" Weight: 114 lbs 03/29/2014 Blood Pressure 1: 110/58 Code : 8480-6 BMI: 18.2 Code : 24416-0 Heart Rate 1 : 76 bpm Height: 5'7" Weight: 116 lbs 09/10/2013 Blood Pressure 1: 112/70 Code : 8480-6 BMI: 18.5 Code : 62084-6 Heart Rate 1 : 76 bpm Height: 5'7" Weight: 118 lbs 04/20/2013 Blood Pressure 1: 126/84 Code : 8480-6 BMI: 18.0 Code : 02687-9 Heart Rate 1 : 76 bpm Height: [...] data Encounters Encounter Performer Location Codes Date ([id number]) [id number] EST. PATIENT, LEVEL III Diagnosis: Otalgia, right ear[ICD10: H92.01] Diagnosis: Other allergic rhinitis[ICD10: J30.89] Cathy Marshall MD, [facility] CPT-4: 37202 03/25/2018 91227 EST. PATIENT, LEVEL III Diagnosis: Acute laryngopharyngitis[ICD10: J06.0] [facility] CPT-4: 01744 06/24/2017 [id number]) 31701 EST. PATIENT, LEVEL III Diagnosis: Periapical abscess without sinus[ICD10: K04.7] [facility] CPT-4: 36667 02/15/2017 ([id number]) 95106 EST. PATIENT, LEVEL III Diagnosis: Cough[ICD10: R05] Diagnosis: Encounter for screening mammogram for malignant neoplasm of breast[ ICD10: Z12.31] Diagnosis: Tobacco use[ICD10: Z72.0] Lottie Marshall MD, [facility] CPT-4: 47774 09/03/2016 36953 EST. PATIENT, LEVEL III Diagnosis: Acute laryngopharyngitis[ICD10: J06.0] Toma Marshall MD, [facility] CPT-4: 73904 08/29/2016 ([id number]) 76882 EST. PATIENT, LEVEL III Diagnosis: Cough[ICD10: R05] Diagnosis: Acute bronchitis due to other specified organisms[ICD10: J20.8] Diagnosis: Generalized enlarged lymph nodes[ICD10: R59.1] Diagnosis: Tobacco use[ICD10: Z72.0] Lottie Marshall MD, [facility] CPT-4: 75598 05/07/2016 ([id number]) 13618 EST. PATIENT, LEVEL III Diagnosis: Otalgia, bilateral[ICD10: H92.03] Diagnosis: Tobacco use[ICD10: Z72.0] Lottie Marshall MD, [facility] CPT-4: 78043 11/07/2015 ([id number]) Miscellaneous no charge Diagnosis: Otalgia, right ear[ICD10: H92.01] Lottie Marshall MD, [facility] CPT-4: 45731 04/22/2015 ([id number]) 51051 EST. PATIENT, LEVEL III Diagnosis: Tinnitus, bilateral[ICD10: H93.13] Diagnosis: Chronic obstructive pulmonary disease, unspecified[ICD10: J44.9] Lottie Marshall MD, [facility] CPT-4: 49709 04/19/2015 ([id number]) 19678 EST. PATIENT, LEVEL III Diagnosis: Allergic rhinitis, unspecified[ICD10: J30.9] Diagnosis: Otalgia, right ear[ICD10: H92.01] Cathy Marshall MD, [facility] CPT-4: 99322 03/22/2015 ([id number]) 11482 EST. PATIENT, LEVEL III Diagnosis: COUGH[ICD9: 786.2] Diagnosis: ACUTE BRONCHITIS[ICD9: 466.0] Diagnosis: ACUTE SINUSITIS[ICD9: 461.9] Cathy Marshall MD, [facility] CPT-4: 31989 04/13/2014 ([id number]) 35447 EST. PATIENT, LEVEL III Diagnosis: Right hip pain[ICD9: 719.45] Diagnosis: Shoulder pain, acute[ICD9: 719.41] Diagnosis: Sciatica[ICD9: 724.3] Lottie Marshall MD, [facility] CPT-4: 29811 03/29/2014 ([id number] 04997 EST. PATIENT, LEVEL III Diagnosis: Rash[ICD9: 782.1] Cathy Marshall MD, [facility] CPT-4: 80124 09/10/2013 Office outpatient new 30 minutes Diagnosis: Routine medical exam[ICD9: V70.0] Diagnosis: TOBACCO USE DISORDER[ICD9: 305.1] Lottie Marshall MD, [facility] CPT-4: 57431 04/20/2013 Plan of Care Planned Activity Notes [...] Tinnitus -right ear -recommend hearing eval 03/25/2018 Patient Education: Patient Medication Summary Completed 03/25/2018 Visit Plan: URI - Pt advised to increase fluids, vitamin C. Discussed natural and expected course of this diagnosis and need to alert me if symptoms do not follow expected course, or if any worse. RX sent to patient' s pharmacy. 06/24/2017 Appointment: Toma Suarez WPtel: [address] [place], [place] [phone] (10 min) Simple 06/24/2017 Patient Education: Patient Medication Summary Completed 06/24/2017 Visit Plan: Tooth infection-will start abx-recommend dental evaluation -return to clinic if symptoms do not resolve or if any worse. Patient verbalized understanding of plan. 02/15/2017 Patient Education: Patient Medication Summary Completed 02/15/2017 Patient Education: Smoking and Tobacco Addiction Completed 02/15/2017 Appointment: Lottie Marshall WPtel: [facility] [address] (15 min) Moderate 11/26/2016 Visit Plan: Allergies [...] allergy spray. 09/03/2016 Appointment: Lottie Marshall WPtel: [facility] [address] (15 min) Moderate 09/03/2016 Patient Education: Patient Medication Summary Completed 09/03/2016 Patient Education: Smoking and Tobacco Addiction Completed 09/03/2016 Care Plan: SCREENINGMAMMOGRAPHYDIGITAL LOINC : 25737-2 Pending 09/03/2016 Visit Plan: URI - Pt advised to increase fluids, vitamin C. Discussed natural and expected course of this diagnosis and need to alert me if symptoms do not follow expected course, or if any worse. RX sent to patient' s pharmacy. 08/29/2016 Appointment: Toma Suarez WPtel: [facility] [address] (15 min) Moderate 08/29/2016 Patient Education: Patient Medication Summary Completed 08/29/2016 Patient Education: Smoking and Tobacco Addiction Completed 08/29/2016 Visit Plan: Cough- Bronchitis - enlarged lymph node - rx for leobardo, call if not improving. The pt encouraged [...] they worsen. 03/29/2014 Appointment: Lottie Marshall WPtel: [address] [place], [place] [phone] sciatic pain Sick 03/29/2014 Patient Education: Patient Medication Summary Completed 03/29/2014 Visit Plan: Rash-bacterial culture today in the office-RX sent to patient's pharmacy and instructed on use-follow up Rl with update on symtpoms. Patient verbalized understanding of plan. Recommend A&D ointment to multiple SK's when rash resolved. 09/10/2013 Appointment: Cathy Sanchez WPtel: [phone] [facility] [place] [address] 09/10/2013 Patient Education: Patient Medication Summary Completed [...] xray. 04/20/2013 Appointment: Lottie Marshall WPtel: [phone] [facility] New Patient 04/20/2013 Patient Education: Patient [...] - enlarged lymph node - rx for leobardo, call if not improving. The pt encouraged [...] follow up in 2 weeks if lymph bottle blowing machine tender . Tooth infection-will start abx-recommend dental [...]
--- OUTSIDE RECORDS SUMMARY | 2018-06-20 09:11 | XMS REPORT | Continuity of Care Document ---
Demographics Preferred Language Unknown Marital Status Unknown Rastafari Affiliation Unknown Race Unknown Ethnic Group Unknown Author Author [facility] Address Unknown Phone Unavailable Allergies Active Description Code Type Severity Reaction Onset Reported/Identified Relationship to Patient Clinical Status Yes Sulfa (Sulfonamide Antibiotics) [id number] Drug Allergy Severe COUGHING Medications There is no data. Problems Date Dx Coded Attending Type Code Diagnosis Diagnosed By 05/01/2008 491.21 BRONCHITIS AECB 05/01/2008 786.2 COUGH 06/09/2012 V06.1 TDAP DX 04/04/2015 Ot 496 04/04/2015 Ot V12.61 04/04/2015 Ot 722.52 04/04/2015 Ot 959.19 04/04/2015 Ot E000.8 04/04/2015 Ot E849.0 04/04/2015 Ot E884.9 04/04/2015 MILTON HOOK DO Ot 496 04/04/2015 MILTON HOOK DO S Ot 786.2 04/04/2015 MILTON HOOK DO Ot V76.12 04/04/2015 MEGAN RAMIREZ, ANNA MARIE Bose Ot 305.1 04/04/2015 MEGAN RAMIREZ, ANNA MARIE Bose Ot 515 04/04/2015 ANNA MARIE GUZMAN MD Ot 786.2 04/04/2015 JOE CISNEROS DO Ot 305.1 04/04/2015 JOE CISNEROS DO Ot 496 04/04/2015 ANNA MARIE GUZMAN MD Ot 305.1 04/04/2015 ANNA MARIE GUZMAN MD Ot 515 04/04/2015 MEGAN RAMIREZ, ANNA MARIE Bose Ot 786.2 04/12/2015 ANNA MARIE GUZMAN MD Ot 305.1 04/12/2015 ANNA MARIE GUZMAN MD Ot 515 04/12/2015 ANNA MARIE GUZMAN MD Ot 786.2 04/12/2015 JOE CISNEROS DO Ot 305.1 04/12/2015 JOE CISNEROS DO Ot 496 04/17/2018 MEGAN RAMIREZ, ANNA MARIE Bose Ot Z87.891 PERSONAL HISTORY OF NICOTINE DEPENDENCE 04/17/2018 ANNA MARIE GUZMAN MD Ot Z87.891 PERSONAL HISTORY OF NICOTINE DEPENDENCE 04/17/2018 ANNA MARIE GUZMAN MD Ot Z87.891 PERSONAL HISTORY OF NICOTINE DEPENDENCE 04/17/2018 ORENDER DO, MILTON S Ot 496 CHR AIRWAY OBSTRUCT NEC 04/17/2018 ORENDER DO, MILTON S Ot 786.2 COUGH 04/17/2018 ORENDER DO, MILTON S Ot V76.12 OTH SCREEN MAMMO-MALIGN NEOPLASM OF IVY 04/17/2018 ANNA MARIE GUZMAN MD Ot 305.1 TOBACCO USE DISORDER 04/17/2018 ANNA MARIE GUZMAN MD Ot 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 04/17/2018 ANNA MARIE GUZMAN MD Ot 786.2 COUGH 04/17/2018 BLAYNE DO, JOE M Ot 305.1 TOBACCO USE DISORDER 04/17/2018 BLAYNE DO, JOE M Ot 496 CHR AIRWAY OBSTRUCT NEC 04/17/2018 ANNA MARIE GUZMAN MD Ot Z87.891 PERSONAL HISTORY OF NICOTINE DEPENDENCE 04/18/2018 ORENDER DO, MILTON S Ot 496 CHR AIRWAY OBSTRUCT NEC 04/18/2018 ORENDER DO, MILTON S Ot 786.2 COUGH 04/18/2018 ORENDER DO, MILTON S Ot V76.12 OTH SCREEN MAMMO-MALIGN NEOPLASM OF IVY 04/18/2018 ANNA MARIE GUZMAN MD Ot 305.1 TOBACCO USE DISORDER 04/18/2018 ANNA MARIE GUZMAN MD Ot 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 04/18/2018 ANNA MARIE GUZMAN MD Ot 786.2 COUGH 04/18/2018 BLAYNE DO, JOE M Ot 305.1 TOBACCO USE DISORDER 04/18/2018 BLAYNE DO, JOE M Ot 496 CHR AIRWAY OBSTRUCT NEC 04/18/2018 ANNA MARIE GUZAMN MD Ot Z87.891 PERSONAL HISTORY OF NICOTINE DEPENDENCE 04/21/2018 ANNA MARIE GUZMAN MD Ot F17.210 NICOTINE DEPENDENCE, CIGARETTES, UNCOMPL 04/21/2018 ANNA MARIE GUZMAN MD Ot J43.9 EMPHYSEMA, UNSPECIFIED 04/21/2018 ANNA MARIE GUZMAN MD Ot R91.8 OTHER NONSPECIFIC ABNORMAL FINDING OF GABBY 04/21/2018 ANNA MARIE GUZMAN MD Ot Z12.2 ENCNTR SCREEN FOR MALIGNANT NEOPLASM OF 04/24/2018 ANNA MARIE GUZMAN MD Ot F17.210 NICOTINE DEPENDENCE, CIGARETTES, UNCOMPL 04/24/2018 ANNA MARIE GUZMAN MD Ot J43.9 EMPHYSEMA, UNSPECIFIED 04/24/2018 ANNA MARIE GUZMAN MD Ot R91.8 OTHER NONSPECIFIC ABNORMAL FINDING OF GABBY 04/24/2018 ANNA MARIE GUZMAN MD Ot Z12.2 ENCNTR SCREEN FOR MALIGNANT NEOPLASM OF 05/09/2018 ANNA MARIE GUZMAN MD Ot F17.210 NICOTINE DEPENDENCE, CIGARETTES, UNCOMPL 05/09/2018 ANNA MARIE GUZMAN MD Ot J43.9 EMPHYSEMA, UNSPECIFIED 05/09/2018 ANNA MARIE GUZMAN MD Ot R91.8 OTHER NONSPECIFIC ABNORMAL FINDING OF GABBY 05/09/2018 ANNA MARIE GUZMAN MD Ot Z12.2 ENCNTR SCREEN FOR MALIGNANT NEOPLASM OF 05/14/2018 JUDY MEEK BOTTOM BUFFER Ot Z12.31 ENCNTR SCREEN MAMMOGRAM FOR MALIGNANT NE 06/06/2018 JUDY MEEK BOTTOM BUFFER Ot Z12.31 ENCNTR SCREEN MAMMOGRAM FOR MALIGNANT NE 06/18/2018 SONNY THOMAS MD Ot Z01.818 ENCOUNTER FOR OTHER PREPROCEDURAL EXAMIN 06/18/2018 SONNY THOMAS MD Ot Z01.818 ENCOUNTER FOR OTHER PREPROCEDURAL EXAMIN 06/18/2018 SONNY THOMAS MD Ot Z01.818 ENCOUNTER FOR OTHER PREPROCEDURAL EXAMIN 06/18/2018 SONNY THOMAS MD Ot Z01.818 ENCOUNTER FOR OTHER PREPROCEDURAL EXAMIN 06/19/2018 SONNY THOMAS MD Ot Z01.818 ENCOUNTER FOR OTHER PREPROCEDURAL EXAMIN Procedures There is no data. Results There is no data. Encounters ACCT No. Visit Date/Time Discharge Status Pt. Type Provider Facility Loc./Unit Complaint [id number] 06/09/2012 12:51:00 06/09/2012 23:59:59 CLS Outpatient 0000 04/04/2017 09:45:40 04/04/2017 23:59:59 CLS Outpatient [id number] 06/18/2018 09:45:00 06/18/2018 10:01:00 DIS Outpatient SONNY THOMAS MD [facility] PREOP RIGHT CATARACT [id number] 05/15/2018 07:53:00 05/15/2018 23:59:59 CLS Outpatient GAVIOTA JUDYJEANINE Holder APRN [facility] RAD SCREENING [id number] 04/18/2018 07:47:00 04/18/2018 23:59:59 CLS Outpatient ANNA MARIE GUZMAN MD [facility] RAD SCREENING [id number] 06/17/2013 09:22:00 06/17/2013 23:59:59 CLS Outpatient JOE CISNEROS DO [facility] RT TABACCO USE,COPD [id number] 04/20/2013 11:35:00 04/20/2013 23:59:59 CLS Outpatient ANNA MARIE GUZMAN MD [facility] RAD COUGH,TOBACCOISM [id number] 11/17/2012 07:02:00 11/17/2012 23:59:59 CLS Outpatient MILTON HOOK DO [facility] RAD SCREENING,COPD, COUGH, [id number] 07/04/2018 10:00:00 PEN Preadmit SONNY THOMAS MD [facility] CATARACT LEFT EYE [id number] 06/20/2018 08:55:00 ACT Outpatient SONNY THOMAS MD [facility] RIGHT CATARACT [id number] 10/22/2011 15:16:00 Document Registration [id number] 03/02/2010 14:05:00 Document Registration
--- OUTSIDE RECORDS SUMMARY | 2018-06-20 09:11 | XMS REPORT | CCD ---
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 Customs Name Role Phone PP Unavailable CCM Unavailable Summary Purpose Interface Exchange Insurance Providers Payer name Policy type / Coverage type Covered republican ID Effective Begin Date Effective End Date WPS Medicare Part B Medicare Part B [id number] Unknown Family history Daughter Diagnosis Age At Onset No Family Disease Entered N/A Mother Diagnosis Age At Onset No Family Disease Entered N/A Father Diagnosis Age At Onset Heart Attack Unknown Brother Diagnosis Age At Onset No Family Disease Entered N/A Social History Social History Element Codes Description Effective Dates Marital status Unknown 04/20/2013 Number of children Unknown 1 04/20/2013 Employment Unknown Currently employed 04/20/[address]: 38594111 Current every day smoker 04/20/2013 Number of years using tobacco Unknown 20 04/20/2013 Number of cigarettes/day Unknown 20 (One Pack) 04/20/[address]: 085308523 Never drinks alcohol 04/20/2013 Has the patient ever used illegal drugs? Unknown Has never used illegal drugs 04/20/2013 Allergies, Adverse Reactions, Alerts Substance Reaction Codes Entered Date Inactivated Date Status SULFA (SULFONAMIDE ANTIBIOTICS) rash, nausea Unknown 2012 No Inactive Date Active Past Medical History Illness Codes Condition Status Onset Date Resolved Date Periapical abscess without sinus ICD-9: 522.5 ICD-10: K04.7 Active 02/15/2017 Unknown Cough ICD-9: 786.2 ICD-10: R05 Active 04/13/2014 Unknown Encounter for screening mammogram for malignant neoplasm of breast ICD-9: V76.12 ICD-10: Z12.31 Active 09/03/2016 Unknown Tobacco use ICD-9: 305.1 ICD-10: Z72.0 Active 04/20/2013 Unknown Acute laryngopharyngitis ICD-9: 465.0 ICD-10: J06.0 Active 08/29/2016 Unknown Acute bronchitis due to other specified organisms ICD-9: 466.0 ICD-10: J20.8 Active 04/13/2014 Unknown Generalized enlarged lymph nodes ICD-9: 785.6 ICD-10: R59.1 Active 05/06/2016 Unknown Otalgia, bilateral ICD -9: 388.70 ICD-10: H92.03 Active 11/06/2015 Unknown Otalgia, right ear ICD -9: 388.70 ICD-10: H92.01 Active 04/21/2015 Unknown Chronic obstructive pulmonary disease, unspecified ICD-9: [...] Problems Condition Codes Effective Dates Condition Status Periapical abscess without sinus ICD-9: 522.5 ICD-10: K04.7 02/15/2017 Active Cough ICD-9: 786.2 ICD-10: R05 04/13/2014 Active Encounter for screening mammogram for malignant neoplasm of breast ICD-9: V76.12 ICD-10: Z12.31 09/03/2016 Active Tobacco use ICD-9: 305.1 ICD-10: Z72.0 04/20/2013 Active Acute laryngopharyngitis ICD-9: 465.0 ICD-10: J06.0 08/29/2016 Active Acute bronchitis due to other specified organisms ICD-9: 466.0 ICD-10: J20.8 04/13/2014 Active Generalized enlarged lymph nodes ICD-9: 785.6 ICD-10: R59.1 05/06/2016 Active Otalgia, bilateral ICD -9: 388.70 ICD-10: H92.03 11/06/2015 Active Otalgia, right ear ICD -9: 388.70 ICD-10: H92.01 04/21/2015 Active Chronic obstructive pulmonary disease, unspecified ICD-9: [...] Start Date Stop Date Status Fill Instructions Zithromax Z-Sukumar 250 mg tablet RxNorm: 336302 1 Tablet(s) PO UD 06/21/2017 06/25/2017 Active zpack Zithromax Z-Sukumar 250 mg tablet RxNorm: 538318 1 Tablet(s) PO UD 04/17/2017 04/21/2017 Inactive zpack amoxicillin 500 mg tablet RxNorm: 400017 1 Tablet(s) PO TID 02/21/2017 Inactive naratriptan 2.5 mg tablet RxNorm: 970432 Tablet(s) TAKE ONE TABLET BY MOUTH AT ONSET OF MIGRAINE, MAY REPEAT IN 4 HOURS. LIMIT 10/10 HOURS. 12/10/2016 12/11/2016 Inactive Zithromax Z-Sukumar 250 mg tablet RxNorm: 949018 1 Tablet(s) PO UD 08/29/2016 09/02/2016 Inactive zpack Elimite 5 % topical cream RxNorm: 484742 1 TOP time may repeat in two weeks 05/24/2016 06/22/2016 Inactive Elimite 5 % topical cream RxNorm: 700900 1 TOP time may repeat in two weeks 05/24/2016 05/23/2016 Inactive azithromycin 250 mg tablet RxNorm: 173015 1 Tablet(s) PO UD 2 pills on day #1, then one pill daily x 4 more days 05/07/2016 08/28/2016 Inactive naratriptan 2.5 mg tablet RxNorm: 681355 TAKE ONE TABLET BY MOUTH AT ONSET OF MIGRAINE, MAY REPEAT IN 4 HOURS. LIMIT 5/24 HOURS. 201503/09/2016 Inactive naratriptan 1 mg tablet RxNorm: 050415 Tablet(s) TAKE ONE TABLET BY MOUTH AT ONSET OF MIGRAINE, MAY REPEAT IN 4 HOURS IF MIGRAINE IS NOT RESOLVED...LIMIT 5 PER 25 HOURS 04/11/2015 04/26/2015 Inactive INSURANCE WILL NOT PAY FOR MORE THAN 9 PILLS PER RX prednisone 10 mg tablets in a dose pack RxNorm: 363438 1 Tablet(s) PO UD 03/28/2015 04/02/2015 Inactive 6-5-4-3-2-1 prednisone 10 mg tablets in a dose pack RxNorm: 931604 1 Tablet(s) PO UD 03/28/2015 03/27/2015 Inactive 6-5-4-3-2-1 Kenalog 40 mg/mL suspension for injection RxNorm: 7609672 Milliliter(s) Inj 03/22/2015 03/22/2015 Inactive Keflex 500 mg capsule RxNorm: 154559 1 Capsule(s) PO TID 201403/28/2015 Inactive naratriptan 2.5 mg tablet RxNorm: 108494 Tablet(s) PO PRN as needed 01/19/2015 03/07/2016 Inactive one at onset of migraine, may repeat in 4 hrs. limit 5 in 24 hr.s naratriptan 1 mg tablet RxNorm: 955777 Tablet(s) TAKE ONE TABLET BY MOUTH AT ONSET OF MIGRAINE, MAY REPEAT IN 4 HOURS IF MIGRAINE IS NOT RESOLVED...LIMIT 5 PER 25 HOURS 01/14/2015 01/29/2015 Inactive naratriptan 1 mg tablet RxNorm: 231785 Tablet(s) TAKE ONE TABLET BY MOUTH AT ONSET OF MIGRAINE, MAY REPEAT IN 4 HOURS IF MIGRAINE IS NOT RESOLVED...LIMIT 5 PER 25 HOURS 09/27/2014 10/12/2014 Inactive naratriptan 1 mg tablet RxNorm: 433427 TAKE ONE TABLET BY MOUTH AT ONSET OF MIGRAINE, MAY REPEAT IN 4 HOURS IF MIGRAINE IS NOT RESOLVED...LIMIT 5 PER 25 HOURS 07/16/2014 07/31/2014 Inactive ceftriaxone 500 mg solution for injection RxNorm: 125456 Inj 04/13/2014 Inactive albuterol sulfate 2.5 mg/3 mL (0.083 %) solution for nebulization RxNorm: 304513 3 Milliliter(s) INH Q4 PRN 04/13/2014 06/11/2014 Inactive Kenalog 40 mg/mL suspension for injection RxNorm: 1606949 Milliliter(s) Inj 04/13/2014 04/13/2014 Inactive Flonase 50 mcg/actuation nasal spray,suspension RxNorm: 792370 1 [place] NASAL daily 04/13/2014 04/26/2014 Inactive Zithromax Z-Sukumar 250 mg tablet RxNorm: 747463 1 Tablet(s) PO UD 04/13/2014 04/17/2014 Inactive zpack Kenalog 40 mg/mL suspension for injection RxNorm: 3521419 Milliliter(s) Inj 03/29/2014 03/29/2014 Inactive nystatin-triamcinolone 100,000 unit/g-0.1 % topical cream RxNorm: 2545931 1 Application TOP BID 09/10/2013 09/23/2013 Inactive Bactroban 2 % topical cream RxNorm: 958677 1 Application TOP BID 09/10/2013 09/23/2013 Inactive naratriptan 2.5 mg tablet RxNorm: 079916 Tablet(s) PO PRN 08/2001/18/2015 Inactive one at onset of migraine, may repeat in 4 hrs. limit 5 in 24 hr.s naratriptan 1 mg tablet RxNorm: 855093 1 Tablet(s) PO 201308/19/2013 Inactive one at onset of migraine may repeat in in 4 hr if migraine not resolved. limit 5mg in 25 hr. multivitamin capsule RxNorm: 1 Capsule(s) PO daily No Start Date Active Fish Oil 1,000 mg capsule RxNorm: 1 Capsule(s) PO daily No Start Date Active Calcium 600 + D(3) 600 mg (1,500 mg)-400 unit tablet RxNorm: 149638 2 Tablet(s) PO daily No Start Date Active naratriptan 1 mg tablet RxNorm: 172265 1 Tablet(s) PO No Start Date 07/06/2013 Inactive one at onset of migraine may repeat in naratriptan 2.5 mg tablet RxNorm: 606399 Tablet(s) PO PRN No Start Date 08/19/2013 Inactive Zomig 2.5 mg tablet RxNorm: 828466 Tablet(s) PO PRN No Start Date 08/19/2013 Inactive Daliresp 500 mcg tablet RxNorm: 4771137 1 Tablet(s) PO daily No Start Date 11/06/2015 Inactive Medication Administered Medication Codes Instructions Start Date Status Kenalog 40 mg/mL suspension for injection RxNorm: 3533802 Milliliter 03/22/2015 No longer Active ceftriaxone 500 mg solution for injection RxNorm: 190925 04/13/2014 No longer Active Kenalog 40 mg/mL suspension for injection RxNorm: 9287192 Milliliter 04/13/2014 No longer Active Kenalog 40 mg/mL suspension for injection RxNorm: 4690305 Milliliter 03/29/2014 No longer Active Immunizations Vaccine Codes Date Status PPD Unknown 04/22/2015 completed Assessments Condition Codes Effective Dates Periapical abscess without sinus ICD-10: K04.7 ICD-9: 522.5 02/15/2017 Tobacco use ICD-10: Z72.0 ICD-9: 305.1 09/03/2016 Encounter for screening mammogram for malignant neoplasm of breast ICD-10: Z12.31 ICD-9: V76.12 09/03/2016 Cough ICD-10: R05 ICD-9: 786.2 09/03/2016 Acute laryngopharyngitis ICD-10: J06.0 ICD-9: 465.0 08/29/2016 Acute bronchitis due to other specified organisms ICD-10: J20.8 ICD-9: 466.0 05/07/2016 Generalized enlarged lymph nodes ICD-10: R59.1 ICD-9: 785.6 05/07/2016 Otalgia, bilateral ICD-10: H92.03 ICD-9: 388.70 11/07/2015 Otalgia, right ear ICD-10: H92.01 ICD-9: 388.70 04/22/2015 Chronic obstructive pulmonary disease, unspecified ICD-10: J44.9 [...] Visit Reason For Visit Effective Dates Notes dental pain 02/15/2017 cough 09/03/2016 cough 08/29/2016 sore throat 05/07/2016 tinnitus 11/07/2015 tinnitus 04/19/2015 tinnitus 03/22/2015 sinus congestion 04/13/2014 shoulder pain 03/29/2014 right shoulder skin lesion 09/10/2013 headache 04/20/2013 Results Observation Observation Code Item Item Code Result Date Vitamin D 25 Oh [id number] VITAMIN D, 25 HYDROXY 46.83 ng/mL Cbc [...] 33.5 % 10/18/2015 Cbc With Differential Ord2 Parmer% 6.0 % 10/18/2015 Cbc With Differential Ord2 [...] 1.72 K/ul 10/18/2015 Cbc With Differential Ord2 [place] ABS# 0.3 K/ul 10/18/2015 Cbc With Differential Ord2 Eos ABS# 0.3 K/ul 10/18/2015 Cbc With Differential Ord2 Baso ABS# 0.0 K/ul 10/18/2015 Comp Metabolic Sxd441 NA 138 mEq/L 10/18/2015 Comp Metabolic Tjw936 K 4.4 mEq/L 10/18/2015 Comp Metabolic Fbf580 CL 103 mEq/L 10/18/2015 Comp Metabolic Yay617 CO2 30.0 mEq/L 10/18/2015 Comp Metabolic Wbl165 ANION GAP 9 10/18/2015 Comp Metabolic Yee785 GLUCOSE 93 mg/dL 10/18/2015 Comp Metabolic Doe926 Creat 0.7 mg/dL 10/18/2015 Comp Metabolic Hbp093 eGFR 90 ml/min/1.73m2 10/18/2015 Comp Metabolic Imy734 BUN 19 mg/dL 10/18/2015 Comp Metabolic Ara736 B/C Ratio 27.5 Ratio 10/18/2015 Comp Metabolic Tft817 CALCIUM 9.3 mg/dL 10/18/2015 Comp Metabolic Aer394 ALK PHOS 95 U/L 10/18/2015 Comp Metabolic Bpa294 AST(SGOT) 17 U/L 10/18/2015 Comp Metabolic Bas899 ALT(SGPT) 10 U/L 10/18/2015 Comp Metabolic Xog892 BILI T 0.5 mg/dL 10/18/2015 Comp Metabolic Flw779 ALBUMIN 4.4 g/dL 10/18/2015 Comp Metabolic Qjp816 TPRO 7.2 g/dL 10/18/2015 Comp Metabolic Xvt051 GLOB 2.8 g/dL 10/18/2015 Comp Metabolic Veo844 A/G Ratio 1.6 Ratio 10/18/2015 Comp Metabolic Ijy046 Osmo 278 mOsmo 10/18/2015 Lipid Ord30 CHOL 201 mg/dL 10/18/2015 Lipid Ord30 HDL 45.0 mg/dl 10/18/2015 Lipid Ord30 TRIG 122 mg/dL 10/18/2015 Lipid Ord30 LDL 132 mg/dL 10/18/2015 Lipid Ord30 C/HDL 4.5 Ratio 10/18/2015 Tsh Ord6 hTSH II 1.46 uIU/mL 10/18/2015 Vitamin D 25 Oh Idw4622 VITAMIN D, 25 HYDROXY 42.46 ng/mL Comp Metabolic Tia007 NA 135 mEq/L 03/24/2015 Comp Metabolic Lni266 K 4.1 mEq/L 03/24/2015 Comp Metabolic Jbs722 CL 103 mEq/L 03/24/2015 Comp Metabolic Xzx482 CO2 28.0 mEq/L 03/24/2015 Comp Metabolic Fcz313 ANION GAP 8 03/24/2015 Comp Metabolic Aii556 GLUCOSE 101 mg/dL 03/24/2015 Comp Metabolic Tll137 Creat 0.7 mg/dL 03/24/2015 Comp Metabolic Rqd257 eGFR 87 ml/min/1.73m2 03/24/2015 Comp Metabolic Bsw427 BUN 17 mg/dL 03/24/2015 Comp Metabolic Ujb794 B/C Ratio 23.9 Ratio 03/24/2015 Comp Metabolic Uus774 CALCIUM 10.0 mg/dL 03/24/2015 Comp Metabolic Vfs210 ALK PHOS 86 U/L 03/24/2015 Comp Metabolic Pvn027 AST(SGOT) 20 U/L 03/24/2015 Comp Metabolic Ppj667 ALT(SGPT) 13 U/L 03/24/2015 Comp Metabolic Qcy295 BILI T 0.5 mg/dL 03/24/2015 Comp Metabolic Tao127 ALBUMIN 4.8 g/dL 03/24/2015 Comp Metabolic Kwz985 TPRO 7.8 g/dL 03/24/2015 Comp Metabolic Eyi947 GLOB 3.0 g/dL 03/24/2015 Comp Metabolic Khh983 A/G Ratio 1.6 Ratio 03/24/2015 Comp Metabolic Bjl993 Osmo 272 mOsmo 03/24/2015 Tsh Ord6 hTSH [...] Result Effective Dates Constitutional No recent illness 2016 Constitutional No [...] age 1204/20/2013 None Full Exam - General 1995 Constitutional general appearance Development: appears stated age 1204/20/2013 None Full Exam - General 1995 Constitutional general appearance Development: well developed 04/20/2013 None Full Exam - General 1995 Constitutional general appearance Hygiene/Attention to Grooming: good [...] rate 04/20/2013 None Full Exam - General 1995 Abdomen abdominal exam Overall: no tenderness 04/20/2013 None Full Exam - General 1995 Abdomen abdominal exam Overall: normal bowel sounds [...] 2 04/20/2013 None Procedures Procedure Codes Date TOBACCO-USE [employer] 3-[address]: 186343377 CPT-4: G0436 09/03/2016 TOBACCO-USE [employer]ER 3-[address]: 765824471 CPT-4: G0436 05/07/2016 TOBACCO-USE [employer] TE[employer]ER 3-[address]: 624410520 CPT-4: G0436 11/07/2015 TRIAMCINOLONE ACET INJ NOS CPT-4: J3301 03/22/2015 ROCEPHIN, PER 250 MG CPT-4: J0696 04/13/2014 TRIAMCINOLONE ACET INJ NOS CPT-4: J3301 04/13/2014 THER/PROPH/DIAG INJ SC/IM CPT-4: 19871 03/29/2014 TRIAMCINOLONE ACET INJ NOS CPT-4: J3301 03/29/2014 Vital Signs Date Vital 02/15/2017 Blood Pressure 1: 110/70 Code : 8480-6 Heart Rate 1: 77 bpm Height: SpO2: 95% Weight: 09/03/2016 Blood Pressure 1: 98/60 Code : 8480-6 BMI: 16.9 Code : 30047-6 Heart Rate 1 : 82 bpm Height: 5'7" SpO2: 97% Weight: 108 lbs 08/29/2016 Blood Pressure 1: 132/68 Code : 8480-6 BMI: 17.2 Code : 67985-2 Heart Rate 1 : 103 bpm Height: 5'7" SpO2: 95% Temperature: 37.3 (C) / 99.2 (F) Weight: 110 lbs 05/07/2016 Blood Pressure 1: 126/62 Code : 8480-6 BMI: 16.8 Code : 47876-2 Heart Rate 1 : 74 bpm Height: 5'7" SpO2: 98% Weight: 107 lbs 11/07/2015 Blood Pressure 1: 120/68 Code : 8480-6 BMI: 16.6 Code : 25053-5 Heart Rate 1 : 76 bpm Height: 5'7" SpO2: 98% Weight: 106 lbs 04/19/2015 Blood Pressure 1: 132/74 Code : 8480-6 BMI: 17.2 Code : 75356-0 Heart Rate 1 : 77 bpm Height: 5'7" SpO2: 98% Weight: 110 lbs 03/22/2015 Blood Pressure 1: 122/68 Code : 8480-6 BMI: 17.2 Code : 43020-6 Heart Rate 1 : 68 bpm Height: 5'7" SpO2: 97% Weight: 110 lbs 04/13/2014 Blood Pressure 1: 110/68 Code : 8480-6 BMI: 17.9 Code : 61348-4 Heart Rate 1 : 62 bpm Height: 5'7" Weight: 114 lbs 03/29/2014 Blood Pressure 1: 110/58 Code : 8480-6 BMI: 18.2 Code : 04681-8 Heart Rate 1 : 76 bpm Height: 5'7" Weight: 116 lbs 09/10/2013 Blood Pressure 1: 112/70 Code : 8480-6 BMI: 18.5 Code : 30737-7 Heart Rate 1 : 76 bpm Height: 5'7" Weight: 118 lbs 04/20/2013 Blood Pressure 1: 126/84 Code : 8480-6 BMI: 18.0 Code : 46089-5 Heart Rate 1 : 76 bpm Height: 5'7" Weight: 115 lbs Functional Status No Functional Status data History of Present Illness Symptom Name Status Result Effective Date Notes dental pain Location toothache 02/15/2017 None dental [...] data Encounters Encounter Performer Location Codes Date () [id number] EST. PATIENT, LEVEL III Diagnosis: Periapical abscess without sinus[ICD10: K04.7] Cathy [facility] MD, [facility] CPT-4: 43081 02/15/2017 ([id number]) 29061 EST. PATIENT, LEVEL III Diagnosis: Cough[ICD10: R05] Diagnosis: Encounter for screening mammogram for malignant neoplasm of breast[ ICD10: Z12.31] Diagnosis: Tobacco use[ICD10: Z72.0] [facility]ie [facility] MD, [facility] CPT-4: 50976 09/03/2016 [id number] EST. PATIENT, LEVEL III Diagnosis: Acute laryngopharyngitis[ICD10: J06.0] Toma Marshall MD, [facility] CPT-4: 20339 08/29/2016 ([id number]) 35021 EST. PATIENT, LEVEL III Diagnosis: Cough[ICD10: R05] Diagnosis: Acute bronchitis due to other specified organisms[ICD10: J20.8] Diagnosis: Generalized enlarged lymph nodes[ICD10: R59.1] Diagnosis: Tobacco use[ICD10: Z72.0] [facility]ottie [facility] MD, [facility] CPT-4: 80816 05/07/2016 ([id number]) 53830 EST. PATIENT, LEVEL III Diagnosis: Otalgia, bilateral[ICD10: H92.03] Diagnosis: Tobacco use[ICD10: Z72.0] Lottie [facility] MD, [facility] CPT-4: 78723 11/07/2015 ([id number]) Miscellaneous no charge Diagnosis: Otalgia, right ear[ICD10: H92.01] Lottie Marshall MD, [facility] CPT-4: 11387 04/22/2015 ([id number]) 55019 EST. PATIENT, LEVEL III Diagnosis: Tinnitus, bilateral[ICD10: H93.13] Diagnosis: Chronic obstructive pulmonary disease, unspecified[ICD10: J44.9] Lottie Marshall MD, [facility] CPT-4: 73076 04/19/2015 ([id number]) 22045 EST. PATIENT, LEVEL III Diagnosis: Allergic rhinitis, unspecified[ICD10: J30.9] Diagnosis: Otalgia, right ear[ICD10: H92.01] Cathy Marshall MD, [facility] CPT-4: 15502 03/22/2015 ([id number]) 98790 EST. PATIENT, LEVEL III Diagnosis: COUGH[ICD9: 786.2] Diagnosis: ACUTE BRONCHITIS[ICD9: 466.0] Diagnosis: ACUTE SINUSITIS[ICD9: 461.9] Cathy Marshall MD, [facility] CPT-4: 64609 04/13/2014 ([id number]) 72939 EST. PATIENT, LEVEL III Diagnosis: Right hip pain[ICD9: 719.45] Diagnosis: Shoulder pain, acute[ICD9: 719.41] Diagnosis: Sciatica[ICD9: 724.3] Lottie Marshall MD, [facility] CPT-4: 29489 03/29/2014 ([id number]) 21020 EST. PATIENT, LEVEL III Diagnosis: Rash[ICD9: 782.1] Cathy Marshall MD, [facility] CPT-4: 50429 09/10/2013 Office outpatient new 30 minutes Diagnosis: Routine medical exam[ICD9: V70.0] Diagnosis: TOBACCO USE DISORDER[ICD9: 305.1] Lottie Marshall MD, [facility] CPT-4: 11819 04/20/2013 Plan of Care Planned Activity Notes Codes Status Date Visit Plan: Tooth infection-will start abx-recommend dental evaluation -return to clinic if symptoms do not resolve or if any worse. Patient verbalized understanding of plan. 02/15/2017 Patient Education: Patient Medication Summary Completed 02/15/2017 Patient Education: Smoking and Tobacco Addiction Completed 02/15/2017 Appointment: Lottie Marshall WPtel: [address] [place], [place] [phone] (15 min) Moderate 11/26/2016 Visit Plan: Allergies [...] spray. 09/03/2016 Appointment: Lottie Marshall WPtel: [phone] [facility] (15 min) Moderate 09/03/2016 Patient Education: Patient Medication Summary Completed 09/03/2016 Patient Education: Smoking and Tobacco Addiction Completed 09/03/2016 Care Plan: SCREENINGMAMMOGRAPHYDIGITAL LOINC : 68271-6 Pending 09/03/2016 Visit Plan: URI - Pt advised to increase fluids, vitamin C. Discussed natural and expected course of this diagnosis and need to alert me if symptoms do not follow expected course, or if any worse. RX sent to patient' s pharmacy. 08/29/2016 Appointment: Toma Suarez WPtel: [phone] [phone] (15 min) Moderate 08/29/2016 Patient Education: Patient Medication Summary Completed 08/29/2016 Patient Education: Smoking and Tobacco Addiction Completed 08/29/2016 Visit Plan: Cough- Bronchitis - enlarged lymph node - rx for lexpack, call if not improving. The pt encouraged [...] they worsen. 03/29/2014 Appointment: Lottie Marshall WPtel: [facility] sciatic pain Sick 03/29/2014 Patient Education: Patient Medication Summary Completed 03/29/2014 Visit Plan: Rash-bacterial culture today in the office-RX sent to patient's pharmacy and instructed on use-follow up Saturday with update on symtpoms. Patient verbalized understanding of plan. Recommend A&D ointment to multiple SK's when rash resolved. 09/10/2013 Appointment: Cathy Sanchez WPtel: [phone] [phone] Sick 09/10/2013 Patient Education: Patient Medication Summary [...] xray. 04/20/2013 [phone] [place] New Patient 04/20/2013 Patient Education: Patient Medication [...] to right ear for cerumen impaction . 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 Tooth infection-will start abx-recommend dental evaluation -return to clinic if symptoms do not resolve or if any worse. Patient verbalized understanding of plan. . Tinnitus - recommended pt to use oil in ears, referral to specialist is symptoms do not improve. Tobaccoism - recommended pt to stop smoking.
[2018-06-20] MEDS: TETRACAINE 0.5% OPHTH SOLN 4 ML BTL (SINGLE DOSE ONLY) OU PRN ×4 (09:15→09:25)
[2018-06-20] MEDS: PHENYLEPHRINE 10% OPHTH (NEO-SYN) 5 ML BTL OU SCH ×3 (09:19→09:25)
[2018-06-20] MEDS: CYCLOPENTOLATE 1% (CYCLOGYL) 2 ML DROPS OP SCH ×3 (09:19→09:25)
--- NOTE | 2018-06-20 09:31 | Ophthalmologist Pre-Op Note ---
Pre-Operative Progress Note H&P Reviewed The H&P was reviewed, patient examined and no changes noted. Date H&P Reviewed: Jun 20, 2018 Time H&P Reviewed: 09:31 Pre-Op Dx Cataract, Right Eye SONNY THOMAS MD Jun 20, 2018 09:31
[2018-06-20] MEDS ORDERED: MIDAZOLAM 2 MG/2 ML (VERSED) VIAL ONE (09:32)
--- NOTE | 2018-06-20 09:53 | Ophthalmology Operative Report ---
Cataract removal/placement IOL PREOPERATIVE DIAGNOSIS: Cataract Right Eye POSTOPERATIVE DIAGNOSIS: Cataract Right Eye PROCEDURE: Cataract removal and placement of posterior chamber implant, right eye SURGEON: Hamilton Thomas ANESTHESIA: Topical with sedation COMPLICATIONS: None ESTIMATED BLOOD LOSS: Minimal DESCRIPTION OF PROCEDURE: After proper informed consent was obtained, the patient, a 73 female, was taken to the Operating Room and the right eye was anesthetized with tetracaine. The right eye was then prepped and draped in the usual manner. A wire lid speculum was placed. A paracentesis was made at the left hand position. Preservative free lidocaine was injected into the anterior chamber followed by viscoelastic. A clear corneal incision was made in the temporal position. A capsulorrhexis was preformed and the central nuclear and cortical material were removed. The posterior capsule was polished and José Luis [id number] 22.0 IOL was placed into the capsular bag. The residual viscoelastic was aspirated and balanced saline solution was injected into the anterior chamber. Moxifloxacin was injected into the anterior chamber. The wound was checked and found to be water tight. The patient tolerated the procedure well without complications. HAMILTON THOMAS MD Jun 20, 2018 09:53
[2018-06-20 09:59] VITALS: BP 130/74
--- NOTE | 2018-06-20 12:53 | Anesthesia-General Post-Op ---
MAC Patient Condition Mental Status/LOC: Same as Preop Cardiovascular: Satisfactory Nausea/Vomiting: Absent Respiratory: Satisfactory Pain: Controlled Complications: Absent Post Op Complications Complications None Follow Up Care/Instructions Patient Instructions None needed. Anesthesiology Discharge Order Discharge Order Patient is doing well, no complaints, stable vital signs, no apparent adverse anesthesia problems. No complications reported per nursing. RONALDO IGNACIO CRNA Jun 20, 2018 12:53
== END 2018-06-20 10:00 | disposition home or self-care (01) ==
LOC: SDC 08:55
PROVIDERS: ATTEND Specialist
DX: H25.11 Age-related nuclear cataract, right eye (principal)

== ENCOUNTER 2018-06-27 05:45 | Outpatient (CLI) | payer MEDICARE | END 2018-06-27 13:54 | disposition home or self-care (01) | LOC: PREOP 05:45 | PROVIDERS: ATTEND Specialist | DX: Z01.818 Encounter for other preprocedural examination (principal) ==

== ENCOUNTER 2018-07-04 08:27 | Day surgery (SDC) | payer MEDICARE ==
[~2018-07-04] VITALS: Ht 167.6 cm; Wt 52.2 kg
[2018-07-04] MEDS ORDERED: LIDOCAINE PF 1% 2 ML AMP IR PRN (08:30)
[2018-07-04] MEDS ORDERED: TIMOLOL MALEATE 0.5% 5 ML (TIMOPTIC) BTL OU PRN (08:30)
[2018-07-04] MEDS ORDERED: MOXIFLOXACIN OPHTH SOLN 5 MG/ML 0.3 ML SYRINGE OP ONE (08:30)
[2018-07-04] MEDS ORDERED: POVIDONE (BETADINE) OPHTH SOLN 5% 30 ML OP ONE (08:30)
[2018-07-04] MEDS: TETRACAINE 0.5% OPHTH SOLN 4 ML BTL (SINGLE DOSE ONLY) OU PRN ×4 (08:39→08:52)
[2018-07-04 08:40] VITALS: BP 144/90
[2018-07-04] MEDS: PHENYLEPHRINE 10% OPHTH (NEO-SYN) 5 ML BTL OU SCH ×3 (08:44→08:52)
[2018-07-04] MEDS: CYCLOPENTOLATE 1% (CYCLOGYL) 2 ML DROPS OP SCH ×3 (08:44→08:52)
[2018-07-04] MEDS ORDERED: MIDAZOLAM 2 MG/2 ML (VERSED) VIAL ONE (08:55)
--- NOTE | 2018-07-04 09:31 | Ophthalmologist Pre-Op Note ---
Pre-Operative Progress Note H&P Reviewed The H&P was reviewed, patient examined and no changes noted. Date H&P Reviewed: Jul 04, 2018 Time H&P Reviewed: 09:31 Pre-Op Dx Cataract, Left Eye SONNY THOMAS MD Jul 04, 2018 09:31
--- NOTE | 2018-07-04 09:47 | Ophthalmologist Pre-Op Note ---
Pre-Operative Progress Note H&P Reviewed The H&P was reviewed, patient examined and no changes noted. Date H&P Reviewed: Jul 04, 2018 Time H&P Reviewed: 09:47 Pre-Op Dx Cataract, Right Eye SONNY THOMAS MD Jul 04, 2018 09:47
--- NOTE | 2018-07-04 09:48 | Ophthalmology Operative Report ---
Cataract removal/placement IOL PREOPERATIVE DIAGNOSIS: Cataract Left Eye POSTOPERATIVE DIAGNOSIS: Cataract Left Eye PROCEDURE: Cataract removal and placement of posterior chamber implant, left eye SURGEON: Hamilton Thomas ANESTHESIA: Topical with sedation COMPLICATIONS: None ESTIMATED BLOOD LOSS: Minimal DESCRIPTION OF PROCEDURE: After proper informed consent was obtained, the patient, a 73 female, was taken to the Operating Room and the left eye was anesthetized with tetracaine. The left eye was then prepped and draped in the usual manner. A wire lid speculum was placed. A paracentesis was made at the left hand position. Preservative free lidocaine was injected into the anterior chamber followed by viscoelastic. A clear corneal incision was made in the temporal position. A capsulorrhexis was preformed and the central nuclear and cortical material were removed. The posterior capsule was polished and an José Luis 22.0 [id number] was placed into the capsular bag. The residual viscoelastic was aspirated and balanced saline solution was injected into the anterior chamber. Moxifloxacin was injected into the anterior chamber. The wound was checked and found to be water tight. The patient tolerated the procedure well without complications. HAMILTON THOMAS MD Jul 04, 2018 09:48
[2018-07-04 09:55] VITALS: BP 129/68
--- OUTSIDE RECORDS SUMMARY | 2018-07-04 10:31 | XMS REPORT | Continuity of Care Document ---
Demographics Preferred Language Unknown Marital Status Unknown Spiritism Affiliation Unknown Race Unknown Ethnic Group Unknown Author Author Formerly [facility] Address Unknown Phone Unavailable Allergies Active Description Code Type Severity Reaction Onset Reported/Identified Relationship to Patient Clinical Status Yes Sulfa (Sulfonamide Antibiotics) [id number] Drug Allergy Severe COUGHING Medications There is [...] CHR AIRWAY OBSTRUCT NEC 04/18/2018 ANNA MARIE GUZMAN MD Ot Z87.891 PERSONAL [...] FOR MALIGNANT NEOPLASM OF 05/14/2018 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 Z12.31 ENCNTR SCREEN MAMMOGRAM FOR MALIGNANT NE 06/06/2018 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 Z12.31 ENCNTR SCREEN MAMMOGRAM FOR MALIGNANT NE 06/18/2018 SONNY THOMAS MD L Ot Z01.818 ENCOUNTER FOR OTHER PREPROCEDURAL EXAMIN 06/18/2018 SONNY THOMAS MD L Ot Z01.818 ENCOUNTER FOR OTHER PREPROCEDURAL EXAMIN 06/18/2018 SONNY THOMAS MD L Ot Z01.818 ENCOUNTER FOR OTHER PREPROCEDURAL EXAMIN 06/18/2018 SONNY THOMAS MD L Ot Z01.818 ENCOUNTER FOR OTHER PREPROCEDURAL EXAMIN 06/19/2018 SONNY THOMAS MD L Ot Z01.818 ENCOUNTER FOR OTHER PREPROCEDURAL EXAMIN 06/20/2018 SONNY THOMAS MD Ot H25.11 AGE-RELATED NUCLEAR CATARACT, RIGHT EYE 06/23/2018 SONNY THOMAS MD L Ot H25.11 AGE-RELATED NUCLEAR CATARACT, RIGHT EYE 06/25/2018 SONNY THOMAS MD L Ot H25.11 AGE-RELATED NUCLEAR CATARACT, RIGHT EYE 06/27/2018 SONNY THOMAS MD L Ot Z01.818 ENCOUNTER FOR OTHER PREPROCEDURAL EXAMIN Procedures There is no data. Results There is no data. Encounters ACCT No. Visit Date/Time Discharge Status Pt. Type Provider Facility Loc./Unit Complaint [id number] 06/09/2012 12:51:00 06/09/2012 23:59:59 CLS Outpatient 0000 04/04/2017 09:45:40 04/04/2017 23:59:59 CLS Outpatient [id number] 06/27/2018 05:45:00 06/27/2018 13:54:00 DIS Outpatient SONNY THOMAS MD Via [facility] PREOP LEFT CATARACT [id number] 06/20/2018 08:55:00 06/20/2018 10:00:00 DIS Outpatient SONNY THOMAS MD Via [facility] RIGHT CATARACT [id number] 06/18/2018 09:45:00 06/18/2018 10:01:00 DIS Outpatient SONNY THOMAS MD Via [facility] PREOP RIGHT CATARACT [id number] 05/15/2018 07:53:00 05/15/2018 23:59:59 CLS Outpatient JUDY MEEK APRN Via [facility] RAD SCREENING [id number] 04/18/2018 07:47:00 04/18/2018 23:59:59 CLS Outpatient ANNA MARIE GUZMAN MD Via [facility] RAD SCREENING [id number] 06/17/2013 09:22:00 06/17/2013 23:59:59 CLS Outpatient JOE CISNEROS DO Via [facility] RT TABACCO USE,COPD [id number] 04/20/2013 11:35:00 04/20/2013 23:59:59 CLS Outpatient ANNA MARIE GUZMAN MD Via [facility] RAD COUGH,TOBACCOISM [id number] 11/17/2012 07:02:00 11/17/2012 23:59:59 CLS Outpatient MILTON HOOK DO Via [facility] RAD SCREENING,COPD, COUGH, [id number] 07/04/2018 10:00:00 PEN Preadmit SONNY THOMAS MD Via [facility] CATARACT LEFT EYE [id number] 10/22/2011 15:16:00 Document Registration [id number] 03/02/2010 14:05:00 Document Registration
--- NOTE | 2018-07-04 13:12 | Anesthesia-General Post-Op ---
MAC Patient Condition Mental Status/LOC: Same as Preop Cardiovascular: Satisfactory Nausea/Vomiting: Absent Respiratory: Satisfactory Pain: Controlled Complications: Absent Post Op Complications Complications None Follow Up Care/Instructions Patient Instructions None needed. Anesthesiology Discharge Order Discharge Order Patient is doing well, no complaints, stable vital signs, no apparent adverse anesthesia problems. No complications reported per nursing. DMITRY MOORE CRNA Jul 04, 2018 13:12
== END 2018-07-04 09:56 | disposition home or self-care (01) ==
LOC: SDC 08:27
PROVIDERS: ATTEND Specialist
DX: H25.12 Age-related nuclear cataract, left eye (principal); F17.210 Nicotine dependence, cigarettes, uncomplicated

== ENCOUNTER → 2018-11-12 | Outpatient (CLI) | payer MEDICARE ==
[~2018-11-12] MED LIST changes: +HOLD METFORMIN - RECEIVED CONTRAST 20 ML VIAL IV SCH; +IOHEXOL 350 MG/ML 100 ML (OMNIPAQUE 350) VIAL IV ONE; +NS 100 ML (IVPB) BAG IV ONE
--- NOTE | 2018-11-12 10:30 | Diagnostic Imaging Report ---
PROCEDURE: CT chest with contrast only. TECHNIQUE: Multiple contiguous axial images were obtained through the chest after administration of intravenous contrast. Auto Exposure Controls were utilized during the CT exam to meet ALARA standards for radiation dose reduction. INDICATION: Pulmonary micronodules. This study is performed for a 6 month followup. COMPARISON: Correlation is made with the CT chest screening study from 04/18/2018. FINDINGS: No axillary lymphadenopathy is detected. Calcified nodes in the mediastinum and aurelio are again noted, consistent with prior granulomatous exposure. The ascending thoracic aorta measures 3.9 cm in AP diameter compared to 4.2 on the prior study. No pericardial or pleural fluid is identified. Significant pleural/parenchymal changes in the apices are again noted, similar to the prior exam. The subpleural density in the anterior aspect of the right upper lobe (image 33/series 2) measures 6 mm compared with 8 mm on the prior study. The previously noted micronodule marker lesions in the right lower lobe on the prior study are not well seen on today's exam. Subpleural densities in the bilateral upper lobes laterally at the level of the aortic arch appear stable. No new abnormality is seen. The upper abdomen is unremarkable. IMPRESSION: Stable CT chest when compared with the exam from 04/18/2018. Multiple subpleural nodules appear stable. Marker tiny nodules in the right lower lobe are not well seen on today's study. The significant apical pleural/parenchymal scarring is stable. Dictated by: Dictated on workstation # [id number]
== END ==
LOC: RAD 09:41
PROVIDERS: ATTEND Family Medicine
DX: R91.8 Other nonspecific abnormal finding of lung field (principal)
CPT/HCPCS: 71260

== ENCOUNTER → 2019-05-21 | Outpatient (CLI) | payer MEDICARE, OTHER ==
[~2019-05-21] MED LIST changes: -HOLD METFORMIN - RECEIVED CONTRAST 20 ML VIAL IV SCH; -IOHEXOL 350 MG/ML 100 ML (OMNIPAQUE 350) VIAL IV ONE; -NS 100 ML (IVPB) BAG IV ONE
--- NOTE | 2019-05-21 13:11 | Diagnostic Imaging Report ---
INDICATION: Routine screening. COMPARISON: Comparison is made with prior mammograms of 05/15/2018 and 11/17/2012. 2-D and 3-D bilateral screening mammography was performed. The current study was also evaluated with a Computer Aided Detection (CAD) system. 3-D tomosynthesis was also performed and reviewed. FINDINGS: Both breasts are heterogeneously dense, limiting the sensitivity of mammography. The parenchymal pattern is stable. There is a circumscribed density in upper outer right breast posterior depth suggestive of an intramammary lymph node. Additional views and ultrasound are recommended for further evaluation. No other suspicious abnormality is seen. No microcalcifications are identified. IMPRESSION: Circumscribed density in the far posterior upper outer right breast. Additional views and ultrasound are recommended for further evaluation. ACR BI-RADS Category 0: Incomplete. (Needs additional imaging evaluation). Result letter will be mailed to the patient. Note: At least 10% of breast cancer is not imaged by mammography. Dictated by: Dictated on workstation # [id number]
== END ==
LOC: RAD 10:26
PROVIDERS: ATTEND Family Medicine
DX: Z12.31 Encounter for screening mammogram for malignant neoplasm of breast (principal); R92.8 Other abnormal and inconclusive findings on diagnostic imaging of breast
CPT/HCPCS: 77067

== ENCOUNTER → 2019-06-01 | Outpatient (CLI) | payer MEDICARE, OTHER ==
--- NOTE | 2019-06-01 13:51 | Diagnostic Imaging Report ---
INDICATION: Right breast nodule. Patient presents for additional views. COMPARISON: Correlation is made with the recent screening mammogram from 05/21/2019. TECHNIQUE: Unilateral right 2D and 3D diagnostic mammography was performed including spot compression exaggerated CC and MLO views as well as a conventional 90 degree lateral view. FINDINGS: There is a persistent nodular density in the upper outer right breast approximately 5 to 6 cm from the nipple. This has fairly benign features and most likely represents an intraparenchymal lymph node. No suspicious microcalcifications are seen. IMPRESSION: There is a circumscribed nodule in the upper outer right breast at posterior depth. Further evaluation with ultrasound is recommended and will be performed today. ACR BI-RADS Category 0: Incomplete. (Needs additional imaging evaluation). Result letter will be mailed to the patient. Note: At least 10% of breast cancer is not imaged by mammography. Dictated by: Dictated on workstation # [id number]
--- NOTE | 2019-06-01 14:17 | Diagnostic Imaging Report ---
INDICATION: Right breast nodule. This study is performed for further evaluation. COMPARISON: Correlation is made with the diagnostic mammogram from earlier this same day. FINDINGS: Sonographic interrogation of the outer right breast was performed. There is a normal-appearing lymph node at the 9 o'clock location 6 cm from the nipple measuring 7 mm x 6 cm x 3 mm. This likely accounts for the mammographic density. No other masses are detected. IMPRESSION: There is a normal-sized lymph node at the 9 o'clock location of the right breast corresponding to the mammographic density. The patient may return to routine annual screening mammography. ACR BI-RADS Category 2: Benign findings. Dictated by: Dictated on workstation # [id number]
== END ==
LOC: RAD 13:02
PROVIDERS: ATTEND Nurse Practitioner Family
DX: N63.11 Unspecified lump in the right breast, upper outer quadrant (principal); R92.2 Inconclusive mammogram

== ENCOUNTER → 2019-12-14 | Outpatient (CLI) | payer MEDICARE, OTHER ==
--- NOTE | 2019-12-14 13:12 | Diagnostic Imaging Report ---
EXAMINATION: CT Lung Screening/ INDICATION: Screening for lung cancer, 50 pack year history of smoking, current smoker. TECHNIQUE: Noncontrast, low-dose CT imaging performed according to the lung cancer screening protocol. Auto Exposure Controls were utilize during the CT exam to meet ALARA standards for radiation dose reduction. COMPARISON: 11/15/2018, 04/18/2018, and 06/17/2013. FINDINGS: Calcified mediastinal and right hilar lymph nodes are again identified. No pathologically enlarged lymph nodes within the chest. Scattered vascular calcifications. The ascending thoracic aorta is borderline enlarged measuring right at 4.0 cm. This is not significantly changed from prior examinations. The heart is within normal limits in size. No pericardial effusion. No pleural effusion. No pneumothorax. Biapical pleural-parenchymal scarring. Mild background emphysematous changes, particularly paraseptal in nature. A 0.6 x 0.5 cm pleural-based right upper lobe pulmonary nodule is again identified, series 2, image 122. This is stable from the prior examinations. Calcified granuloma within the right lower lobe. No new focal pulmonary opacity or pulmonary nodule. Inspissated secretions within the trachea extending into the right mainstem bronchus. Calcified splenic granuloma. Stable mild prominence of the bilateral adrenal glands without discrete mass. No acute osseous abnormality with scattered osseous degenerative changes. IMPRESSION: Stable 0.6 cm pleural-based right lower lobe pulmonary nodule, unchanged since March 2018. No new pulmonary nodules. Mild background emphysematous changes again noted with associated biapical pleural parenchymal scarring. Stable borderline aneurysmal dilatation of the ascending thoracic aorta. Evidence of chronic granulomatous disease. LUNG-RADS CATEGORY: 2S: Benign appearance or behavior. MODIFIER: 2S: Mild background emphysematous changes with biapical pleural parenchymal scarring. FOLLOWUP: Continued annual low-dose CT of the chest in 1 year. Dictated by: Dictated on workstation # [id number]
== END ==
LOC: RAD 11:13
PROVIDERS: ATTEND Family Medicine
DX: Z12.2 Encounter for screening for malignant neoplasm of respiratory organs (principal); J43.9 Emphysema, unspecified; I71.2 Thoracic aortic aneurysm, without rupture; J84.10 Pulmonary fibrosis, unspecified; F17.210 Nicotine dependence, cigarettes, uncomplicated

== ENCOUNTER → 2020-07-18 | Outpatient (CLI) | payer MEDICARE ==
--- NOTE | 2020-07-18 09:39 | Diagnostic Imaging Report ---
INDICATION: Routine screening. COMPARISON: 05/21/2019 and 05/15/2018. TECHNIQUE: 2D and 3D bilateral screening mammography was performed with CAD. FINDINGS: Both breasts remain heterogeneously dense, limiting the sensitivity of mammography. A circumscribed nodule in the upper outer right breast is stable. No new mass or malignant appearing microcalcifications are seen. The axillae are unremarkable. IMPRESSION: No mammographic features suspicious for malignancy are identified. ACR BI-RADS Category 2: Benign findings. Result letter will be mailed to the patient. Note: At least 10% of breast cancer is not imaged by mammography. Dictated by: Dictated on workstation # [id number]
== END ==
LOC: RAD 09:15
PROVIDERS: ATTEND Family Medicine
DX: Z12.31 Encounter for screening mammogram for malignant neoplasm of breast (principal)
CPT/HCPCS: 77063; 77067

== ENCOUNTER → 2020-12-14 | Outpatient (CLI) | payer MEDICARE ==
--- NOTE | 2020-12-14 12:20 | Diagnostic Imaging Report ---
EXAMINATION: CT chest without contrast (lung screening). TECHNIQUE: Multiple contiguous axial images were obtained through the chest without the use of intravenous contrast according to lung cancer screening protocol. All CT scans use one or more of the following dose optimizing techniques: automated exposure control, MA and/or KvP adjustment based on patient size and exam type or iterative reconstruction. HISTORY: 50 pack year history of smoking. COMPARISON: 12/14/2019 FINDINGS: There is no edema or pneumonia. No pleural effusion. No pneumothorax. No suspicious nodules. There is stable biapical pleural parenchymal scarring. There is mucous in the trachea. There is no axillary or supraclavicular lymphadenopathy. There is no mediastinal lymphadenopathy. Heart size is normal. There are mild coronary artery calcifications. No pericardial effusion. Aorta is normal in caliber. Limited views of the upper abdomen are unremarkable. There are no suspicious osseous lesions. IMPRESSION: 1. No suspicious pulmonary nodules. LUNG-RADS CATEGORY: 2 MODIFIER: None. Dictated by: Dictated on workstation # [id number]
== END ==
LOC: RAD 09:45
PROVIDERS: ATTEND Nurse Practitioner Family
DX: Z12.2 Encounter for screening for malignant neoplasm of respiratory organs (principal); F17.210 Nicotine dependence, cigarettes, uncomplicated
CPT/HCPCS: 71271

== ENCOUNTER → 2022-01-25 | Outpatient (CLI) | payer MEDICARE, OTHER ==
--- NOTE | 2022-01-25 15:38 | Diagnostic Imaging Report ---
EXAMINATION: CT chest without contrast (lung screening). TECHNIQUE: Multiple contiguous axial images were obtained through the chest without the use of intravenous contrast according to lung cancer screening protocol. All CT scans use one or more of the following dose optimizing techniques: automated exposure control, MA and/or KvP adjustment based on patient size and exam type or iterative reconstruction. HISTORY: 50 pack year history of smoking. COMPARISON: 12/14/2020 FINDINGS: There is no edema or pneumonia. No pleural effusion. No pneumothorax. No suspicious nodules. There is biapical scarring. There is no axillary or supraclavicular lymphadenopathy. There is no mediastinal lymphadenopathy. Heart size is normal. There are mild coronary artery calcifications. No pericardial effusion. Aorta is upper limits of normal in caliber. Limited views of the upper abdomen are unremarkable. There are no suspicious osseus lesions. IMPRESSION: 1. No suspicious pulmonary nodules. LUNG-RADS CATEGORY: 2 MODIFIER: None. Dictated by: Dictated on workstation # [id number]
--- NOTE | 2022-01-25 19:57 | Diagnostic Imaging Report ---
INDICATION: Screening. EXAMINATION: 3D bilateral digital screening mammogram with CAD. The current study was also evaluated with a Computer Aided Detection (CAD) system. COMPARISON: This study was compared to the prior exams of 07/18/2020, 05/21/2019 and 05/15/2018. At this time there are no current complaints. FINDINGS: The fibroglandular tissue in both breasts is heterogeneously dense. This does limit the sensitivity of this exam. When compared to the previous study there does not appear to have been any significant change. There is no primary or secondary sign of malignancy noted. IMPRESSION: There is no evidence for malignancy. ACR BI-RADS Category 1: Negative. Result letter will be mailed to the patient. Note: At least 10% of breast cancer is not imaged by mammography. Dictated by: Dictated on workstation # [id number]
== END ==
LOC: RAD 11:00
PROVIDERS: ATTEND Family Medicine
DX: Z12.2 Encounter for screening for malignant neoplasm of respiratory organs (principal); Z12.31 Encounter for screening mammogram for malignant neoplasm of breast; R91.8 Other nonspecific abnormal finding of lung field; F17.210 Nicotine dependence, cigarettes, uncomplicated
CPT/HCPCS: 71271; 77063; 77067

== ENCOUNTER → 2022-11-06 | Outpatient (CLI) | payer MEDICARE, OTHER ==
--- NOTE | 2022-11-06 09:28 | Diagnostic Imaging Report ---
INDICATION: Postmenopausal screening for osteoporosis COMPARISON: None FINDINGS: AP Spine L1-L4: [BMD (g/cm2): 0.714] [T-Score: -4.1] [Z-Score: -1.8] [BMD Previous: na] [BMD % Change: na] LT Hip Neck: [BMD (g/cm2): 0.618] [T-Score: -3.0] [Z-Score: -0.8] LT Hip Total: [BMD (g/cm2):0.597] [T-Score:-3.3] [Z-Score: -1.2] [BMD Previous: na] [BMD % Change: na] RT Hip Neck: [BMD (g/cm2):0.580] [T-Score:-3.3] [Z-Score:-1.1] RT Hip Total: [BMD (g/cm2):0.577] [T-score:-3.4] [Z-Score:-1.3] [BMD Previous:na] [BMD % Change:na] *Indicates significant change from prior examination based on 95% confidence level. World Health Organization criteria for BMD interpretation classify patients as Normal (T-score at or above -1.0), Osteopenic (T-score between -1.0 and -2.5) or Osteoporotic (T-score at or below -2.5). LIMITATIONS AND MODIFICATION: None. FRACTURE RISK (FRAX SCORE): The ten year probability of (%): Major Osteoporotic Fracture: [na] Hip Fracture: [na] IMPRESSION: 1. Osteoporosis. 2. Baseline examination. 3. See below National Osteoporosis Foundation guidelines on when to potentially initiate pharmacologic therapy. Based on the National Osteoporosis Foundation Guidelines, pharmacologic treatment should be initiated in any of the following, unless clinical conditions suggest otherwise: * Any patient with prior fragility fracture of the hip or vertebrae. A spine fracture indicates 5X risk for subsequent spine fracture and 2X risk for subsequent hip fracture. * Osteoporosis (T-score <-2.5). * Postmenopausal women and men age 50 and older with low bone mass/osteopenia (T-score between -1.0 and -2.5) by DXA and 10-year major osteoporotic fracture greater than 20% or a 10-year probability of hip fracture greater than 3%. These fracture risks are supplied above in the FRAX score, if applicable. * Clinician judgement and/or patient preferences may indicate treatment for people with 10-year fracture probabilities above or below these levels. Dictated by: Dictated on workstation # [id number]
== END ==
LOC: RAD 07:58
PROVIDERS: ATTEND Family Medicine
DX: Z13.820 Encounter for screening for osteoporosis (principal); M81.0 Age-related osteoporosis without current pathological fracture; N95.1 Menopausal and female climacteric states
CPT/HCPCS: 77080

== ENCOUNTER → 2023-01-31 | Outpatient (CLI) | payer MEDICARE ==
--- NOTE | 2023-01-31 09:35 | Diagnostic Imaging Report ---
CT Lung Screening INDICATION:Screening for lung cancer, 50 pack year history of smoking, current smoker. TECHNIQUE: Noncontrast, low-dose CT imaging performed according to the lung cancer screening protocol. Auto Exposure Controls were utilize during the CT exam to meet ALARA standards for radiation dose reduction. COMPARISON:01/25/2022 and 12/14/2020. FINDINGS: Calcified mediastinal and hilar lymph nodes are again identified. No pathologically enlarged lymph nodes within the chest. Aneurysmal of the ascending thoracic aorta measuring up to 4.1 cm. Mild scattered vascular calcifications, including coronary arteries. The heart is within normal limits in size. No pericardial effusion. No pleural effusion. The trachea is patent. Biapical pleural parenchymal scarring. Moderate background emphysematous changes, with an upper lobe predilection. No pneumothorax. Mild scattered endobronchial filling defects are identified, felt to relate to mild mucous plugging. Scattered regions of scarring. Calcified granuloma within the right middle lobe. No suspicious or actionable pulmonary nodule. Calcified splenic granuloma. Stable diffuse mild prominence of the bilateral adrenal gland is again identified. Minimally visualized upper abdomen is otherwise unremarkable. Mild scattered osseous degenerative changes without acute osseous abnormality. IMPRESSION: No suspicious or actionable pulmonary nodule. Moderate background emphysematous changes with associated fibrotic changes. Evidence of chronic granulomatous disease. Mild aneurysmal dilatation of the ascending thoracic aorta. LUNG-RADS CATEGORY:1: Negative MODIFIER: Moderate background emphysematous changes with associated mild fibrotic changes. Mild aneurysmal dilatation of ascending thoracic aorta. Follow-up: Continued annual low-dose CT of the chest in 12 months. Dictated by: Dictated on workstation # [id number]
== END ==
LOC: RAD 08:00
PROVIDERS: ATTEND Nurse Practitioner Family
DX: Z12.2 Encounter for screening for malignant neoplasm of respiratory organs (principal); I71.21 Aneurysm of the ascending aorta, without rupture; D71 Functional disorders of polymorphonuclear neutrophils; J43.9 Emphysema, unspecified; F17.210 Nicotine dependence, cigarettes, uncomplicated
CPT/HCPCS: 71271

== ENCOUNTER → 2023-01-31 | Outpatient (CLI) | payer MEDICARE ==
--- NOTE | 2023-01-31 12:48 | Diagnostic Imaging Report ---
Indication: Routine screening. Comparison is made with prior mammogram from 01/25/2022 and 07/18/2020. 2-D and 3-D bilateral screening mammography was performed with CAD. The current study was also evaluated with a Computer Aided Detection (CAD) system. Both breasts are heterogeneously dense, limiting the sensitivity of mammography. The parenchymal pattern is stable. No mass or malignant-appearing microcalcifications are seen. There are benign calcifications on the right. Axillae are unremarkable. IMPRESSION: BI-RADS Category 2 No mammographic features suspicious for malignancy are identified. ACR BI-RADS Category 2: Benign findings. Result letter will be mailed to the patient. Note: At least 10% of breast cancer is not imaged by mammography. Dictated by: Dictated on workstation # [id number]
== END ==
LOC: RAD 07:03
PROVIDERS: ATTEND Nurse Practitioner Family
DX: Z12.31 Encounter for screening mammogram for malignant neoplasm of breast (principal); F17.210 Nicotine dependence, cigarettes, uncomplicated
CPT/HCPCS: 77063; 77067